=== PATIENT | female | born 1975 | race African-American/Black ===

== ENCOUNTER 2019-11-06 05:30 | Inpatient (IN) | payer SELFPAY ==
[2019-11-06] MEDS ORDERED: Ketorolac Tromethamine 30 MG/ML VIAL ONE (05:49)
[2019-11-06 06:27] LABS: #Eosinphils 0.2 thou/uL (0.0-0.7); #Lymphocytes 2.1 thou/uL (1.20-3.40); #Monocytes 0.5 thou/uL (0.11-0.59); #Neutrophils 3.1 thou/uL (1.40-6.50); %Basophils 0.7 % (0.0-1.0); %Eosinophils 3.9 % (0.0-10.0); %Lymphocytes 34.6 % (21.0-51.0); %Monocytes 8.2 % (0.0-10.0); %Neutrophils 52.7 % (42.0-75.0); Hemoglobin 10.4 g/dL (12.0-16.0); Mean Corpuscular HGB CONC 32.3 g/dL (32.0-36.0); Mean Corpuscular Hemoglobin 27.6 pg (27.0-31.0); Mean Corpuscular Volume 85.2 fL (78.0-98.0); Mean Platelet Volume 7.3 fL (7.4-10.4); Platelet Count 269 thou/uL (130-400); RBC Distribution Width 17.1 % (11.5-14.5); Red Blood Cell (RBC) Count 3.78 mill/uL (4.20-5.40)
[2019-11-06 06:47] LABS: ALT (SGPT) Less than 7 U/L (8-55); AST (SGOT) 9 U/L (5-34); Albumin 3.8 g/dL (3.5-5.0); Alkaline Phosphatase 78 U/L (40-110); Anion Gap 13 mmol/L (10-20); BUN (Urea Nitrogen) 9 mg/dL (7.0-18.7); Bilirubin, Total 0.4 mg/dL (0.2-1.2); Calc. Creatinine Clearance 0 mL/min (70-130); Calcium 8.9 mg/dL (7.8-10.44); Carbon Dioxide 24 mmol/L (22-29); Chloride 106 mmol/L (98-107); Estimated GFR-MDRD Greater than 90; Globulin 3.1 g/dL (2.4-3.5); Glucose 142 mg/dL (70-105); Potassium 3.8 mmol/L (3.5-5.1); Protein, Total 6.9 g/dL (6.0-8.3); Sodium 139 mmol/L (136-145)
--- NOTE | 2019-11-06 08:32 | RAD ---
Exam: Chest one view HISTORY:Chest pain Comparison: 12/07/2018 FINDINGS: Cardiac silhouette: Normal Aorta: Unremarkable Pulmonary vessels: Normal Costophrenic angles: Clear LUNGS: No masses or consolidation. Pneumothorax: None Osseous abnormalities: None IMPRESSION: No acute cardiopulmonary process.
[2019-11-06 10:47] LABS: CKMB 2.7 ng/mL (0-6.6)
[2019-11-06] MEDS ORDERED: Aspirin Chewable 81 MG TAB ONE (10:57)
[2019-11-06] MEDS ORDERED: Enoxaparin Sodium 80 MG/0.8 ML SYRINGE ONE (10:57)
--- NOTE | 2019-11-06 11:02 | PDOC.FPRHP ---
- History of Present Illness Chief Complaint: chest pain History of Present Illness: Patient is a 44F with PMHx of DM2, HTN, HLD, migraines, conversion disorder? that presents with chest pain. Patient reports that the pain began this morning at 3am in her back. She states it recurred around 5am and it started to wrap around to her chest and down her arms. She denies any chest pain currently. She states that this has not ever happened to her before. No previous [place] hx. She states the pain was accompanied by feelings of nausea, lightheadedness, dizziness, and some sob that have since improved. She also endorses 1 episode of loose stool yesterday. Has not seen a physician in over 1 year, has not been taking any medications for the same time period because she does not have insurance. PCP: [facility] ED Course: therapeutic lovenox, toradol, asa, 1L NS - Allergies/Adverse Reactions Allergies Allergy/AdvReac Type Severity Reaction Status Date / Time No Known Allergies Allergy Verified 11/06/19 12:48 - Home Medications Medication Instructions Recorded Confirmed Type No Known 11/06/19 11/06/19 History - History PMHx: DM2, HTN, HLD, Migraines, conversion disorder? PSHx: dermoid cyst removal FHx: DM, HTN Social: smokes 3 cigars/day, drinks 1x/week, no drug use - Review of Systems General: denies: fever/chills, weight/appetite/sleep changes Eyes: denies: eye pain ENT: denies: nasal congestion, rhinorrhea Respiratory: reports: cough (chronic), shortness of breath Cardiovascular: reports: chest pain. denies: edema Gastrointestinal: reports: nausea, diarrhea. denies: vomiting Genitourinary: denies: incontinence, polyuria Skin: denies: rashes, jaundice Musculoskeletal: reports: tenderness (shoulders, arms) Neurological: denies: numbness, syncope Psychological: denies: anxiety, depression - Vital signs BP: [164/85] HR: [77] RR: [23] Tmax: [98.6] Pox: [100]% on [RA] Wt: [77.11kg] - Physical Exam Constitutional: NAD, awake, alert and oriented HEENT: EOMI, MMM Neck: supple, FROM Chest: no-tender to palpation, no lesions Heart: RRR, normal S1/S2 Lungs: CTAB, no wheezing Abdomen: soft, non-tender, bowel sounds present Musculoskeletal: normal structure, normal tone Neurological: no focal deficit, normal sensation Skin: no rash/lesions, good turgor Heme/Lymphatic: no unusual bruising or bleeding, no purpura Psychiatric: normal mood and affect, good judgment and insight FMR H&P: Results - Labs Result Diagrams: 11/06/19 06:19 11/06/19 06:19 Lab results: WBC 6.0 thou/uL (4.8-10.8) 11/06/19 06:19 Hgb 10.4 g/dL (12.0-16.0) L 11/06/19 06:19 Hct 32.2 % (36.0-47.0) L 11/06/19 06:19 MCV 85.2 fL (78.0-98.0) 11/06/19 06:19 Plt Count 269 thou/uL (130-400) 11/06/19 06:19 Neutrophils % 52.7 % (42.0-75.0) 11/06/19 06:19 Sodium 139 mmol/L (136-145) 11/06/19 06:19 Potassium 3.8 mmol/L (3.5-5.1) 11/06/19 06:19 Chloride 106 mmol/L (98-107) 11/06/19 06:19 Carbon Dioxide 24 mmol/L (22-29) 11/06/19 06:19 BUN 9 mg/dL (7.0-18.7) 11/06/19 06:19 Creatinine 0.73 mg/dL (0.6-1.1) 11/06/19 06:19 Glucose 142 mg/dL (70-105) H 11/06/19 06:19 Calcium 8.9 mg/dL (7.8-10.44) 11/06/19 06:19 Total Bilirubin 0.4 mg/dL (0.2-1.2) 11/06/19 06:19 AST 9 U/L (5-34) 11/06/19 06:19 ALT Less than 7 U/L (8-55) L 11/06/19 06:19 Alkaline Phosphatase 78 U/L (40-110) 11/06/19 06:19 CK-MB (CK-2) 2.7 ng/mL (0-6.6) 11/06/19 09:50 Serum Total Protein 6.9 g/dL (6.0-8.3) 11/06/19 06:19 Albumin 3.8 g/dL (3.5-5.0) 11/06/19 06:19 - EKG Interpretation EKG: NSR - Radiology Interpretation Chest x-ray Status: report reviewed by me (No cardiopulmonary process) FMR H&P: A/P - Problem List (1) HTN (hypertension) Current Visit: Yes Status: Chronic Code(s): I10 - ESSENTIAL (PRIMARY) HYPERTENSION (2) HLD (hyperlipidemia) Current Visit: Yes Status: Chronic Code(s): E78.5 - HYPERLIPIDEMIA, UNSPECIFIED (3) DM2 (diabetes mellitus, type 2) Current Visit: Yes Status: Chronic (4) Conversion disorder Current Visit: Yes Status: Chronic Code(s): F44.9 - DISSOCIATIVE AND CONVERSION DISORDER, UNSPECIFIED (5) Migraines Current Visit: Yes Status: Chronic Code(s): G43.909 - MIGRAINE, UNSP, NOT INTRACTABLE, WITHOUT STATUS MIGRAINOSUS (6) Atypical chest pain Current Visit: Yes Status: Acute Code(s): R07.89 - OTHER CHEST PAIN (7) Normocytic anemia Current Visit: Yes Status: Chronic Code(s): D64.9 - ANEMIA, UNSPECIFIED - Plan Patient is a 44F with PMHx of DM2, HTN, HLD, conversion disorder, migraines that is being admitted for workup for atypical chest pain #Atypical chest pain -chest pain started this am, started in back and wrapped around to chest/arms -EKG: nsr -Trop: 0.016>0.147, trend trops -CXR: negative for acute cardiopulmonary process -asa -nitrostat prn -ekg for chest pain recurrence -telemetry monitoring overnight -echo ordered, pending -stress test in am -npo at midnight -FLP, TSH, A1C #Normocytic anemia -denies blood in stool and urine -iron studies, folate, b12 pending -will continue to monitor #DM2 -has not been on meds for >1 yr -reportedly used to take insulin -A1C -ISS -ACHS checks #HTN -on no home meds -hydralazine IV prn -will start lisinopril #HLD -FLP pending #Conversion disorder/complex migraines -patient reports at times when she is stressed her limbs will grow weak, and will normalize -no reports of weakness at this time DVT ppx: SCDs Dispo: tele obs for atypical cp workup including flp, tsh, a1c, echo, stress test in am Code: Full PCP: CC FMR H&P: Upper Level - Pertinent history 44 yo F here with complaint of back pain across her shoulder blades with associated nausea of SOB that onset at about 0300 today. She denies previous symptoms similar to these. She has no cardiac hx. She has FHx of HTN. Her medical Hx is significant for uncontrolled DM2. Upon arrival to the ER, her vitals other than elevated BP were normal. Initial trop was negative, however repeat was indeterminate. PMHx: HTN, DM2 PSHx: None FHx: Paternal HTN and DM2 Social Hx: smokes daily, infrequent ETOH, no drugs - Pertinent findings See environmental intern note for full ROS, PE, vitals, and labs ROS Gen denies fever or chills CV Complains of pressure. Denies palpitations. Resp Complains of previous SOB. Denies cough or hemoptysis GI complains of previous nausea denies dysuria, frequency, urgency Neuro Denies numbness, weakness, changes in vision PE General A&O x4 HEENT NCAT CV RRR, no murmur Resp CTA Abd No distension or tenderness Extremities no edema Neuro No focal deficits - Plan Date/Time: 11/06/19 1102 IZack DO, have evaluated this patient and agree with findings/plan as outlined by environmental intern resident. Pertinent changes/additions are listed here. 1. Elevated troponin -Concern for possible CAD vs arrhythmia -EKG shows NSR without T wave or ST changes -Admit to tele obs -Trend trops -Lipid, TSH, A1c -Stress in am 2. HTN -Start SHIRA-I 3. DM2 -Start metformin -A1c as above -Low carb diet when not NPO -Accucheck ACHS -Mild SSI 4. Normocytic anemia - hemodynamically stable and asymptomatic - check Fe studies, B12, Folate PPx SCD Diet HH and Low carb Code Full Dispo: Good condition. Expect overnight obs with possible dc in morning following stress test Addendum - Attending - Attending Attestation Date/Time: 11/06/19 1404 I personally evaluated the patient and discussed the management with Dr. Petit /Len I agree with the History, Examination, Assessment and Plan documented above with any addition or exceptions noted below. 44 yo AAF PMH IDDM, HTN, non compliance. CP since 0300. Started midline lower back and wrapped around right chest. States it is a squeezing in nature. Denies cough, SOB, or recent travel. No known CVD. Grandma with UT. Reproducable to palpation. Worse along level T8-10. Exam otherwise unremarkable. Labs show elevated trop 0.016->0.1-> 0.3. EKG unremarkable with normal intervals NO ST Changes. CXR unremarkable. Admit for NSTEMI Type 1 vs type 2. Has received therapeutic lovenox. Will add BNP and D-dimer to labs to r/o PE. Cardiology consultation. F/U recommendations but will likely need cath.
[2019-11-06] MEDS ORDERED: Enoxaparin Sodium 30 MG/0.3 ML SYRINGE ONE (11:24)
[2019-11-06] MEDS ORDERED: Enoxaparin Sodium 40 MG/0.4 ML SYRINGE ONE (11:24)
[2019-11-06] MEDS ORDERED: Iopamidol 370 76% 100 ML VIAL ONE (12:39)
[2019-11-06] MEDS ORDERED: Ondansetron ODT 4 MG TAB SL PRN (12:40)
[2019-11-06] MEDS ORDERED: Ondansetron PF 4 MG/2 ML Vial IVP PRN (12:40)
[2019-11-06] MEDS ORDERED: Nitroglycerin 0.4 MG TAB (25 Tab Bottle) PO PRN (12:46)
[2019-11-06] MEDS ORDERED: hydrALAZINE 20 MG/ML VIAL SLOW IVP PRN (12:46)
[2019-11-06] MEDS ORDERED: Dextrose 5% in Water 1,000 ML IV PRN (12:46)
[2019-11-06] MEDS ORDERED: Acetaminophen 325 MG TAB PO PRN (12:46)
[2019-11-06] MEDS ORDERED: Famotidine 20 MG TAB PO PRN (12:46)
[2019-11-06] MEDS ORDERED: HumaLOG 300 UNITS/3 ML VIAL SC PRN ×2 (12:46)
[2019-11-06] MEDS ORDERED: Dextrose 50% Abboject 50 ML SYRINGE SLOW IVP PRN (12:46)
[2019-11-06] MEDS ORDERED: Nicotine 14 MG PATCH TD SCH (13:00)
[2019-11-06 13:17] LABS: BHCG - Serum Negative (NEGATIVE); Pregs Control Background? CLEAR/WHITE (CLR/WHITE); Pregs Control Bar Appear? YES (CONTROL BAR)
[2019-11-06] MEDS ORDERED: Lisinopril 10 MG TAB PO SCH (13:30)
[2019-11-06] MEDS ORDERED: Communication Order-Pharmacy FS SCH (15:15)
--- NOTE | 2019-11-06 15:33 | CON ---
DATE OF CONSULTATION: 11/06/2019 INDICATION FOR CONSULTATION: A 44-year-old female with back pain, which radiated to the chest area with risk factors for coronary artery disease and slightly abnormal cardiac enzymes. HISTORY OF PRESENT ILLNESS: This is a very pleasant 44-year-old female with risk factors for coronary artery disease, which include diabetes, hypertension, and dyslipidemia, who has had chest pain early this morning in her back. She got up, she massaged, at least her boyfriend did, and it went away. She went back to bed. She woke up again with the pain. At this time, it radiated to both axillary areas in the arm. She describes being too tight. She has some shortness of breath. She then presented to the hospital to the emergency room. Her EKG was unremarkable. Cardiac enzymes showed first set of enzymes to be negative and this is slightly increased up to 0.147. We were asked to see her. She is actually just had an echocardiogram performed, we will also evaluate that. She has had no previous cardiac history, but does have significant risk factors for coronary artery disease. PAST MEDICAL HISTORY: Significant for conversion disorder and history of migraines. She is anemic. She has dyslipidemia, hypercholesterolemia, and also hypertension and type 2 diabetes. She has had no other significant surgeries. SOCIAL HISTORY: She is single. She smokes cigarettes. She started smoking about 2 years ago. Previous to that, did not smoke. She denies any illicit drug use. FAMILY HISTORY: Noncontributory for any early heart disease. ALLERGIES: THERE ARE NO KNOWN DRUG ALLERGIES. MEDICATIONS: Her medications in the hospital include; 1. Aspirin. 2. Lovenox. 3. Lisinopril. 4. Metformin. 5. Nicoderm patch. REVIEW OF SYSTEMS: A 12-point review of systems unremarkable. There was no history of present illness. PHYSICAL EXAMINATION: GENERAL: Reveals a well-developed, well-nourished female, in no acute distress. VITAL SIGNS: Blood pressure is 160/89 and heart rate is 85, shows a sinus rhythm. She is afebrile and respiratory rate 16. HEENT: Shows head to be normocephalic and atraumatic. Carotid pulses are present. There were no bruits. CHEST: Clear to auscultation without rales, rhonchi, or wheezing. CARDIOVASCULAR: Reveals a regular rate and rhythm. Normal S1 and S2. There is no S3 or S4. There were no significant murmurs, heaves, thrills, bruits, or rubs noted. ABDOMEN: Soft and nontender. Positive bowel sounds are present. EXTREMITIES: Show no clubbing, cyanosis, or edema. Peripheral pulses are present. NEUROLOGIC: She appears to be intact. SKIN: Warm and dry. We will continue to monitor very closely. LABORATORY DATA: Her first set of enzymes showed a troponin I of 0.016, increased up to 0.1 and then up to 0.3. We will continue to trend these enzymes. If they remains stable, then she can undergo a stress test. IMPRESSION AND PLAN: 1. Chest pain, which may or may not be cardiac in nature. She did have slight elevation of cardiac enzymes making it somewhat suspicious and she does have risk factors for coronary artery disease and she will need further evaluation, if not cardiac catheterization at least by stress testing. 2. History of diabetes. This will be dealt with by the primary care service. Her blood sugar was 142 and appears to be under reasonable control. 3. Anemia. Hemoglobin 10.9 of uncertain etiology. She has normal renal function. 4. Hypertension. We will need to adjust her medications in order to keep the blood pressure in the 130s. 5. Hypercholesterolemia. I do not see a recent cholesterol level. We will need to evaluate to see exactly what the cholesterol is and whether or not the medications would be appropriate. 6. Tobacco abuse. She will be advised strongly to stop smoking altogether. At this time, I do not see that she is actually on any statin medications. We will need to start her on some kind of medications for her cholesterol. Further recommendations will depend on the results from the echocardiogram and further cardiac enzyme evaluation. Job ID: [id number]
[2019-11-06] MEDS ORDERED: Verapamil 5 MG/2 ML VIAL ONE (15:54)
[2019-11-06] MEDS ORDERED: Heparin 10,000 UNITS/1 ML VIAL ONE (15:54)
[2019-11-06] MEDS ORDERED: Nitroglycerin 100MG/250ML BOT 250 ML ONE (15:54)
[2019-11-06] MEDS ORDERED: metFORMIN 500 MG TAB PO SCH (17:00)
[2019-11-06] MEDS ORDERED: Acetaminophen/Codeine 30-300mg Tablet PO PRN ×4 (17:14)
[2019-11-06] MEDS ORDERED: Sodium Chloride 0.9% 200 ML IV PRN ×2 (17:14)
[2019-11-06] MEDS ORDERED: Nitroglycerin 0.4 MG TAB (25 Tab Bottle) SL PRN ×2 (17:14)
[2019-11-06] MEDS ORDERED: Communication Order-Pharmacy FS ONE (17:25)
[2019-11-06 18:08] LABS: Troponin I 0.763 ng/mL (< 0.028)
[2019-11-06] MEDS ORDERED: Vancomycin 1.5 GRAM/300 ML BAG 1.5 GM in Premix Bag 1 BAG IVPB SCH (18:30)
[2019-11-06] MEDS ORDERED: Enoxaparin Sodium 80 MG/0.8 ML SYRINGE SC SCH (21:00)
[2019-11-06] MEDS ORDERED: Triple Antibiotic Ointment 30 GM TUBE TOP SCH (21:00)
--- NOTE | 2019-11-07 00:22 | CON ---
DATE OF CONSULTATION: 11/06/2019 REASON FOR CONSULTATION: To evaluate patient for coronary artery bypass grafting. HISTORY OF PRESENT ILLNESS: Ms. Crockett is a 44-year-old woman who was admitted through the emergency department. She has had chest pain and was brought to the emergency department. She has history of longstanding diabetes mellitus. She has been on insulin and metformin previously. She is back on metformin now. She underwent cardiac catheterization earlier today. She has minimal LAD disease. She has significant OM disease in 3 separate branches. She also has significant right coronary disease. Potential bypassable targets include a right coronary, OM1, 2 and 3. Echocardiogram shows an ejection fraction of 30% to 35% percent with no significant valvular disease. PAST MEDICAL HISTORY: 1. Coronary artery disease. 2. Diabetes mellitus. 3. Hypertension. 4. Dyslipidemia. PAST SURGICAL HISTORY: 1. [place] as a child for what sounds like an allergic reaction and resuscitation. 2. MRSA infection and debridement of abscesses approximately 10 years ago. 3. Removal of ovarian cyst. ALLERGIES: NONE. CURRENT MEDICATIONS: Noted. SOCIAL HISTORY: She is single. She is accompanied by her boyfriend. She smokes cigarettes, but does not use any illicit drugs. REVIEW OF SYSTEMS: A 10-point review of systems is performed and is negative except as above. PHYSICAL EXAMINATION: GENERAL: This is a well-developed, well-nourished young woman, resting comfortably on the telemetry floor. VITAL SIGNS: Her height is 5 feet 3 inches, weight is 160 pounds, BSA is 1.8, temperature is 98.6, pulse is 78 and regular, blood pressure is 138/68. HEENT: Sclerae nonicteric. Pupils equal round bilaterally. NECK: Supple without bruit. CHEST: Clear bilaterally. HEART: Rhythm is regular without murmur. ABDOMEN: Soft and nontender with no masses. EXTREMITIES: No edema. VASCULAR: She has palpable carotid, radial, femoral, dorsalis pedis pulses bilaterally. She was catheterized through a right radial venous. There is no venous varicosities or venous stasis changes. LABORATORY DATA: Of note, hemoglobin is 10.4, platelet count is 269,000, potassium is 3.8, creatinine is 0.73. IMAGING: Chest x-ray shows no dominant lung mass. ASSESSMENT AND PLAN: This is a 44-year-old woman with severe three-vessel disease. Risks, benefits, and options of coronary artery bypass grafting were discussed with her. Plan is for bypass to OM1, 2, 3 and right coronary. Job ID: [id number]
[2019-11-07 04:51] LABS: #Basophils 0.1 thou/uL (0.0-0.2); #Eosinphils 0.2 thou/uL (0.0-0.7); #Lymphocytes 1.9 thou/uL (1.20-3.40); #Monocytes 0.4 thou/uL (0.11-0.59); %Basophils 1.4 % (0.0-1.0); %Eosinophils 3.4 % (0.0-10.0); %Lymphocytes 28.5 % (21.0-51.0); %Monocytes 6.4 % (0.0-10.0); %Neutrophils 60.4 % (42.0-75.0); Hemoglobin 9.9 g/dL (12.0-16.0); Mean Corpuscular HGB CONC 32.3 g/dL (32.0-36.0); Mean Corpuscular Volume 83.7 fL (78.0-98.0); Mean Platelet Volume 7.5 fL (7.4-10.4); Platelet Count 237 thou/uL (130-400); RBC Distribution Width 16.9 % (11.5-14.5); Red Blood Cell (RBC) Count 3.67 mill/uL (4.20-5.40); White Blood Cell (WBC) Count 6.6 thou/uL (4.8-10.8)
[2019-11-07 04:58] LABS: Hemoglobin A1c 5.7 % (4.0-6.0)
[2019-11-07 05:13] LABS: Anion Gap 12 mmol/L (10-20); BUN (Urea Nitrogen) 8 mg/dL (7.0-18.7); Calc. Creatinine Clearance 118 mL/min (70-130); Calcium 8.8 mg/dL (7.8-10.44); Carbon Dioxide 24 mmol/L (22-29); Cardiac Risk 6.5 (Less than 4.5); Chloride 106 mmol/L (98-107); Cholesterol 220 mg/dl (< 200 Desired); Estimated GFR-MDRD Greater than 90; Glucose 129 mg/dL (70-105); HDL Cholesterol 34 mg/dL (>60 Neg Risk); Iron 18 ug/dL (50-170); Iron Binding Capacity, Total 440 mcg/dL (265-497); LDL Cholesterol, Calculated 149 mg/dL; Potassium 3.6 mmol/L (3.5-5.1); Sodium 138 mmol/L (136-145); Transferrin, Serum 352 mg/dL (180-382); Triglycerides 184 mg/dL (Less than 150)
[2019-11-07 05:32] LABS: Thyroid Stimulating Hormone 1.4128 uIU/mL (0.35-4.94)
--- NOTE | 2019-11-07 05:37 | PDOC.FM ---
- Subjective Subjective: Patient doing okay this morning. Had a difficult time sleeping last night. Had a headache with the nitro that has since resolved. Discussed plan of care of CABG today, patient agreeable with plan of care. Discussed smoking cessation with patient as well. - Objective Vital Signs & Weight: Vital Signs (12 hours) Temp Pulse Resp BP Pulse Ox 11/07/19 02:56 85 18 137/87 98 11/06/19 22:35 98.3 F 84 16 130/69 98 11/06/19 20:00 99 11/06/19 19:21 98.0 F 76 16 143/70 H 99 Weight Weight 73.437 kg I&O: 11/05/19 11/06/19 11/07/19 06:59 06:59 06:59 Intake Total 1240 Output Total 300 Balance 940 Result Diagrams: 11/07/19 04:37 11/07/19 04:37 EKG Reviewed by me: Yes (sinus 70s, depressed ST) Phys Exam - Physical Examination Constitutional: NAD HEENT: moist MMs, sclera anicteric Neck: supple, full ROM Respiratory: no wheezing, clear to auscultation bilateral Cardiovascular: RRR, no significant murmur Gastrointestinal: soft, non-tender Musculoskeletal: no edema, pulses present Neurological: non-focal, moves all 4 limbs Psychiatric: normal affect, A&O x 3 Skin: no rash, normal turgor Dx/Plan (1) HTN (hypertension) Code(s): I10 - ESSENTIAL (PRIMARY) HYPERTENSION Status: Chronic (2) HLD (hyperlipidemia) Code(s): E78.5 - HYPERLIPIDEMIA, UNSPECIFIED Status: Chronic (3) DM2 (diabetes mellitus, type 2) Status: Chronic (4) Conversion disorder Code(s): F44.9 - DISSOCIATIVE AND CONVERSION DISORDER, UNSPECIFIED Status: Chronic (5) Migraines Code(s): G43.909 - MIGRAINE, UNSP, NOT INTRACTABLE, WITHOUT STATUS MIGRAINOSUS Status: Chronic (6) Atypical chest pain Code(s): R07.89 - OTHER CHEST PAIN Status: Acute (7) Normocytic anemia Code(s): D64.9 - ANEMIA, UNSPECIFIED Status: Chronic (8) NSTEMI (non-ST elevated myocardial infarction) Code(s): I21.4 - NON-ST ELEVATION (NSTEMI) MYOCARDIAL INFARCTION Status: Acute - Plan Plan: Patient is a 44F with PMHx of DM2, HTN, HLD, conversion disorder, migraines that is admitted for NSTEMI #NSTEMI -chest pain started 1/9 am started in back and wrapped around to chest/arms -EKG: nsr, repeat EKG NSR without ST elevation -CXR: negative for acute cardiopulmonary process -Trop: 0.016>0.147> 0.390>0.763 -cardiology, Dr. Guthrie, consulted; performed cath on patient 11/06 -cath: EF 50-55%, multi-vessel CAD with CABG recommended -echo: EF 30-35% -asa -nitrostat prn -CV Surgery consulted, Dr. Peace, plans for CABG today -triglycerides 184, total chol 220, LDL 149, HDL 34, begin statin today #Normocytic anemia -denies blood in stool and urine -iron studies: iron low 18, TIBC wnl 440, transferrin wnl 352, ferritin low 9.85 - vit B 12 wnl 643 - folate pending - likely iron deficiency anemia, possibly in combination with folate deficiency -will start iron at this time -will continue to monitor #Hx of DM2, resolved -has not been on meds for >1 yr -reportedly used to take insulin -A1C 5.7, wnl #HTN -on no home meds -hydralazine IV prn -lisinopril started #HLD -triglycerides 184, total chol 220, LDL 149, HDL 34 -begin statin today #Conversion disorder/complex migraines -patient reports at times when she is stressed her limbs will grow weak, and will normalize -no reports of weakness at this time DVT ppx: SCDs Dispo: tele inpatient for NSTEMI, plan for CABG today Code: Full PCP: [facility]
[2019-11-07 05:43] LABS: Ferritin 9.85 ng/mL (10-291)
[2019-11-07] MEDS ORDERED: ceFAZolin 1 GM/D5W 1 GM in Premix Bag 1 BAG IVPB SCH (06:00)
[2019-11-07] MEDS ORDERED: Midazolam HCl 2 mg/2 ml Vial ONE ×2 (08:24→08:35)
[2019-11-07] MEDS ORDERED: Albumin 5% 500 ML ONE (08:25)
[2019-11-07] MEDS ORDERED: Fentanyl 100 MCG/2 ML VIAL ONE ×2 (08:34)
[2019-11-07] MEDS ORDERED: Norepinephrine 4 MG/4 ML VIAL ONE (08:35)
[2019-11-07] MEDS ORDERED: Nitroglycerin 50 MG/250 ML BOT 250 ML ONE ×2 (08:35→13:59)
[2019-11-07] MEDS ORDERED: Heparin 10,000 UNITS/1 ML VIAL 30,000 UNITS in Sodium Chloride 0.9% 1,000 ML FS SCH (08:45)
[2019-11-07] MEDS ORDERED: CEFAZOLIN 1 GM VIAL SLOW IVP SCH (09:00)
[2019-11-07] MEDS ORDERED: Aspirin 325 mg Enteric Coated Tablet PO SCH (09:00)
[2019-11-07] MEDS ORDERED: Lisinopril 10 MG TAB PO SCH (09:00)
[2019-11-07] MEDS ORDERED: EPINEPHrine 1 MG/ML AMP ONE (09:05)
[2019-11-07] MEDS ORDERED: Bupivacaine PF 0.5% 30 ML VIAL ONE (09:05)
[2019-11-07] MEDS ORDERED: Dexamethasone 4 mg/ml Vial ONE (09:05)
--- NOTE | 2019-11-07 11:06 | PRG ---
DATE OF SERVICE: 11/07/2019 I was unable to examine the patient today because she is at this moment in bypass surgery. She is a 44-year-old female, who was admitted with what eventually became NSTEMI. She was taken to catheterization lab and found to have severe 3-vessel disease and was, therefore, taken for CABG early this morning. We will continue to follow with the Cardiology Service postoperatively. Job ID: [id number]
[2019-11-07] MEDS ORDERED: Insulin Regular 300 UNITS/3 ML VIAL ONE (11:29)
[2019-11-07] MEDS ORDERED: PHENYLEPHRINE-NS 100 MCG/ML 10 ML SYRINGE ONE (12:08)
[2019-11-07] MEDS ORDERED: Sodium Bicarb 50 MEQ/50 ML Abboject 8.4% SYRINGE ONE (13:45)
[2019-11-07] MEDS ORDERED: Aminocaproic Acid 5 GM/20 ML VIAL ONE (13:45)
[2019-11-07] MEDS ORDERED: Protamine Sulfate 250 MG/25 ML VIAL ONE (13:45)
[2019-11-07] MEDS ORDERED: Magnesium Sulfate 1 GM/2 ML VIAL ONE (13:45)
[2019-11-07] MEDS ORDERED: Rocuronium Bromide 10 MG/ML (10ML VIAL) ONE (13:45)
[2019-11-07] MEDS ORDERED: Ondansetron PF 4 MG/2 ML Vial ONE (13:45)
[2019-11-07] MEDS ORDERED: Potassium Chloride 60 MEQ/30 ML VIAL ONE (13:45)
[2019-11-07] MEDS ORDERED: Lidocaine 1% PF 5 ML VIAL ONE (13:45)
[2019-11-07] MEDS ORDERED: Heparin 5,000 UNITS/ML VIAL ONE (13:45)
[2019-11-07] MEDS ORDERED: Thrombin 5000 UNITS/5 ML VIAL ONE (13:45)
[2019-11-07] MEDS ORDERED: PROPOFOL 200 MG/20 ML VIAL ONE (13:45)
[2019-11-07] MEDS ORDERED: Papaverine 60 MG/2 ML VIAL ONE (13:45)
[2019-11-07] MEDS ORDERED: Heparin 30,000 units/30 ml VIAL ONE (13:45)
[2019-11-07] MEDS ORDERED: Vecuronium 10 MG VIAL ONE (13:45)
[2019-11-07] MEDS ORDERED: Cardioplegic Soln 1,000 ML BAG ONE (13:45)
[2019-11-07] MEDS ORDERED: Lidocaine 2% PF 5 ML VIAL ONE (13:45)
[2019-11-07] MEDS ORDERED: Succinylcholine Chloride 20 MG/ML 10 ml SYRINGE FS ONE (13:45)
[2019-11-07] MEDS ORDERED: Calcium Chloride 1 GM/10 ML Abboject SYRINGE ONE (13:45)
[2019-11-07] MEDS ORDERED: Hetastarch 6% 500 ML 500 ML IVPB PRN (14:11)
[2019-11-07] MEDS ORDERED: Norepinephrine 8 MG/0.9% NS 250 ML IVPB PRN (14:11)
[2019-11-07] MEDS ORDERED: Post-Op Insulin Drip Protocol IVPB ONE (14:11)
[2019-11-07] MEDS ORDERED: Promethazine HCl 25 MG/ML VIAL IM PRN (14:11)
[2019-11-07] MEDS ORDERED: Nitroglycerin 50 MG/250 ML BOT 250 ML IVPB PRN (14:11)
[2019-11-07] MEDS ORDERED: Fentanyl 100 MCG/2 ML VIAL SLOW IVP PRN ×2 (14:11)
[2019-11-07] MEDS ORDERED: Phenylephrine 10 MG/NS 250 ML 250 ML IVPB PRN (14:11)
[2019-11-07] MEDS ORDERED: Guaifenesin DM 100-10/5 ML UDCUP PO PRN (14:11)
[2019-11-07] MEDS ORDERED: Magnesium 2 GM/50 ML 2 GM in Premix Bag 1 BAG IVPB SCH (14:11)
[2019-11-07] MEDS ORDERED: Ondansetron PF 4 MG/2 ML Vial IVP PRN (14:11)
[2019-11-07] MEDS ORDERED: Bisacodyl 5 MG TAB PO PRN (14:11)
[2019-11-07] MEDS ORDERED: Acetaminophen 325 MG TAB PO PRN (14:11)
[2019-11-07] MEDS ORDERED: Morphine 2 MG/ML SYRINGE SLOW IVP PRN (14:11)
[2019-11-07] MEDS ORDERED: hydrALAZINE 20 MG/ML VIAL SLOW IVP PRN (14:11)
[2019-11-07] MEDS ORDERED: D5 1/2 NS w/20 mEq KCL 1,000 ML IV SCH (14:11)
[2019-11-07] MEDS ORDERED: Mag-Al 1200 mg/1200 mg/30 ML UDCUP PO PRN (14:11)
[2019-11-07] MEDS ORDERED: Bisacodyl 10 MG SUPP PR PRN (14:11)
--- NOTE | 2019-11-07 14:21 | RAD ---
XR Chest 1 View Portable History: Postop heart surgery Comparison: Radiograph prior day Findings: New multiple midline sternotomy wires and mediastinal drains are present. Mild atelectatic changes. Endotracheal tube tip at the level of the clavicles in good position. Centr al venous catheter tip at the right atrium. Impression: Postoperative findings without complication.
[2019-11-07] MEDS ORDERED: D5 1/2 NS w/20 mEq KCL 1,000 ML ONE (14:31)
[2019-11-07] MEDS ORDERED: hydrALAZINE 20 MG/ML VIAL ONE (14:31)
[2019-11-07 14:39] LABS: INR-International Normal Ratio 1.4; PTT 30.5 SEC (22.9-36.1); Prothrombin Time 16.8 SEC (12.0-14.7)
[2019-11-07 14:41] LABS: #Eosinphils 0.2 thou/uL (0.0-0.7); #Lymphocytes 2.5 thou/uL (1.20-3.40); #Neutrophils 15.9 thou/uL (1.40-6.50); %Basophils 0.1 % (0.0-1.0); %Eosinophils 0.8 % (0.0-10.0); %Lymphocytes 12.6 % (21.0-51.0); %Monocytes 5.1 % (0.0-10.0); %Neutrophils 81.4 % (42.0-75.0); Mean Corpuscular HGB CONC 32.2 g/dL (32.0-36.0); Mean Corpuscular Hemoglobin 27.5 pg (27.0-31.0); Mean Corpuscular Volume 85.4 fL (78.0-98.0); Mean Platelet Volume 7.7 fL (7.4-10.4); Platelet Count 178 thou/uL (130-400); RBC Distribution Width 16.3 % (11.5-14.5); Red Blood Cell (RBC) Count 3.65 mill/uL (4.20-5.40); White Blood Cell (WBC) Count 19.6 thou/uL (4.8-10.8)
[2019-11-07] MEDS ORDERED: Dextrose 5% in Water 1,000 ML IV PRN (14:42)
[2019-11-07] MEDS ORDERED: HUMULIN R 100 UNITS in Sodium Chloride 0.9% 100 ML IVPB SCH (14:42)
[2019-11-07] MEDS ORDERED: Dextrose 50% Abboject 50 ML SYRINGE SLOW IVP PRN (14:42)
[2019-11-07] MEDS: Insulin Regular 300 UNITS/3 ML VIAL SC PRN ×2 (14:51→16:10)
[2019-11-07 15:01] LABS: Anion Gap 10 mmol/L (10-20); BUN (Urea Nitrogen) 6 mg/dL (7.0-18.7); Calc. Creatinine Clearance 131 mL/min (70-130); Calcium 7.2 mg/dL (7.8-10.44); Carbon Dioxide 22 mmol/L (22-29); Chloride 115 mmol/L (98-107); Estimated GFR-MDRD Greater than 90; Glucose 141 mg/dL (70-105); Potassium 3.4 mmol/L (3.5-5.1); Sodium 144 mmol/L (136-145)
[2019-11-07] MEDS: CEFAZOLIN 2 GM in Premix Bag 1 BAG IVPB SCH (15:57)
--- NOTE | 2019-11-07 16:27 | PDOC.CPN ---
- Subjective Date: 11/07/19 Time: 16:00 Interval history: Pt. seen and eval. back from OR after CABG x 3. Still intubated. - Review of Systems ROS unobtainable: due to endotracheal tube - Objective Allergies/Adverse Reactions: Allergies Allergy/AdvReac Type Severity Reaction Status Date / Time No Known Allergies Allergy Verified 11/06/19 12:48 Visit Medications: Current Medications Acetaminophen (Tylenol) 650 mg PO Q6H PRN PRN Reason: Headache/Fever Or Mild Pain Hydrocodone Bitart/Acetaminophen ([place] 5/325) 1 tab PO Q4H PRN PRN Reason: Moderate Pain (4-6) Hydrocodone Bitart/Acetaminophen ([place] 5/325) 2 tab PO Q4H PRN PRN Reason: Severe Pain (7-10) Al Hydroxide/Mg Hydroxide (Maalox) 30 ml PO Q4H PRN PRN Reason: Indigestion Albumin Human (Albumin 5%) 12.5 gm IVPB Q6H PRN PRN Reason: To Maintain SBP> 90 mmHG Stop: 11/08/19 14:12 Albumin Human (Albumin 5%) 25 gm IVPB Q6H PRN PRN Reason: To Maintain SBP > 90 mmHG Stop: 11/08/19 14:12 Last Admin: 11/07/19 15:57 Dose: 25 gm Albuterol/Ipratropium (Duoneb) 3 ml NEB [id number] [facility] Aspirin (Aspirin) 325 mg PO DAILY [facility] Atorvastatin Calcium (Lipitor) 20 mg PO HS [facility] Bisacodyl (Dulcolax) 10 mg PO Q12H PRN PRN Reason: Constipation Bisacodyl (Dulcolax) 10 mg MT Q12H PRN PRN Reason: Constipation Dextrose/Water (Dextrose 50%) 25 gm SLOW IVP PRN PRN PRN Reason: PER HYPOGLYCEMIC PROTOCOL Famotidine (Pepcid) 20 mg SLOW IVP DAILY [facility] Fentanyl (Sublimaze) 25 mcg SLOW IVP Q2H PRN PRN Reason: Moderate Pain (4-6) Stop: 11/09/19 13:35 Fentanyl (Sublimaze) 50 mcg SLOW IVP Q2H PRN PRN Reason: Severe Pain (7-10) Stop: 11/09/19 13:35 Glucagon (Glucagon) 1 mg SC PRN PRN PRN Reason: PER HYPOGLYCEMIC PROTOCOL Guaifenesin/Dextromethorphan (Robitussin Dm) 15 ml PO Q4H PRN PRN Reason: Cough Hydralazine HCl (Apresoline) 10 mg SLOW IVP Q6H PRN PRN Reason: To Maintain SBP< 140mmHG Cefazolin Sodium/Dextrose 2 gm (/ Device) 50 mls @ 100 mls/hr IVPB 0100,0900, 1700 [facility] Stop: 11/08/19 09:29 Last Admin: 11/07/19 15:57 Dose: 50 mls Potassium Chloride/Dextrose/Sod Cl (D5 1/2 Ns W/20 Meq Kcl) 1,000 mls @ 40 mls/ hr IV .Q24H [facility] Last Admin: 11/07/19 14:47 Dose: Not Given Hetastarch/Sodium Chloride (Hespan) 500 mls @ 0 mls/hr IVPB PRN PRN PRN Reason: To Maintain SBP > 90mmHg Stop: 11/08/19 13:35 Norepinephrine Bitartrate (Levophed) 250 mls @ 0 mls/hr IVPB PRN PRN; Protocol PRN Reason: To maintain SBP > 90 mmHG Magnesium Sulfate 2 gm/ Device 50 mls @ 50 mls/hr IVPB QAM [facility] Stop: 11/09/19 09:59 Nitroglycerin/Dextrose (Nitroglycerin 50 Mg/250 Ml Bot) 250 mls @ 0 mls/hr IVPB PRN PRN; Protocol PRN Reason: To Maintain SBP< 140mmHG Phenylephrine HCl (Haris-Synephrine) 250 mls @ 0 mls/hr IVPB PRN PRN; Protocol PRN Reason: To maintain SBP > 90 mmHG Vancomycin HCl 1.5 gm/ Device 300 mls @ 200 mls/hr IVPB Q12HR [facility] Stop: 11/08/19 10:29 Insulin Human Regular 100 (units/ Sodium Chloride) 101 mls @ 0 mls/hr IVPB INF [facility]; Protocol Dextrose/Water (D5w) 1,000 mls @ 0 mls/hr IV INF PRN PRN Reason: PRN HYPOGLYCEMIC PROTOCOL Insulin Human Regular (Humulin R) 0 units SC Q4H PRN; Protocol PRN Reason: POST OP SLIDING SCALE Last Admin: 11/07/19 16:10 Dose: 4 unit Ketorolac Tromethamine (Toradol) 15 mg IVP Q6HR [facility] Stop: 11/10/19 18:01 Morphine Sulfate (Morphine) 2 mg SLOW IVP Q15MIN PRN PRN Reason: Severe Pain (7-10) Last Admin: 11/07/19 14:49 Dose: 2 mg Ondansetron HCl (Zofran) 4 mg IVP Q6H PRN PRN Reason: Nausea/Vomiting Last Admin: 11/07/19 15:30 Dose: 4 mg Potassium Chloride (Kcl) 20 meq IVPB PRN PRN PRN Reason: K level </= 4.0 Promethazine HCl (Phenergan) 6.25 mg IM Q4H PRN PRN Reason: Nausea/Vomiting Sodium Chloride (Flush - Normal Saline) 10 ml IVF PRN PRN PRN Reason: Saline Flush Vital Signs & Weight: Vital Signs Pulse BP 11/07/19 14:41 90 188/88 H 11/07/19 14:17 90 154/80 H Weight 161 lb 14.4 oz - Physical Exam Cardiac: regular rate and rhythm, no murmur Lungs: clear to auscultation, ventilated respirations Neuro: grossly intact Abdomen: unremarkable Extremities: no edema - Labs Result Diagrams: 11/07/19 14:15 11/07/19 14:15 Troponin/CKMB CK-MB (CK-2) 2.7 ng/mL (0-6.6) 11/06/19 09:50 Troponin I 0.763 ng/mL (< 0.028) H* 11/06/19 17:17 - Telemetry Sinus rhythms and dysrhythmias: sinus rhythm - Assessment/Plan Assessment/Plan: 1. CAD. s/p CABG x 3 today. SVG-> OM1,OM3,RCA. Small vessels. LAD has proximal 50% stenosis. Target for stent in the future if nec. 2. s/p NSTEMI 3. DMII. On sliding scale insulin. 4. HTN: resume meds when BP stable and taking po. This afternoon the BP is fluctuant. 5. dyslipidemia. Resume statins. 6. Tobacco abuse. Will need smoking cessation teaching. 7. Hx. of noncompliance.
--- NOTE | 2019-11-07 16:57 | OP ---
DATE OF PROCEDURE: 11/07/2019 PREOPERATIVE DIAGNOSES: Coronary artery disease/diabetes mellitus/hypertension/tobacco abuse. POSTOPERATIVE DIAGNOSES: Coronary artery disease/diabetes mellitus/hypertension/tobacco abuse. PROCEDURE PERFORMED: Coronary artery bypass grafting x3: 1. Reverse saphenous vein to 1.0 mm obtuse marginal 1, thin-walled conduit with small diffusely diseased target, this is not a redo target. 2. Reverse saphenous vein to 1.0 mm obtuse marginal 3, thin-walled conduit with small diffusely diseased target, this is not a redo target. 3. Reverse saphenous vein to 1.0 mm right coronary artery, good conduit with small diffusely diseased target, this is not a redo target. CARDIAC NURSE SURGEON: Cristobal Victor MD. ANESTHESIA: General endotracheal. ANESTHESIOLOGIST: Christopher Rooney MD. PUMP TIME: 69 minutes. CROSSCLAMP TIME: 38 minutes. LOW-CORE TEMPERATURE: 34 degrees Celsius. HOME CARE MANAGER: Renae Caceres. DRAINS: 24-Austrian chest tubes x2. DRIPS: Phenylephrine. TRANSFUSIONS: None. DESCRIPTION OF PROCEDURE: After consent was obtained, the patient was brought to the operating room and placed in supine position on the operating table. Appropriate central line and monitor was placed and general endotracheal anesthesia was induced. Chest, abdomen, and legs were prepped and draped in the usual sterile fashion. Both legs were explored to harvest enough saphenous vein to be able to do the bypasses as above. There was no further usable saphenous vein in either lower extremity. Wounds in the extremities were closed in layers and clips were used to close the skin. A median sternotomy was performed. Pericardium and thymic fat were divided with electrocautery. Pericardial stay sutures were placed. Aortic and atrial cannulation was performed. After adequate heparinization, retrograde prime was performed. The patient was placed on cardiopulmonary bypass. Distal targets were marked. Aortic cross-clamp was applied and antegrade sanguineous cardioplegic arrest was obtained. 1 L of antegrade cold [place] cardioplegia was given. Topical cold solution was used. Reverse saphenous vein was anastomosed to the RCA in an end-to-side fashion with running 7-0 Prolene suture. Anastomosis was tested and was hemostatic. A 1-mm probe passed distally prior to completion of the anastomosis. Reverse saphenous vein was anastomosed the OM3 in an end-to-side fashion with running 7-0 Prolene suture, 1-mm probe passed distally prior to completion of the anastomosis. Anastomosis was tested and was hemostatic. The OM2 was too small for bypass based on the caliber of the other grafts. Reverse saphenous vein was anastomosed to OM1 in an end-to-side fashion with running 7-0 Prolene suture. A 1-mm probe passed distally prior to completion of the anastomosis. The cross-clamp was removed and partial occluding clamp placed. Saphenous veins were anastomosed to individual punch sites from the OM3 and RCA. Partial occluding clamp was removed. Saphenous vein to the OM1 was anastomosed to the sidewall of the OM3 graft. Grafts were de-aired and anastomoses inspected for hemostasis, which was good. The patient was warmed and weaned from cardiopulmonary bypass. After resumption of sinus rhythm, good hemodynamics, temperature greater than 36.5, bypass was discontinued. Transfusions were given. 24-Austrian chest tubes were placed in the mediastinum. Decannulation was performed and pursestring suture secured. After adequate hemostasis had been obtained in the mediastinum, sternum was treated with vancomycin paste. The sternum was then closed with #7 wire. Sternum was treated with platelet rich plasma, wires twisted and buried. Peristernal block was then performed. Wounds were irrigated and closed in layers and Dermabond applied to skin. The patient was transferred to the intensive care unit in stable, but critical condition. Needle, sponge, and instrument counts were all reported as correct at the end of the procedure. Job ID: [id number]
[2019-11-07] MEDS: Ketorolac Tromethamine 30 MG/ML VIAL IVP SCH (17:57)
[2019-11-07] MEDS: Potassium Chloride 20 MEQ/100 ML PREMIX BAG IVPB PRN (18:42)
[2019-11-07 18:50] LABS: Actual Bicarbonate (HCO3a) 18.5 mEq/L (22-28); Base Excess (BEa) -5.9 mEq/L (-2.0 to +3.0); CO2 Tension 32.7 mmHg (35.0-45.0); Calcium, Ionized 1.07 mmol/L (1.12-1.30); Carboxyhemoglobin (COHb) 0.7 gm% (0.0-3.0); Hemoglobin (Hb) 10.1 g/dL (12.0-16.0); O2 Tension (PaO2) 91.7 mmHg (80.0-100.0); pH, Arterial 7.37 (7.35-7.45)
[2019-11-07 18:51] LABS: ALV-art Gradient 152.625 (0-20); Puncture Site ALINE
[2019-11-07 19:49] LABS: Hemoglobin 9.9 g/dL (12.0-16.0)
[2019-11-07 20:07] LABS: Potassium 4.1 mmol/L (3.5-5.1)
[2019-11-07] MEDS ORDERED: Atorvastatin Calcium 40 MG TAB PO SCH (21:00)
[2019-11-07] MEDS: Atorvastatin Calcium 20 MG TAB PO SCH (21:13)
[2019-11-07] MEDS: Vancomycin 1.5 GRAM/300 ML BAG 1.5 GM in Premix Bag 1 BAG IVPB SCH (21:13)
[2019-11-08] MEDS: Ketorolac Tromethamine 30 MG/ML VIAL IVP SCH ×4 (00:11→17:01)
[2019-11-08] MEDS: CEFAZOLIN 2 GM in Premix Bag 1 BAG IVPB SCH ×2 (00:12→08:45)
[2019-11-08 03:33] LABS: #Basophils 0.1 thou/uL (0.0-0.2); #Lymphocytes 0.9 thou/uL (1.20-3.40); #Neutrophils 10.5 thou/uL (1.40-6.50); %Basophils 0.7 % (0.0-1.0); %Eosinophils 0.1 % (0.0-10.0); %Lymphocytes 7.2 % (21.0-51.0); %Monocytes 7.6 % (0.0-10.0); %Neutrophils 84.4 % (42.0-75.0); Hemoglobin 9.4 g/dL (12.0-16.0); Mean Corpuscular HGB CONC 31.7 g/dL (32.0-36.0); Mean Corpuscular Hemoglobin 27.2 pg (27.0-31.0); Mean Corpuscular Volume 85.9 fL (78.0-98.0); Mean Platelet Volume 8.2 fL (7.4-10.4); Platelet Count 178 thou/uL (130-400); Red Blood Cell (RBC) Count 3.44 mill/uL (4.20-5.40); White Blood Cell (WBC) Count 12.5 thou/uL (4.8-10.8)
[2019-11-08 03:56] LABS: Anion Gap 13 mmol/L (10-20); BUN (Urea Nitrogen) 6 mg/dL (7.0-18.7); Calc. Creatinine Clearance 131 mL/min (70-130); Carbon Dioxide 19 mmol/L (22-29); Chloride 113 mmol/L (98-107); Estimated GFR-MDRD Greater than 90; Glucose 100 mg/dL (70-105); Potassium 3.8 mmol/L (3.5-5.1); Sodium 141 mmol/L (136-145)
[2019-11-08] MEDS: HYDROcodone/Acetaminophen 5/325 mg Tablet PO PRN ×4 (04:11→20:06)
[2019-11-08] MEDS: Potassium Chloride 20 MEQ/100 ML PREMIX BAG IVPB PRN (04:11)
--- NOTE | 2019-11-08 05:13 | PDOC.FM ---
- Subjective Subjective: Pt was sitting up in bed on eval. Complains of post operative chest wall pain that is worse with movement. Denies pain similar to that which brought her in. No lightheadedness or dizziness. - Objective Vital Signs & Weight: Vital Signs (12 hours) Temp Pulse Resp Pulse Ox 11/08/19 00:32 96 11/08/19 00:00 99.0 F 100 11/07/19 20:00 98.9 F 98 11/07/19 19:17 96 11/07/19 19:13 111 H 20 96 11/07/19 18:00 20 Weight Weight 73.437 kg Most Recent Monitor Data Heart Rate from ECG 107 NIBP 108/73 NIBP BP-Mean 84 Respiration from ECG 17 SpO2 98 I&O: 11/06/19 11/07/19 11/08/19 06:59 06:59 06:59 Intake Total 1240 1195.7 Output Total 300 3250 Balance 940 -2054.3 Result Diagrams: 11/08/19 03:07 11/08/19 03:07 Phys Exam - Physical Examination Mild distress 2/2 pain HEENT: moist MMs, sclera anicteric Neck: full ROM Rapid in low 20's. Diminished excursion. Minimal basilar crackles Cardiovascular: RRR, no significant murmur, no rub Gastrointestinal: soft, non-tender Musculoskeletal: no edema, pulses present Neurological: moves all 4 limbs Psychiatric: normal affect, A&O x 3 Skin: cap refill <2 seconds Dx/Plan (1) Atypical chest pain Code(s): R07.89 - OTHER CHEST PAIN Status: Acute (2) NSTEMI (non-ST elevated myocardial infarction) Code(s): I21.4 - NON-ST ELEVATION (NSTEMI) MYOCARDIAL INFARCTION Status: Acute (3) Conversion disorder Code(s): F44.9 - DISSOCIATIVE AND CONVERSION DISORDER, UNSPECIFIED Status: Chronic (4) DM2 (diabetes mellitus, type 2) Status: Chronic (5) HTN (hypertension) Code(s): I10 - ESSENTIAL (PRIMARY) HYPERTENSION Status: Chronic (6) Migraines Code(s): G43.909 - MIGRAINE, UNSP, NOT INTRACTABLE, WITHOUT STATUS MIGRAINOSUS Status: Chronic (7) Normocytic anemia Code(s): D64.9 - ANEMIA, UNSPECIFIED Status: Chronic - Plan Plan: Patient is a 44F with PMHx of DM2, HTN, HLD, conversion disorder, migraines that is admitted for NSTEMI NSTEMI -Trop: 0.016>0.147> 0.390>0.763 -cardiology, Dr. Guthrie, consulted; performed cath on patient 11/06 -cath: EF 50-55%, multi-vessel CAD with CABG recommended -echo: EF 30-35% -CV Surgery consulted, Dr. Peace, CABG yesterday w/ subsequent ICU admission -current perioperative management per CV surg -triglycerides 184, total chol 220, LDL 149, HDL 34, begin statin today Normocytic anemia -iron studies: iron low 18, TIBC wnl 440, transferrin wnl 352, ferritin low 9.85 -vit B 12 wnl 643 -folate pending -oral iron, further workup as outpt as indicated Hx of DM2, resolved -has not been on meds for >1 yr -reportedly used to take insulin -A1C 5.7, wnl HTN -on no home meds -hydralazine IV prn HLD -triglycerides 184, total chol 220, LDL 149, HDL 34 -statin therapy initiated Conversion disorder/complex migraines -patient reports at times when she is stressed her limbs will grow weak, and will normalize -no reports of weakness at this time DVT ppx: SCDs Dispo: ICU inpatient for NSTEMI, s/p CABG. Routine post operative care. Expect transfer from ICU today per CV surg. Code: Full PCP: CC Addendum - Attending - Attending Attestation Date/Time: 11/08/19 1054 I personally evaluated the patient and discussed the management with Dr. Hernandez I agree with the History, Examination, Assessment and Plan documented above with any addition or exceptions noted below. POD #1 s/p 3V CABG patient appears to be doing well alert responsive with chest tube. History of DM following weight loss HgA1c demonstrates she was recently well controlled off medication.
[2019-11-08 06:24] VITALS: BMI 29.0
[2019-11-08] MEDS ORDERED: Ferrous Sulfate 325 MG TAB PO SCH (08:00)
--- NOTE | 2019-11-08 08:17 | RAD ---
XR Chest 1 View Portable History: Open-heart surgery Comparison: Radiograph prior day Findings: The patient is extubated. The subclavian central venous catheter is similar. Mild atelectas is in both lower lobes. Small left effusion. Mediastinal drains are similar. Impression: Interval extubation without complication.
[2019-11-08] MEDS: Magnesium 2 GM/50 ML 2 GM in Premix Bag 1 BAG IVPB SCH (08:45)
[2019-11-08] MEDS: Aspirin 325 MG TAB PO SCH (08:45)
[2019-11-08] MEDS: Famotidine/PF 20 mg/2ml Vial SLOW IVP SCH (08:46)
[2019-11-08] MEDS: Vancomycin 1.5 GRAM/300 ML BAG 1.5 GM in Premix Bag 1 BAG IVPB SCH (09:30)
--- NOTE | 2019-11-08 13:24 | PDOC.CPN ---
- Subjective Date: 11/08/19 Time: 13:22 Interval history: No new issues. Passing gas. Working with PT. - Review of Systems General: denies: fever/chills, weight/appetite/sleep changes, night sweats, fatigue Respiratory: reports: cough. denies: congestion, shortness of breath, exercise intolerance Cardiovascular: reports: chest pain. denies: palpitation, edema, paroxysmal nocturnal dyspnea, orthopnea Gastrointestinal: denies: nausea, vomiting, diarrhea, constipation, abd pain, GI bleeding Musculoskeletal: denies: pain, tenderness, stiffness, swelling, arthritis/ arthralgias Neurological: denies: numbness, syncope, seizure, weakness - Objective Allergies/Adverse Reactions: Allergies Allergy/AdvReac Type Severity Reaction Status Date / Time No Known Allergies Allergy Verified 11/06/19 12:48 Visit Medications: Current Medications Acetaminophen (Tylenol) 650 mg PO Q6H PRN PRN Reason: Headache/Fever Or Mild Pain Hydrocodone Bitart/Acetaminophen ([place] 5/325) 1 tab PO Q4H PRN PRN Reason: Moderate Pain (4-6) Last Admin: 11/08/19 09:31 Dose: 1 tab Hydrocodone Bitart/Acetaminophen ([place] 5/325) 2 tab PO Q4H PRN PRN Reason: Severe Pain (7-10) Al Hydroxide/Mg Hydroxide (Maalox) 30 ml PO Q4H PRN PRN Reason: Indigestion Albumin Human (Albumin 5%) 12.5 gm IVPB Q6H PRN PRN Reason: To Maintain SBP> 90 mmHG Stop: 11/08/19 14:12 Albumin Human (Albumin 5%) 25 gm IVPB Q6H PRN PRN Reason: To Maintain SBP > 90 mmHG Stop: 11/08/19 14:12 Last Admin: 11/07/19 15:57 Dose: 25 gm Albuterol/Ipratropium (Duoneb) 3 ml NEB [id number] [facility] Last Admin: 11/08/19 07:14 Dose: 3 ml Aspirin (Aspirin) 325 mg PO DAILY [facility] Last Admin: 11/08/19 08:45 Dose: 325 mg Atorvastatin Calcium (Lipitor) 20 mg PO HS [facility] Last Admin: 11/07/19 21:13 Dose: 20 mg Bisacodyl (Dulcolax) 10 mg PO Q12H PRN PRN Reason: Constipation Bisacodyl (Dulcolax) 10 mg [place] Q12H PRN PRN Reason: Constipation Famotidine (Pepcid) 20 mg SLOW IVP DAILY [facility] Last Admin: 11/08/19 08:46 Dose: 20 mg Fentanyl (Sublimaze) 25 mcg SLOW IVP Q2H PRN PRN Reason: Moderate Pain (4-6) Stop: 11/09/19 13:35 Last Admin: 11/07/19 19:51 Dose: 25 mcg Fentanyl (Sublimaze) 50 mcg SLOW IVP Q2H PRN PRN Reason: Severe Pain (7-10) Stop: 11/09/19 13:35 Guaifenesin/Dextromethorphan (Robitussin Dm) 15 ml PO Q4H PRN PRN Reason: Cough Hydralazine HCl (Apresoline) 10 mg SLOW IVP Q6H PRN PRN Reason: To Maintain SBP< 140mmHG Hetastarch/Sodium Chloride (Hespan) 500 mls @ 0 mls/hr IVPB PRN PRN PRN Reason: To Maintain SBP > 90mmHg Stop: 11/08/19 13:35 Norepinephrine Bitartrate (Levophed) 250 mls @ 0 mls/hr IVPB PRN PRN; Protocol PRN Reason: To maintain SBP > 90 mmHG Magnesium Sulfate 2 gm/ Device 50 mls @ 50 mls/hr IVPB QAM [facility] Stop: 11/09/19 09:59 Last Admin: 11/08/19 08:45 Dose: 50 mls Nitroglycerin/Dextrose (Nitroglycerin 50 Mg/250 Ml Bot) 250 mls @ 0 mls/hr IVPB PRN PRN; Protocol PRN Reason: To Maintain SBP< 140mmHG Phenylephrine HCl (Haris-Synephrine) 250 mls @ 0 mls/hr IVPB PRN PRN; Protocol PRN Reason: To maintain SBP > 90 mmHG Ketorolac Tromethamine (Toradol) 15 mg IVP Q6HR [facility] Stop: 11/10/19 18:01 Last Admin: 11/08/19 11:31 Dose: 15 mg Metoprolol Tartrate (Lopressor) 12.5 mg PO BID [facility] Morphine Sulfate (Morphine) 2 mg SLOW IVP Q15MIN PRN PRN Reason: Severe Pain (7-10) Last Admin: 11/07/19 14:49 Dose: 2 mg Ondansetron HCl (Zofran) 4 mg IVP Q6H PRN PRN Reason: Nausea/Vomiting Last Admin: 11/07/19 15:30 Dose: 4 mg Potassium Chloride (Kcl) 20 meq IVPB PRN PRN PRN Reason: K level </= 4.0 Last Admin: 11/08/19 04:11 Dose: 20 meq Sodium Chloride (Flush - Normal Saline) 10 ml IVF PRN PRN PRN Reason: Saline Flush Vital Signs & Weight: Vital Signs Temp Pulse Resp Pulse Ox 11/08/19 08:00 95 11/08/19 07:18 99 11/08/19 07:14 88 15 99 11/08/19 07:00 98.4 F 11/08/19 04:00 98.6 F 97 Weight 164 lb 0.383 oz - Physical Exam General: alert & oriented x3 HEENT: normocephaly Neck: supple neck Cardiac: regular rate and rhythm Lungs: normal breath sounds Neuro: grossly intact Abdomen: active bowel sounds Extremities: no edema Skin: clear Musculoskeletal: no pain - Labs Result Diagrams: 11/08/19 03:07 11/08/19 03:07 Troponin/CKMB CK-MB (CK-2) 2.7 ng/mL (0-6.6) 11/06/19 09:50 Troponin I 0.763 ng/mL (< 0.028) H* 11/06/19 17:17 - Telemetry Sinus rhythms and dysrhythmias: sinus rhythm - Assessment/Plan Assessment/Plan: 1. CAD. s/p CABG x 3 today. SVG-> OM1,OM3,RCA. Small vessels. 2. NSTEMI 3. DMII. 4. HTN 5. Hyperlipidemia. 6. Tobacco abuse. 7. Hx. of noncompliance. PLAN: - ASA/Statin for life - ACEI/ARB once BP allows - Continue low dose BB. - Increase PT as tolerated.
[2019-11-08] MEDS: Atorvastatin Calcium 20 MG TAB PO SCH (20:05)
[2019-11-08] MEDS: Metoprolol Tartrate 25 MG TAB PO SCH (20:06)
[2019-11-09] MEDS: HYDROcodone/Acetaminophen 5/325 mg Tablet PO PRN ×5 (00:29→23:28)
[2019-11-09] MEDS: Ketorolac Tromethamine 30 MG/ML VIAL IVP SCH ×2 (00:30→06:14)
[2019-11-09 04:58] LABS: #Basophils 0.1 thou/uL (0.0-0.2); #Eosinphils 0.1 thou/uL (0.0-0.7); #Lymphocytes 2.4 thou/uL (1.20-3.40); #Monocytes 0.9 thou/uL (0.11-0.59); #Neutrophils 8.1 thou/uL (1.40-6.50); %Basophils 0.5 % (0.0-1.0); %Eosinophils 0.8 % (0.0-10.0); %Lymphocytes 20.4 % (21.0-51.0); %Monocytes 7.7 % (0.0-10.0); %Neutrophils 70.6 % (42.0-75.0); Hemoglobin 8.6 g/dL (12.0-16.0); Mean Platelet Volume 7.6 fL (7.4-10.4); Platelet Count 163 thou/uL (130-400); RBC Distribution Width 16.5 % (11.5-14.5); White Blood Cell (WBC) Count 11.5 thou/uL (4.8-10.8)
[2019-11-09 05:06] LABS: Anion Gap 9 mmol/L (10-20); BUN (Urea Nitrogen) 10 mg/dL (7.0-18.7); Calc. Creatinine Clearance 120 mL/min (70-130); Calcium 8.2 mg/dL (7.8-10.44); Carbon Dioxide 23 mmol/L (22-29); Chloride 111 mmol/L (98-107); Estimated GFR-MDRD Greater than 90; Glucose 167 mg/dL (70-105); Potassium 4.3 mmol/L (3.5-5.1); Sodium 139 mmol/L (136-145)
--- NOTE | 2019-11-09 05:24 | PDOC.FM ---
- Subjective Subjective: Pt was up in bed conversive and eating this morning. She notes continued normal post operative chest wall pain. Is hopeful to have chest tube removed today. - Objective Vital Signs & Weight: Vital Signs (12 hours) Temp Pulse Ox 11/09/19 04:00 98.1 F 11/09/19 01:00 97 11/09/19 00:00 98.7 F 11/08/19 20:00 98.4 F 96 11/08/19 19:45 98 11/08/19 19:44 100 Weight Weight 74.4 kg Most Recent Monitor Data Heart Rate from ECG 89 NIBP 94/62 NIBP BP-Mean 72 Respiration from ECG 31 SpO2 96 I&O: 11/07/19 11/08/19 11/09/19 06:59 06:59 06:59 Intake Total 1240 1821.9 1549 Output Total 300 3440 2302 Balance 940 -1618.1 -753 Result Diagrams: 11/09/19 04:30 11/09/19 04:30 Phys Exam - Physical Examination Constitutional: NAD HEENT: moist MMs, sclera anicteric Neck: full ROM Poor excursion, mild basilar crackles, slightly tachypneic chest tube draining serous fluid Cardiovascular: RRR, no significant murmur, no rub Gastrointestinal: soft, non-tender Musculoskeletal: no edema, pulses present Neurological: moves all 4 limbs Psychiatric: normal affect, A&O x 3 Skin: no rash, normal turgor Deviation from normal: midline incision dressed, CDI Dx/Plan (1) Atypical chest pain Code(s): R07.89 - OTHER CHEST PAIN Status: Acute (2) NSTEMI (non-ST elevated myocardial infarction) Code(s): I21.4 - NON-ST ELEVATION (NSTEMI) MYOCARDIAL INFARCTION Status: Acute (3) Conversion disorder Code(s): F44.9 - DISSOCIATIVE AND CONVERSION DISORDER, UNSPECIFIED Status: Chronic (4) DM2 (diabetes mellitus, type 2) Status: Chronic (5) HTN (hypertension) Code(s): I10 - ESSENTIAL (PRIMARY) HYPERTENSION Status: Chronic (6) Migraines Code(s): G43.909 - MIGRAINE, UNSP, NOT INTRACTABLE, WITHOUT STATUS MIGRAINOSUS Status: Chronic (7) Normocytic anemia Code(s): D64.9 - ANEMIA, UNSPECIFIED Status: Chronic - Plan Plan: Patient is a 44F with PMHx of DM2, HTN, HLD, conversion disorder, migraines that is admitted for NSTEMI NSTEMI -POD #2 s/p 3 vessel CABG -cardiology, Dr. Guthrie, consulted; performed cath on patient 11/06 -cath: EF 50-55%, multi-vessel CAD with CABG recommended -echo: EF 30-35% -CV Surgery consulted, Dr. Peace, CABG w/ subsequent ICU admission, expect transfer to medical today -current perioperative management per CV surg -currently on low dose BB and statin, will need to add ACEi/ARB as BP allows - current MAP 72 Normocytic anemia -iron studies: iron low 18, TIBC wnl 440, transferrin wnl 352, ferritin low 9.85 -vit B 12 wnl 643 -folate pending -oral iron, further workup as outpt as indicated Hx of DM2, resolved -has not been on meds for >1 yr -reportedly used to take insulin -A1C 5.7, wnl and sugars WNL HTN -on no home meds -hydralazine IV prn, BID metoprolol HLD -triglycerides 184, total chol 220, LDL 149, HDL 34 -statin therapy initiated w/ atorvastatin 20 Conversion disorder/complex migraines -patient reports at times when she is stressed her limbs will grow weak, and will normalize -no reports of weakness at this time DVT ppx: SCDs Dispo: ICU inpatient for NSTEMI, s/p CABG. Routine post operative care. Expect transfer from ICU today per CV surg. Code: Full PCP: CC Addendum - Attending - Attending Attestation Date/Time: 11/09/19 1022 I personally evaluated the patient and discussed the management with Dr. Hernandez I agree with the History, Examination, Assessment and Plan documented above with any addition or exceptions noted below. POD#2 s/p OHS progressing well OOB advance per Surgery.
--- NOTE | 2019-11-09 08:36 | RAD ---
Exam: Chest one view HISTORY:Status post open heart surgery Comparison: 09/17/2020 FINDINGS: Lines and tubes: Stable sternotomy wires, 2 separate mediastinal venous catheter and a right-sided ce ntral venous catheter. Cardiac silhouette:Upper normal Aorta: Unremarkable Pulmonary vessels: Normal Costophrenic angles: Small left-sided pleural effusion is suspected. LUNGS: Left lower lobe consolidation with air bronchograms suspected. Pneumothorax: None Osseous abnormalities: None IMPRESSION: Pleural and parenchymal changes in the left lung base.
[2019-11-09] MEDS: Aspirin 325 MG TAB PO SCH (09:20)
[2019-11-09] MEDS: Famotidine/PF 20 mg/2ml Vial SLOW IVP SCH (09:20)
[2019-11-09] MEDS: Metoprolol Tartrate 25 MG TAB PO SCH ×3 (09:23→20:56)
[2019-11-09] MEDS: Magnesium 2 GM/50 ML 2 GM in Premix Bag 1 BAG IVPB SCH (09:23)
[2019-11-09] MEDS ORDERED: Mag-Al 1200 mg/1200 mg/30 ML UDCUP PO PRN (11:34)
[2019-11-09] MEDS ORDERED: Nitroglycerin 0.4 MG TAB (25 Tab Bottle) SL PRN (11:34)
[2019-11-09] MEDS ORDERED: Mineral Oil ENEMA PR PRN (11:34)
[2019-11-09] MEDS ORDERED: Insulin Regular 300 UNITS/3 ML VIAL SC PRN (11:49)
[2019-11-09] MEDS ORDERED: Dextrose 50% Abboject 50 ML SYRINGE SLOW IVP PRN (11:49)
[2019-11-09] MEDS ORDERED: Dextrose 5% in Water 1,000 ML IV PRN (11:49)
--- NOTE | 2019-11-09 13:30 | PDOC.CPN ---
- Subjective Date: 11/09/19 Time: 13:29 Interval history: She is doing better. chest tubes are out. Passing gas but no BM yet. - Review of Systems General: denies: fever/chills, weight/appetite/sleep changes, night sweats, fatigue Respiratory: reports: cough. denies: congestion, shortness of breath, exercise intolerance Cardiovascular: denies: chest pain, palpitation, edema, paroxysmal nocturnal dyspnea, orthopnea Gastrointestinal: denies: nausea, vomiting, diarrhea, constipation, abd pain, GI bleeding Musculoskeletal: reports: pain. denies: tenderness, stiffness, swelling, arthritis/arthralgias Neurological: denies: numbness, syncope, seizure, weakness - Objective Allergies/Adverse Reactions: Allergies Allergy/AdvReac Type Severity Reaction Status Date / Time No Known Allergies Allergy Verified 11/06/19 12:48 Visit Medications: Current Medications Acetaminophen (Tylenol) 650 mg PO Q6H PRN PRN Reason: Headache/Fever Or Mild Pain Hydrocodone Bitart/Acetaminophen ([place] 5/325) 1 tab PO Q4H PRN PRN Reason: Moderate Pain (4-6) Last Admin: 11/09/19 09:24 Dose: 1 tab Hydrocodone Bitart/Acetaminophen ([place] 5/325) 2 tab PO Q4H PRN PRN Reason: Severe Pain (7-10) Last Admin: 11/08/19 20:06 Dose: 2 tab Al Hydroxide/Mg Hydroxide (Maalox) 30 ml PO Q4H PRN PRN Reason: Indigestion Al Hydroxide/Mg Hydroxide (Maalox) 30 ml PO Q4H PRN PRN Reason: Indigestion Albuterol/Ipratropium (Duoneb) 3 ml NEB [id number] PRN PRN Reason: Respiratory Distress Aspirin (Aspirin) 325 mg PO DAILY [facility] Last Admin: 11/09/19 09:20 Dose: 325 mg Atorvastatin Calcium (Lipitor) 20 mg PO HS [facility] Last Admin: 11/08/19 20:05 Dose: 20 mg Bisacodyl (Dulcolax) 10 mg PO Q12H PRN PRN Reason: Constipation Bisacodyl (Dulcolax) 10 mg [place] Q12H PRN PRN Reason: Constipation Dextrose/Water (Dextrose 50%) 25 gm SLOW IVP PRN PRN PRN Reason: PER HYPOGLYCEMIC PROTOCOL Famotidine (Pepcid) 20 mg SLOW IVP DAILY [facility] Last Admin: 11/09/19 09:20 Dose: 20 mg Famotidine (Pepcid) 20 mg PO BID [facility] Fentanyl (Sublimaze) 25 mcg SLOW IVP Q2H PRN PRN Reason: Moderate Pain (4-6) Stop: 11/09/19 13:35 Last Admin: 11/07/19 19:51 Dose: 25 mcg Fentanyl (Sublimaze) 50 mcg SLOW IVP Q2H PRN PRN Reason: Severe Pain (7-10) Stop: 11/09/19 13:35 Furosemide (Lasix) 40 mg PO DAILY [facility] Glucagon (Glucagon) 1 mg SC PRN PRN PRN Reason: PER HYPOGLYCEMIC PROTOCOL Guaifenesin/Dextromethorphan (Robitussin Dm) 15 ml PO Q4H PRN PRN Reason: Cough Dextrose/Water (D5w) 1,000 mls @ 0 mls/hr IV INF PRN PRN Reason: PRN HYPOGLYCEMIC PROTOCOL Insulin Human Regular (Humulin R) 0 units SC Q4H PRN; Protocol PRN Reason: POST OP SLIDING SCALE Metoprolol Tartrate (Lopressor) 12.5 mg PO BID [facility] Last Admin: 11/09/19 09:23 Dose: 12.5 mg Mineral Oil (Fleet Mineral Oil) 133 ml ME DAILYPRN PRN PRN Reason: Constipation Nitroglycerin (Nitrostat) 0.4 mg SL Q5MIN PRN PRN Reason: Chest Pain Potassium Chloride (Klor-Con 10) 10 meq PO QAM-[facility] Sodium Chloride (Flush - Normal Saline) 10 ml IVF PRN PRN PRN Reason: Saline Flush Vital Signs & Weight: Vital Signs Temp Pulse Pulse Pulse Resp BP BP 11/09/19 12:00 98.6 F 11/09/19 11:03 90 103 H 104/70 104/68 11/09/19 08:56 103 H 108 H 104/68 121/77 11/09/19 08:06 11/09/19 08:04 95 27 H 11/09/19 08:00 98.3 F 11/09/19 04:00 98.1 F BP Pulse Ox Pulse Ox Pulse Ox 11/09/19 12:00 104/70 99 11/09/19 11:03 97 95 11/09/19 08:56 95 80 L 11/09/19 08:06 98 11/09/19 08:04 98 11/09/19 08:00 99 11/09/19 04:00 Weight 163 lb 12.855 oz - Physical Exam General: alert & oriented x3 HEENT: mucus membranes moist, normocephaly Neck: supple neck Cardiac: regular rate and rhythm, no murmur Lungs: clear to auscultation Neuro: grossly intact Abdomen: active bowel sounds Extremities: no edema Skin: clear Musculoskeletal: no pain - Labs Result Diagrams: 11/09/19 04:30 11/09/19 04:30 Troponin/CKMB CK-MB (CK-2) 2.7 ng/mL (0-6.6) 11/06/19 09:50 Troponin I 0.763 ng/mL (< 0.028) H* 11/06/19 17:17 - Telemetry Sinus rhythms and dysrhythmias: sinus rhythm - Assessment/Plan Assessment/Plan: 1. CAD. s/p CABG x 3 today. SVG-> OM1,OM3,RCA. Small vessels. 2. NSTEMI 3. DMII. 4. HTN 5. Hyperlipidemia. 6. Tobacco abuse. 7. Hx. of noncompliance. PLAN: - ASA/Statin for life - ACEI/ARB once BP allows, still borderline low. - Continue low dose BB. - Increase PT as tolerated.
[2019-11-09] MEDS ORDERED: Ondansetron PF 4 MG/2 ML Vial IVP PRN (20:31)
[2019-11-09] MEDS: Famotidine 20 MG TAB PO SCH (20:48)
[2019-11-09] MEDS: Atorvastatin Calcium 20 MG TAB PO SCH (20:48)
[2019-11-10] MEDS: HYDROcodone/Acetaminophen 5/325 mg Tablet PO PRN ×3 (04:27→19:58)
--- NOTE | 2019-11-10 06:13 | PDOC.FM ---
- Subjective Subjective: Pt's only complaint this morning is continued post operative chest wall pain. She notes some localized swelling to the superior aspect of her midline incision. Continues to work with pt/ot. Tolerating diet. - Objective Vital Signs & Weight: Vital Signs (12 hours) Temp Pulse Resp BP Pulse Ox 11/10/19 04:00 97.9 F 91 16 96/63 93 L 11/09/19 20:00 99.1 F 95 18 105/66 93 L Weight Weight 74.389 kg Most Recent Monitor Data Heart Rate from ECG 92 NIBP 104/70 NIBP BP-Mean 81 Respiration from ECG 23 SpO2 99 I&O: 11/08/19 11/09/19 11/10/19 06:59 06:59 06:59 Intake Total 1821.9 1669 1320 Output Total 3440 2352 500 Balance -1618.1 -683 820 Result Diagrams: 11/09/19 04:30 11/09/19 04:30 Phys Exam - Physical Examination Constitutional: NAD HEENT: moist MMs, sclera anicteric Neck: supple, full ROM short inspiration, CTA Cardiovascular: RRR, no significant murmur Superior chest wall along incision has localized area of swelling incision CDI, no erythema, appropriately tender to palpation Gastrointestinal: soft, non-tender Musculoskeletal: no edema, pulses present Neurological: moves all 4 limbs Psychiatric: normal affect, A&O x 3 Skin: no rash, cap refill <2 seconds Dx/Plan (1) Atypical chest pain Code(s): R07.89 - OTHER CHEST PAIN Status: Acute (2) NSTEMI (non-ST elevated myocardial infarction) Code(s): I21.4 - NON-ST ELEVATION (NSTEMI) MYOCARDIAL INFARCTION Status: Acute (3) Conversion disorder Code(s): F44.9 - DISSOCIATIVE AND CONVERSION DISORDER, UNSPECIFIED Status: Chronic (4) DM2 (diabetes mellitus, type 2) Status: Chronic (5) HTN (hypertension) Code(s): I10 - ESSENTIAL (PRIMARY) HYPERTENSION Status: Chronic (6) Migraines Code(s): G43.909 - MIGRAINE, UNSP, NOT INTRACTABLE, WITHOUT STATUS MIGRAINOSUS Status: Chronic (7) Normocytic anemia Code(s): D64.9 - ANEMIA, UNSPECIFIED Status: Chronic - Plan Plan: NSTEMI -POD #3 s/p 3 vessel CABG -working well with PT/OT -currently on low dose BB and statin, will need to add ACEi/ARB as BP allows -cardiology adding 40 lasix daily Normocytic anemia -iron studies: iron low 18, TIBC wnl 440, transferrin wnl 352, ferritin low 9.85 -vit B 12 wnl 643 -oral iron, further workup as outpt as indicated Hx of DM2, resolved -has not been on meds for >1 yr -reportedly used to take insulin -A1C 5.7, wnl and sugars WNL HTN -on no home meds -hydralazine IV prn, BID metoprolol HLD -triglycerides 184, total chol 220, LDL 149, HDL 34 -statin therapy initiated w/ atorvastatin 20 Conversion disorder/complex migraines -patient reports at times when she is stressed her limbs will grow weak, and will normalize -no reports of weakness at this time DVT ppx: SCDs Dispo: Tele inpatient for NSTEMI, s/p CABG. Routine post operative care. Code: Full PCP: CC Addendum - Attending - Attending Attestation Date/Time: 11/10/192024 I personally evaluated the patient and discussed the management with Dr. Hernandez I agree with the History, Examination, Assessment and Plan documented above with any addition or exceptions noted below.
--- NOTE | 2019-11-10 08:24 | PDOC.CPN ---
- Subjective Date: 11/10/19 Time: 08:27 Interval history: The pt seen and examined. No overnight events. No cardiac complaints - Objective Allergies/Adverse Reactions: Allergies Allergy/AdvReac Type Severity Reaction Status Date / Time No Known Allergies Allergy Verified 11/06/19 12:48 Visit Medications: Current Medications Acetaminophen (Tylenol) 650 mg PO Q6H PRN PRN Reason: Headache/Fever Or Mild Pain Hydrocodone Bitart/Acetaminophen (Gray 5/325) 1 tab PO Q4H PRN PRN Reason: Moderate Pain (4-6) Last Admin: 11/10/19 04:27 Dose: 1 tab Hydrocodone Bitart/Acetaminophen (Gray 5/325) 2 tab PO Q4H PRN PRN Reason: Severe Pain (7-10) Last Admin: 11/09/19 14:40 Dose: 2 tab Al Hydroxide/Mg Hydroxide (Maalox) 30 ml PO Q4H PRN PRN Reason: Indigestion Al Hydroxide/Mg Hydroxide (Maalox) 30 ml PO Q4H PRN PRN Reason: Indigestion Albuterol/Ipratropium (Duoneb) 3 ml NEB [id number] PRN PRN Reason: Respiratory Distress Aspirin (Aspirin) 325 mg PO DAILY [facility] Last Admin: 11/09/19 09:20 Dose: 325 mg Atorvastatin Calcium (Lipitor) 20 mg PO HS [facility] Last Admin: 11/09/19 20:48 Dose: 20 mg Bisacodyl (Dulcolax) 10 mg PO Q12H PRN PRN Reason: Constipation Last Admin: 11/09/19 14:44 Dose: 10 mg Bisacodyl (Dulcolax) 10 mg AR Q12H PRN PRN Reason: Constipation Dextrose/Water (Dextrose 50%) 25 gm SLOW IVP PRN PRN PRN Reason: PER HYPOGLYCEMIC PROTOCOL Famotidine (Pepcid) 20 mg PO BID [facility] Last Admin: 11/09/19 20:48 Dose: 20 mg Furosemide (Lasix) 40 mg PO DAILY [facility] Glucagon (Glucagon) 1 mg SC PRN PRN PRN Reason: PER HYPOGLYCEMIC PROTOCOL Guaifenesin/Dextromethorphan (Robitussin Dm) 15 ml PO Q4H PRN PRN Reason: Cough Dextrose/Water (D5w) 1,000 mls @ 0 mls/hr IV INF PRN PRN Reason: PRN HYPOGLYCEMIC PROTOCOL Insulin Human Regular (Humulin R) 0 units SC Q4H PRN; Protocol PRN Reason: POST OP SLIDING SCALE Metoprolol Tartrate (Lopressor) 12.5 mg PO BID [facility] Last Admin: 11/09/19 20:56 Dose: 12.5 mg Mineral Oil (Fleet Mineral Oil) 133 ml AR DAILYPRN PRN PRN Reason: Constipation Nitroglycerin (Nitrostat) 0.4 mg SL Q5MIN PRN PRN Reason: Chest Pain Ondansetron HCl (Zofran) 4 mg IVP Q6H PRN PRN Reason: Nausea/Vomiting Last Admin: 11/09/19 20:48 Dose: 4 mg Pantoprazole Sodium (Protonix) 40 mg PO DAILY [facility] Potassium Chloride (Klor-Con 10) 10 meq PO QAM-WM [facility] Sodium Chloride (Flush - Normal Saline) 10 ml IVF PRN PRN PRN Reason: Saline Flush Vital Signs & Weight: Vital Signs Temp Pulse Resp BP Pulse Ox 11/10/19 07:56 98.5 F 92 18 113/67 93 L 11/10/19 04:00 97.9 F 91 16 96/63 93 L Weight 164 lb - Physical Exam General: alert & oriented x3 HEENT: mucus membranes moist Neck: supple neck Cardiac: regular rate and rhythm, S1/S2 Lungs: clear to auscultation Extremities: no edema Musculoskeletal: decreased range of motion - Labs Result Diagrams: 11/09/19 04:30 11/09/19 04:30 Troponin/CKMB CK-MB (CK-2) 2.7 ng/mL (0-6.6) 11/06/19 09:50 Troponin I 0.763 ng/mL (< 0.028) H* 11/06/19 17:17 - Telemetry Sinus rhythms and dysrhythmias: sinus rhythm - Assessment/Plan Assessment/Plan: 1. CAD with s/p CABG x 3 on 11/07/2019 with RSVG-> OM1, OM3, and RCA. Small vessels; On Metoprolol, ASA, and Lipitor; Lasix 40mg qd will be started from today 2. HTN - stable 3. HLD - on Statin 4. DM type 2 with hgbA1c on 11/07/2019 was 5.7 5. Tobacco abuse - The pt is willing to start smoking cessation 6. Hx of noncompliance - The pt stated she will f/u with her PCP at least ( since she does not have insurance at this moment) MAR reviewed pt. seen and eval. by me. I agree withthe A/P by the [employer]. She is ambulating with PT. Chest clear. RRR.
[2019-11-10] MEDS: Furosemide 40 MG TAB PO SCH (08:29)
[2019-11-10] MEDS: Famotidine 20 MG TAB PO SCH ×2 (08:29→19:55)
[2019-11-10] MEDS: Potassium Chloride 10 MEQ TAB PO SCH (08:29)
[2019-11-10] MEDS: Aspirin 325 MG TAB PO SCH (08:29)
[2019-11-10] MEDS: Metoprolol Tartrate 25 MG TAB PO SCH ×2 (08:29→19:55)
[2019-11-10 15:09] LABS: Hematocrit 29.5 % (34.0-46.6); RBC Folate Test Component 1237 ng/mL (>498)
[2019-11-10] MEDS: Atorvastatin Calcium 20 MG TAB PO SCH (19:55)
[2019-11-11 03:47] VITALS: TEMP 98.4
--- NOTE | 2019-11-11 05:45 | PDOC.FM ---
- Subjective Subjective: Pt continues to progress well daily. Notes that her breathing feels better and she is getting around well working with PT. Denies any cough, fever, SOB, or new edema. Incisions are all healing well. - Objective Vital Signs & Weight: Vital Signs (12 hours) Temp Pulse Resp BP BP Pulse Ox 11/11/19 03:44 98.4 F 82 18 93/50 L 96 11/10/19 20:00 98.6 F 88 16 109/66 97 Weight Weight 73.057 kg Most Recent Monitor Data Heart Rate from ECG 92 NIBP 104/70 NIBP BP-Mean 81 Respiration from ECG 23 SpO2 99 I&O: 11/09/19 11/10/19 11/11/19 06:59 06:59 06:59 Intake Total 1669 1320 600 Output Total 2352 500 Balance -683 820 600 Result Diagrams: 11/09/19 04:30 11/09/19 04:30 Phys Exam - Physical Examination Constitutional: NAD HEENT: moist MMs, sclera anicteric Neck: full ROM Respiratory: no wheezing, no rales, no rhonchi Short inspiration, good air movement Cardiovascular: RRR, no significant murmur Gastrointestinal: soft, non-tender Musculoskeletal: no edema, pulses present Neurological: moves all 4 limbs Psychiatric: normal affect, A&O x 3 Skin: cap refill <2 seconds Deviation from normal: Sternotomy and LE incisions are all CDI, no signs of infection Dx/Plan (1) Atypical chest pain Code(s): R07.89 - OTHER CHEST PAIN Status: Acute (2) NSTEMI (non-ST elevated myocardial infarction) Code(s): I21.4 - NON-ST ELEVATION (NSTEMI) MYOCARDIAL INFARCTION Status: Acute (3) Conversion disorder Code(s): F44.9 - DISSOCIATIVE AND CONVERSION DISORDER, UNSPECIFIED Status: Chronic (4) DM2 (diabetes mellitus, type 2) Status: Chronic (5) HTN (hypertension) Code(s): I10 - ESSENTIAL (PRIMARY) HYPERTENSION Status: Chronic (6) Migraines Code(s): G43.909 - MIGRAINE, UNSP, NOT INTRACTABLE, WITHOUT STATUS MIGRAINOSUS Status: Chronic (7) Normocytic anemia Code(s): D64.9 - ANEMIA, UNSPECIFIED Status: Chronic - Plan Plan: NSTEMI -POD #4 s/p 3 vessel CABG -currently on low dose BB and statin, as BP's have remained soft throughout admission, will need to f/u w/ PCP and cards for addition of ACEi as pressures allow -cardiology added 40 lasix daily -per CV surg likely discharge later today Normocytic anemia -oral iron, further workup as outpt as indicated outside post operative period Hx of DM2, resolved -A1C 5.7, wnl and sugars WNL -has required no sliding scale HTN -BID metoprolol -Addition of ACEi as an outpt as pressures allow HLD -statin therapy initiated w/ atorvastatin 20 Conversion disorder/complex migraines -patient reports at times when she is stressed her limbs will grow weak, and will normalize -no reports of weakness at this time DVT ppx: SCDs Dispo: Tele inpatient for NSTEMI, s/p CABG. Expect DC later today per CV surg. Code: Full PCP: CC Addendum - Attending - Attending Attestation Date/Time: 11/11/19 2246 I personally evaluated the patient and discussed the management with Dr. musa I agree with the History, Examination, Assessment and Plan documented above with any addition or exceptions noted below. Patient has been discharged by CV surgery. Has outpatient follow up arrange over the next month.
[2019-11-11] MEDS: HYDROcodone/Acetaminophen 5/325 mg Tablet PO PRN ×2 (06:11→10:20)
--- NOTE | 2019-11-11 06:28 | DIS ---
DATE OF ADMISSION: 11/06/2019 DATE OF DISCHARGE: 11/11/2019 DIAGNOSES: 1. Coronary artery disease. 2. Diabetes mellitus. 3. Hypertension. 4. Dyslipidemia. PROCEDURES: 1. Cardiac catheterization. 2. Coronary artery bypass grafting x3. a. Reverse saphenous vein to distal right coronary. b. Reverse saphenous vein to OM1. c. Reverse saphenous vein to OM3. DESCRIPTION OF HOSPITAL STAY: Ms. Crockett was admitted to the hospital with chest pain. At admission through the emergency department, her troponins were elevated. She underwent cardiac catheterization revealing severe OM and right coronary artery disease. She was taken to the operating room the following day and underwent coronary artery bypass grafting as above. She had minimal LAD disease. Therefore, her LAD was not addressed. Postoperatively, she has had no rhythm disturbances. At the time of discharge, she is ambulatory, tolerating regular diet, having good bowel and bladder function. Incisions are clean, dry without evidence of infection. Discharge medications were noted. Followup is with in [address] Guthrie in a month. Job ID: [id number]
[2019-11-11] MEDS: Potassium Chloride 10 MEQ TAB PO SCH (08:07)
[2019-11-11] MEDS: Metoprolol Tartrate 25 MG TAB PO SCH (08:07)
[2019-11-11] MEDS: Aspirin 325 MG TAB PO SCH (08:07)
[2019-11-11] MEDS: Furosemide 40 MG TAB PO SCH (08:08)
[2019-11-11] MEDS: Famotidine 20 MG TAB PO SCH (08:08)
[2019-11-11 08:13] VITALS: BP 101/61
--- NOTE | 2019-11-11 10:38 | PDOC.CPN ---
- Subjective Date: 11/11/19 Time: 10:00 - Review of Systems General: reports: fever/chills Respiratory: reports: congestion, shortness of breath Cardiovascular: reports: chest pain, palpitation, edema, orthopnea Gastrointestinal: reports: nausea, constipation Musculoskeletal: reports: pain, stiffness, swelling Neurological: reports: weakness - Objective Allergies/Adverse Reactions: Allergies Allergy/AdvReac Type Severity Reaction Status Date / Time No Known Allergies Allergy Verified 11/06/19 12:48 Visit Medications: Current Medications Acetaminophen (Tylenol) 650 mg PO Q6H PRN PRN Reason: Headache/Fever Or Mild Pain Hydrocodone Bitart/Acetaminophen ([place] 5/325) 1 tab PO Q4H PRN PRN Reason: Moderate Pain (4-6) Last Admin: 11/10/19 04:27 Dose: 1 tab Hydrocodone Bitart/Acetaminophen (Dix 5/325) 2 tab PO Q4H PRN PRN Reason: Severe Pain (7-10) Last Admin: 11/11/19 10:20 Dose: 2 tab Al Hydroxide/Mg Hydroxide (Maalox) 30 ml PO Q4H PRN PRN Reason: Indigestion Al Hydroxide/Mg Hydroxide (Maalox) 30 ml PO Q4H PRN PRN Reason: Indigestion Albuterol/Ipratropium (Duoneb) 3 ml NEB [id number] PRN PRN Reason: Respiratory Distress Aspirin (Aspirin) 325 mg PO DAILY [facility] Last Admin: 11/11/19 08:07 Dose: 325 mg Atorvastatin Calcium (Lipitor) 20 mg PO HS [facility] Last Admin: 11/10/19 19:55 Dose: 20 mg Bisacodyl (Dulcolax) 10 mg PO Q12H PRN PRN Reason: Constipation Last Admin: 11/09/19 14:44 Dose: 10 mg Bisacodyl (Dulcolax) 10 mg PA Q12H PRN PRN Reason: Constipation Dextrose/Water (Dextrose 50%) 25 gm SLOW IVP PRN PRN PRN Reason: PER HYPOGLYCEMIC PROTOCOL Famotidine (Pepcid) 20 mg PO BID [facility] Last Admin: 11/11/19 08:08 Dose: 20 mg Furosemide (Lasix) 40 mg PO DAILY [facility] Last Admin: 11/11/19 08:08 Dose: 40 mg Glucagon (Glucagon) 1 mg SC PRN PRN PRN Reason: PER HYPOGLYCEMIC PROTOCOL Guaifenesin/Dextromethorphan (Robitussin Dm) 15 ml PO Q4H PRN PRN Reason: Cough Dextrose/Water (D5w) 1,000 mls @ 0 mls/hr IV INF PRN PRN Reason: PRN HYPOGLYCEMIC PROTOCOL Insulin Human Regular (Humulin R) 0 units SC Q4H PRN; Protocol PRN Reason: POST OP SLIDING SCALE Metoprolol Tartrate (Lopressor) 12.5 mg PO BID [facility] Last Admin: 11/11/19 08:07 Dose: 12.5 mg Mineral Oil (Fleet Mineral Oil) 133 ml PA DAILYPRN PRN PRN Reason: Constipation Nitroglycerin (Nitrostat) 0.4 mg SL Q5MIN PRN PRN Reason: Chest Pain Ondansetron HCl (Zofran) 4 mg IVP Q6H PRN PRN Reason: Nausea/Vomiting Last Admin: 11/09/19 20:48 Dose: 4 mg Pantoprazole Sodium (Protonix) 40 mg PO DAILY [facility] Last Admin: 11/11/19 08:08 Dose: 40 mg Potassium Chloride (Klor-Con 10) 10 meq PO QAM-WM [facility] Last Admin: 11/11/19 08:07 Dose: 10 meq Sodium Chloride (Flush - Normal Saline) 10 ml IVF PRN PRN PRN Reason: Saline Flush Vital Signs & Weight: Vital Signs Temp Pulse Resp BP BP Pulse Ox 11/11/19 08:00 98.4 F 84 18 101/61 92 L 11/11/19 03:44 98.4 F 82 18 93/50 L 96 Weight 161 lb 1 oz - Quality Measures CV meds: Beta Tita: Yes, SHIRA/ARB: No (hypotensive.), Statin: Yes, ASA: Yes - Physical Exam General: alert & oriented x3 HEENT: normocephaly Neck: no JVD/HJR, no lymphadenopathy Cardiac: regular rate and rhythm, no murmur Lungs: clear to auscultation, normal exam Neuro: grossly intact Abdomen: unremarkable Extremities: no cyanosis, no clubbing, no edema, other: (incisions dry.) Musculoskeletal: normal range of motion - Labs Result Diagrams: 11/09/19 04:30 11/09/19 04:30 Troponin/CKMB CK-MB (CK-2) 2.7 ng/mL (0-6.6) 11/06/19 09:50 Troponin I 0.763 ng/mL (< 0.028) H* 11/06/19 17:17 - Telemetry Sinus rhythms and dysrhythmias: sinus rhythm - Assessment/Plan Assessment/Plan: 1. CAD with s/p CABG x 3 on 11/07/2019 with RSVG-> OM1, OM3, and RCA. Small vessels; On Metoprolol, ASA, and Lipitor; Will do outpt. rehab. 2. HTN - stable 3. HLD - on Statin 4. DM type 2 with hgbA1c on 11/07/2019 was 5.7 5. Tobacco abuse - The pt is willing to start smoking cessation 6. Hx of noncompliance - The pt stated she will f/u with her PCP at least ( since she does not have insurance at this moment) 7. Post -op anemia. follow up as an outpt. MAR reviewed Pt. ready for d/c. follow up with me in 1 month.
--- NOTE | 2019-11-12 17:40 | EKG ---
Test Reason : Blood Pressure : / mmHG Vent. Rate : 082 BPM Atrial Rate : 082 BPM P-R Int : 148 ms QRS Dur : 082 ms QT Int : 386 ms P-R-T Axes : 068 063 042 degrees QTc Int : 450 ms Normal sinus rhythm Normal ECG When compared with ECG of 06-NOV-2019 05:37, (Unconfirmed) No significant change was found Confirmed by DR. Tunde BROWER ([id number]) on 11/12/2019 5:40:26 PM Referred By: GREGG [email or web address] Confirmed By:DR. Tunde BROWER
--- NOTE | 2019-11-12 17:44 | EKG ---
Test Reason : POST CABG Blood Pressure : / mmHG Vent. Rate : 091 BPM Atrial Rate : 091 BPM P-R Int : 146 ms QRS Dur : 090 ms QT Int : 414 ms P-R-T Axes : 074 080 085 degrees QTc Int : 509 ms Normal sinus rhythm Nonspecific T wave abnormality Prolonged QT Abnormal ECG When compared with ECG of 06-NOV-2019 15:08, (Unconfirmed) Nonspecific T wave abnormality now evident in Lateral leads QT has lengthened Confirmed by DR. Tunde BROWER ([id number]) on 11/12/2019 5:44:16 PM Referred By: James ALBARRAN Confirmed By:DR. Tunde BROWER
== END 2019-11-11 11:00 | disposition home or self-care (01) | DRG 234 ==
LOC: ERS 05:30 → 2SW 12:22 → OBSVTOIN 12:22 → CCU 11-07 10:24 → 2NO 11-09 13:13
PROVIDERS: ADMIT Family Medicine; ATTEND Family Medicine
PROC: 4A023N7 Measurement of Cardiac Sampling and Pressure, Left Heart, Percutaneous Approach (ICD-10-PCS; 2019-11-06)
PROC: B2111ZZ Fluoroscopy of Multiple Coronary Arteries using Low Osmolar Contrast (ICD-10-PCS; 2019-11-06)
PROC: B2151ZZ Fluoroscopy of Left Heart using Low Osmolar Contrast (ICD-10-PCS; 2019-11-06)
PROC: 021209W Bypass Coronary Artery, Three Arteries from Aorta with Autologous Venous Tissue, Open Approach (ICD-10-PCS; principal; 2019-11-07)
PROC: 06BQ4ZZ Excision of Left Saphenous Vein, Percutaneous Endoscopic Approach (ICD-10-PCS; 2019-11-07)
PROC: 5A1221Z Performance of Cardiac Output, Continuous (ICD-10-PCS; 2019-11-07)
DX: I21.4 Non-ST elevation (NSTEMI) myocardial infarction (principal); I25.10 Atherosclerotic heart disease of native coronary artery without angina pectoris; E11.9 Type 2 diabetes mellitus without complications; G43.909 Migraine, unspecified, not intractable, without status migrainosus; E78.5 Hyperlipidemia, unspecified; F17.210 Nicotine dependence, cigarettes, uncomplicated; F44.9 Dissociative and conversion disorder, unspecified; D64.9 Anemia, unspecified; Z79.4 Long term (current) use of insulin; Z79.82 Long term (current) use of aspirin; Z79.84 Long term (current) use of oral hypoglycemic drugs; Z91.14 Patient's other noncompliance with medication regimen
CPT/HCPCS: 36415; 36416; 36430; 71045; 80048; 80053; 80061; 82553; 82607; 82728; 82747; 82805; 83036; 83540; 83550; 83880; 84443; 84466; 84484; 84703; 85014; 85025; 85379; 85610; 85730; 86850; 86900; 86901; 93005; 93010; 93306; 93458; 93798; 94002; 94150; 94640; 96361; 96372; 96374; C1769; J0171; J0360; J0690; J1100; J1642; J1644; J1650; J1815; J1885; J2001; J2250; J2270; J2405; J2440; J2704; J2720; J3010; J3370; J3475; J3480; J3490; J7620; P9016; P9045; Q9967; S0017; S0020; S0028

== ENCOUNTER 2019-11-23 08:53 | Emergency (ER) | payer OTHER, SELFPAY ==
[2019-11-23] MEDS ORDERED: Aspirin Chewable 81 MG TAB ONE (09:31)
--- NOTE | 2019-11-23 09:40 | RAD ---
Portable chest: HISTORY: Left shoulder pain. Status post CABG procedure. COMPARISON: 11/09/2019 FINDINGS:Linear atelectasis and/or infiltrate in the left lung base. Linear atelectasis in the right mid lung field extending from the infrahilar region. Lung ugarte otherwise well aerated and clear. Postop sternotomy change. IMPRESSION:Linear atelectasis and/or infiltrate in the left lung base is prominent. Recommend follow- up.
[2019-11-23 10:19] LABS: CKMB 0.6 ng/mL (0-6.6)
[2019-11-23] MEDS ORDERED: Morphine 4 MG/ML VIAL ONE (11:09)
[2019-11-23] MEDS ORDERED: Ondansetron PF 4 MG/2 ML Vial ONE (11:09)
[2019-11-23 11:20] LABS: #Basophils 0.1 thou/uL (0.0-0.2); #Eosinphils 0.8 thou/uL (0.0-0.7); #Lymphocytes 2.1 thou/uL (1.20-3.40); #Monocytes 0.6 thou/uL (0.11-0.59); #Neutrophils 4.9 thou/uL (1.40-6.50); %Basophils 0.7 % (0.0-1.0); %Eosinophils 9.2 % (0.0-10.0); %Lymphocytes 25.1 % (21.0-51.0); %Neutrophils 58.1 % (42.0-75.0); Hemoglobin 10.5 g/dL (12.0-16.0); Mean Corpuscular HGB CONC 31.7 g/dL (32.0-36.0); Mean Corpuscular Hemoglobin 27.3 pg (27.0-31.0); Mean Corpuscular Volume 86.1 fL (78.0-98.0); Platelet Count 452 thou/uL (130-400); RBC Distribution Width 16.4 % (11.5-14.5); Red Blood Cell (RBC) Count 3.86 mill/uL (4.20-5.40); White Blood Cell (WBC) Count 8.4 thou/uL (4.8-10.8)
[2019-11-23 11:46] LABS: Carbon Dioxide 14 mmol/L (22-29); Chloride 112 mmol/L (98-107); Potassium 5.1 mmol/L (3.5-5.1); Sodium 139 mmol/L (136-145)
[2019-11-23 11:47] LABS: ALT (SGPT) 7 U/L (8-55); AST (SGOT) 15 U/L (5-34); Albumin 3.8 g/dL (3.5-5.0); Alkaline Phosphatase 86 U/L (40-110); Anion Gap 18 mmol/L (10-20); BUN (Urea Nitrogen) 11 mg/dL (7.0-18.7); Bilirubin, Total 0.4 mg/dL (0.2-1.2); Calc. Creatinine Clearance 0 mL/min (70-130); Calcium 9.1 mg/dL (7.8-10.44); Estimated GFR-MDRD Greater than 90; Globulin 3.4 g/dL (2.4-3.5); Glucose 129 mg/dL (70-105); Protein, Total 7.2 g/dL (6.0-8.3)
== END 2019-11-23 12:40 | disposition home or self-care (01) ==
LOC: ERS 08:53
DX: M25.512 Pain in left shoulder (principal); M62.830 Muscle spasm of back; E11.9 Type 2 diabetes mellitus without complications; I10 Essential (primary) hypertension; E78.5 Hyperlipidemia, unspecified; E78.00 Pure hypercholesterolemia, unspecified; G51.0 Bell's palsy; G43.909 Migraine, unspecified, not intractable, without status migrainosus; F17.210 Nicotine dependence, cigarettes, uncomplicated; Z79.899 Other long term (current) drug therapy; Z79.82 Long term (current) use of aspirin; Z79.891 Long term (current) use of opiate analgesic
CPT/HCPCS: 36415; 36416; 71045; 80053; 82553; 84484; 85025; 93005; 96374; 96375; J2270; J2405

== ENCOUNTER 2020-03-06 16:25 | Emergency (ER) | payer OTHER, SELFPAY ==
[2020-03-06] MEDS ORDERED: Adacel (T-DAP) 0.5 ML SYRINGE ONE (16:56)
[2020-03-06] MEDS ORDERED: Acetaminophen 500 MG TAB ONE (17:37)
[2020-03-06] MEDS ORDERED: Rabies Vaccine Human 2.5 UNITS VIAL IM ONE (18:00)
== END 2020-03-06 19:28 | disposition home or self-care (01) ==
LOC: ERS 16:25
DX: S61.052A Open bite of left thumb without damage to nail, initial encounter (principal); E11.9 Type 2 diabetes mellitus without complications; I10 Essential (primary) hypertension; E78.5 Hyperlipidemia, unspecified; E78.00 Pure hypercholesterolemia, unspecified; G43.909 Migraine, unspecified, not intractable, without status migrainosus; F32.9 Major depressive disorder, single episode, unspecified; F17.290 Nicotine dependence, other tobacco product, uncomplicated; Z79.899 Other long term (current) drug therapy; Z79.82 Long term (current) use of aspirin; Z23 Encounter for immunization; W55.01XA Bitten by cat, initial encounter
CPT/HCPCS: 90376; 90471; 90472; 90675; 90715; 96372

== ENCOUNTER 2020-03-09 18:48 | Emergency (ER) | payer SELFPAY ==
[2020-03-09] MEDS ORDERED: Rabies Vaccine Human 2.5 UNITS VIAL IM ONE (19:15)
== END 2020-03-09 20:04 | disposition home or self-care (01) ==
LOC: ERS 18:48
DX: Z23 Encounter for immunization (principal); S61.452D Open bite of left hand, subsequent encounter; E11.9 Type 2 diabetes mellitus without complications; I10 Essential (primary) hypertension; E78.5 Hyperlipidemia, unspecified; E78.00 Pure hypercholesterolemia, unspecified; G43.909 Migraine, unspecified, not intractable, without status migrainosus; F32.9 Major depressive disorder, single episode, unspecified; F17.290 Nicotine dependence, other tobacco product, uncomplicated; Z79.899 Other long term (current) drug therapy; Z79.82 Long term (current) use of aspirin; W55.01XD Bitten by cat, subsequent encounter
CPT/HCPCS: 90471; 90675

== ENCOUNTER 2020-07-03 20:24 | Inpatient (IN) | payer OTHER, SELFPAY ==
[2020-07-03 20:52] LABS: #Basophils 0.1 thou/uL (0.0-0.2); #Eosinphils 0.4 thou/uL (0.0-0.7); #Monocytes 0.5 thou/uL (0.11-0.59); #Neutrophils 3.3 thou/uL (1.40-6.50); %Eosinophils 5.4 % (0.0-10.0); %Lymphocytes 41.1 % (21.0-51.0); %Monocytes 7.3 % (0.0-10.0); %Neutrophils 45.2 % (42.0-75.0); Hemoglobin 11.7 g/dL (12.0-16.0); Mean Corpuscular HGB CONC 31.4 g/dL (32.0-36.0); Mean Corpuscular Hemoglobin 27.2 pg (27.0-31.0); Mean Corpuscular Volume 86.8 fL (78.0-98.0); Mean Platelet Volume 8.5 fL (7.4-10.4); Platelet Count 294 thou/uL (130-400); White Blood Cell (WBC) Count 7.2 thou/uL (4.8-10.8)
--- NOTE | 2020-07-03 21:05 | RAD ---
PORTABLE CHEST: 07/03/20 COMPARISON: 11/23/19 study. HISTORY: Chest pain and shortness of breath. Heart size is borderline. Postop sternotomy changes are present. The lungs are clear of infiltrates. No signs of failure. IMPRESSION: Borderline heart size. POS: OFF
[2020-07-03 21:24] LABS: ALT (SGPT) 7 U/L (8-55); AST (SGOT) 22 U/L (5-34); Albumin 4.3 g/dL (3.5-5.0); Alkaline Phosphatase 90 U/L (40-110); Anion Gap 16 mmol/L (10-20); BUN (Urea Nitrogen) 6 mg/dL (7.0-18.7); Bilirubin, Total 0.2 mg/dL (0.2-1.2); CK (CPK) 106 U/L (29-168); Calc. Creatinine Clearance 0 mL/min (70-130); Calcium 9.4 mg/dL (7.8-10.44); Carbon Dioxide 25 mmol/L (22-29); Chloride 105 mmol/L (98-107); Estimated GFR-MDRD Greater than 90; Globulin 3.8 g/dL (2.4-3.5); Glucose 101 mg/dL (70-105); Potassium 4.5 mmol/L (3.5-5.1); Protein, Total 8.1 g/dL (6.0-8.3); Sodium 141 mmol/L (136-145)
[2020-07-03 22:23] LABS: CKMB 1.8 ng/mL (0-6.6)
[2020-07-03] MEDS ORDERED: Nitroglycerin 2% Ointment 1 INCH/1 GM Packet ONE (22:54)
[2020-07-03] MEDS ORDERED: Nitroglycerin 0.4 MG TAB (25 Tab Bottle) SL PRN (23:02)
[2020-07-03] MEDS ORDERED: Enoxaparin Sodium 30 MG/0.3 ML SYRINGE ONE ×2 (23:13→23:15)
[2020-07-03] MEDS ORDERED: Enoxaparin Sodium 40 MG/0.4 ML SYRINGE ONE (23:13)
[2020-07-04 00:24] LABS: Troponin I 0.127 ng/mL (< 0.028)
[2020-07-04 00:54] VITALS: BMI 28.0
[2020-07-04] MEDS ORDERED: Ondansetron PF 4 MG/2 ML Vial IVP PRN (00:58)
[2020-07-04] MEDS ORDERED: Ondansetron ODT 4 MG TAB SL PRN (00:58)
[2020-07-04] MEDS ORDERED: Acetaminophen 325 MG TAB PO PRN (00:58)
[2020-07-04 03:16] LABS: Cardiac Risk 5.1 (Less than 4.5)
--- NOTE | 2020-07-04 03:24 | HP ---
CHIEF COMPLAINT: Chest pain. HISTORY OF PRESENT ILLNESS: Ms. Crockett is a 45-year-old female with past medical history of myocardial infarction in October of this year, coronary artery bypass graft surgery, diabetes, hypertension, hyperlipidemia, migraine, among others, presented to the emergency room with chest pain. The patient describes more as a tightness or a belt around her chest and back. It has been going on off lately, worse today. Also, she has been having palpitations. She thought initially it may be related to reflux and has been taking medication for it, but it has not been helping. She does take 1 aspirin daily. No other blood thinners. She follows with her cell changer Dr. Guthrie. She saw her few months ago and was told that her echocardiogram has not improved very much. Denies nausea, vomiting, fever, or chills. Initial workup in the emergency room, the patient had an indeterminate troponin of 0.093. She is still having the tightness around her chest and back. The patient was given aspirin and one dose of Lovenox. The patient is being admitted to the hospital for further management. PAST MEDICAL HISTORY: As mentioned above in history of present illness. PAST SURGICAL HISTORY: 1. Coronary artery bypass graft surgery. 2. Dermoid cyst removal. PAST PSYCHIATRIC HISTORY: Depression. SOCIAL HISTORY: Denies alcohol drinking. She smokes cigars 2 per day. FAMILY HISTORY: Positive for diabetes mellitus, hypertension. ALLERGIES: NO KNOWN ALLERGIES. HOME MEDICATIONS: Please see home medication reconciliation form for updated medications. REVIEW OF SYSTEMS: Review of 14 systems negative except what is mentioned above in history of present illness. PHYSICAL EXAMINATION: GENERAL: The patient is awake, alert, in [id number] distress. VITAL SIGNS: Blood pressure 128/83, pulse is 70, respiratory rate is 16, temperature 98.4, and O2 saturation 98% on room air. HEAD AND NECK: Normocephalic, atraumatic. Neck is supple. No JVD. CHEST: Fair bilateral entry. HEART: S1, S2. Regular. ABDOMEN: Soft, nontender. Bowel sounds present. NEUROLOGIC: Anxious, awake, alert, oriented x3. PSYCHIATRIC: Anxious. EXTREMITIES: No clubbing or cyanosis. LABORATORY DATA: Troponin 0.093. ASSESSMENT AND PLAN: 1. Acute chest pain, rule out acute coronary syndrome. 2. History of myocardial infarction. 3. History of prior bypass graft surgery. 4. Hypertension. 5. Hyperlipidemia. 6. Anxiety. PLAN: 1. Admit. 2. Telemonitor. 3. Aspirin. 4. Serial troponins. 5. The patient was given one dose of Lovenox tonight, reassess in a.m. 6. Consult the patient's cell changer in a.m. for evaluation and further recommendations. 7. We will keep the patient n.p.o. after midnight and the patient is to be evaluated in a.m. 8. Reconcile home medications. 9. DVT prophylaxis as appropriate. 10. Expected length of stay, at least 1 midnight, if patient is stable and further workup negative. Job ID: [id number]
[2020-07-04] MEDS ORDERED: Enoxaparin Sodium 60 MG/0.6 ML SYRINGE SC SCH (09:00)
[2020-07-04] MEDS: Aspirin 325 mg Enteric Coated Tablet PO SCH (09:12)
[2020-07-04] MEDS: Metoprolol Tartrate 25 MG TAB PO SCH ×2 (09:13→19:49)
[2020-07-04 09:32] LABS: CKMB 1.5 ng/mL (0-6.6)
[2020-07-04] MEDS ORDERED: Communication Order-Pharmacy FS SCH ×2 (11:00→22:00)
--- NOTE | 2020-07-04 16:05 | PDOC.HOSPP ---
- Subjective Encounter Date: 07/04/20 Encounter Time: 09:45 Subjective: pt up in bed no complains - Objective Vital Signs & Weight: Vital Signs (12 hours) Temp Pulse Resp BP Pulse Ox 07/04/20 15:54 98.5 F 71 20 135/86 94 L 07/04/20 11:51 98.6 F 87 16 153/75 H 99 07/04/20 07:18 98.5 F 87 16 118/64 95 Weight Weight 158 lb 9.6 oz I&O: 07/03/20 07/04/20 07/05/20 06:59 06:59 06:59 Intake Total 360 Balance 360 Result Diagrams: 07/03/20 20:47 07/03/20 20:47 Hospitalist ROS - Review of Systems Cardiovascular: denies: chest pain, palpitations, orthopnea, paroxysmal noc. dyspnea, edema, light headedness, other Gastrointestinal: denies: nausea, vomiting, abdominal pain, diarrhea, constipation, melena, hematochezia, other Genitourinary: denies: dysuria, frequency, incontinence, hematuria, retention, other - Medication Medications: Active Medications Generic Name Dose Route Start Last Admin Trade Name Freq PRN Reason Stop Dose Admin Aspirin 325 mg 07/04/20 09:00 07/04/20 09:12 Ecotrin PO 325 mg DAILY [facility] Administration Metoprolol Tartrate 25 mg 07/04/20 09:00 07/04/20 09:13 Lopressor PO Not Given BID [facility] - Exam Heart: negative: RRR, no murmur, no gallops, no rubs, normal peripheral pulses, irregular, diminshed peripheral pulses, murmur present, II/IV, III/IV Respiratory: negative: CTAB, no wheezes, no rales, no ronchi, normal chest expansion, no tachypnea, normal percussion, rales, rhonchi, tachypneic, wheezes Gastrointestinal: negative: soft, non-tender, non-distended, normal bowel sounds , no palpable masses, no hepatomegaly, no splenomegaly, no bruit, no guarding, no rigidity, tender to palpation, distended, diminished bowl sounds, voluntary guarding Extremities: negative: no cyanosis, no clubbing, no edema, 1+ LE edema, 2+ LE edema, clubbing Hosp A/P (1) DM2 (diabetes mellitus, type 2) Status: Chronic (2) HLD (hyperlipidemia) Code(s): E78.5 - HYPERLIPIDEMIA, UNSPECIFIED Status: Chronic (3) HTN (hypertension) Code(s): I10 - ESSENTIAL (PRIMARY) HYPERTENSION Status: Chronic (4) CAD (coronary artery disease) Code(s): I25.10 - ATHSCL HEART DISEASE OF [place] CORONARY ARTERY W/O ANG PCTRS Status: Acute (5) Chest pain Code(s): R07.9 - CHEST PAIN, UNSPECIFIED Status: Acute - Plan pt up in bed no chest pain for now. cardiology to see pt. ? cardiac cath on Sunday.
--- NOTE | 2020-07-04 16:30 | CON ---
DATE OF CONSULTATION: 07/04/2020 INDICATIONS FOR CONSULTATION: A 45-year-old female with significant coronary artery disease who suffered a myocardial infarction back in October of this year, underwent bypass surgery to the left circumflex and right coronary artery. The left anterior descending artery was not bypassed as it did not have significant stenosis, that was felt to be bypassable at that time. She has been complaining of intermittent chest discomfort, mainly associated with psychological stress and also occasionally with some physical stress. She is able to do some activities without chest pain, but that again is kind of not necessarily associated with any particular thing that she is doing. She has actually had the pain at night sometimes, sometimes while she is sitting, sometimes associated with exertion. She was admitted to the hospital after having the chest discomfort again yesterday. Her troponin-Is are indeterminate at 0.093, increased up to 0.127, and then up to 0.17, and has remained at 0.17. Her BNP was 259. Her MB was 1.8. She continues to have some anxiety, but otherwise her EKG shows normal sinus rhythm with some T-wave inversions, which could be associated with left ventricular hypertrophy or possible underlying ongoing ischemia, but this is mainly associated in the anterior and lateral leads. At this time, she is relatively comfortable. PAST MEDICAL HISTORY: Significant for: 1. Coronary artery disease. 2. History of some cyst removal. 3. She has a history of depression. SOCIAL HISTORY: She smokes occasionally and she says she smokes cigars. She has no alcohol use. FAMILY HISTORY: She does have positive family history for hypertension and also diabetes, but no early family heart disease. ALLERGIES: NONE. MEDICATIONS: She was takin. Aspirin 325 mg a day. 2. Lipitor 20 mg a day. 3. Metoprolol 12.5 mg b.i.d. 4. Multivitamins. 5. B12. REVIEW OF SYSTEMS: Remainder of the 12-point review of systems unremarkable except what was noted in the history of present illness. PHYSICAL EXAMINATION: GENERAL: A well-developed, well-nourished female who is in no acute distress at this time. VITAL SIGNS: Her blood pressure is 118/64, heart rate is 87 and regular, she is afebrile, and respiratory rate 16. HEENT: Shows the head to be normocephalic and atraumatic. Carotid pulses are present without any bruits. CHEST: Clear to auscultation without rales, rhonchi, or wheezing. CARDIOVASCULAR: Regular rate and rhythm with no significant murmurs, heaves, thrills, bruits, or rubs. ABDOMEN: Soft and nontender. Positive bowel sounds are present. There is no organomegaly or masses noted. Femoral pulses are present. EXTREMITIES: No clubbing, cyanosis, or edema. Her pedal pulses are present also. Radial pulses are present. NEUROLOGICAL: She has normal tone. She appears to be normal. She is able to ambulate without any problems. SKIN: Warm and dry. LABORATORY DATA: Hemoglobin 11.7, WBC of 7.2, creatinine of 0.8 with BUN of 6, and potassium is 4.5. Triglycerides of 314, actually was 314 last time they were measured. Her echocardiogram was performed back in April of this year, which showed ejection fraction of 30% to 35%. She also had an echocardiogram performed in October prior to her surgery, which showed ejection fraction of 30% to 35%. IMPRESSION: 1. A 45-year-old female with unstable angina type symptoms with EKG changes, which could be due to angina or could be due to left ventricular hypertrophy. Her enzymes are somewhat indeterminate. Given her history of continued chest pain and recent bypass surgery, I would suggest that she undergo a repeat cardiac catheterization to evaluate for her coronary status and also for the vein graft evaluations. I have discussed the cardiac catheterization with her. We will plan for cardiac catheterization either tomorrow or on Sunday since tomorrow is a holiday. 2. History of hypertension. This is under good control at this time. 3. History of dyslipidemia. Her LDL level, however, is controlled with LDL of 75 and triglycerides of 314. 4. History of anxiety and depression. This will be dealt with by the primary care service. Unfortunately, she also initially has refused to undergo a COVID study. I did explain to her that if she does not undergo the testing that I will not be able to perform cardiac catheterization and then she has agreed to have this study performed. She has had no known exposure that she is aware of. We will be more than happy to continue to follow the patient with you. Further recommendations will depend on the results of the cardiac catheterization. Job ID: [id number]
[2020-07-04] MEDS: Atorvastatin Calcium 20 MG TAB PO SCH (19:49)
[2020-07-04] MEDS ORDERED: Atorvastatin Calcium 20 MG TAB PO SCH (21:00)
[2020-07-05] MEDS: Metoprolol Tartrate 25 MG TAB PO SCH ×2 (08:00→20:06)
[2020-07-05] MEDS: Aspirin 325 mg Enteric Coated Tablet PO SCH (08:03)
[2020-07-05 09:48] LABS: Bilirubin Negative (Negative); Blood, Urine 3+ (Negative); Clarity Turbid (Clear); Glucose, Urine (Dipstick) Normal (Negative); Ketone, Urine Negative (Negative); Leukocyte 500 Leu/uL (Negative); Nitrite Negative (Negative); Protein, Urine (Dipstick) Negative (Neg-Trace); Specific Gravity, Urine 1.011 (1.002-1.036); Squamous Epithelial 0-3 HPF (0-3); Urobilinogen Normal mg/dL (Less than 2); WBC/HPF Greater than 50 HPF (0-3); pH, Urine 7.5 (5.0-9.0)
[2020-07-05 10:07] LABS: Bacteria/HPF 2+ HPF (None Seen)
[2020-07-05] MEDS ORDERED: Midazolam HCl 2 mg/2 ml Vial ONE (10:16)
--- NOTE | 2020-07-05 11:15 | PDOC.CPN ---
- Subjective Date: 07/05/20 Time: 10:00 - Review of Systems General: reports: fatigue Respiratory: reports: shortness of breath Cardiovascular: reports: chest pain Neurological: reports: weakness - Objective Allergies/Adverse Reactions: Allergies Allergy/AdvReac Type Severity Reaction Status Date / Time No Known Allergies Allergy Verified 11/06/19 12:48 Visit Medications: Current Medications Aspirin (Ecotrin) 325 mg PO DAILY [facility] Last Admin: 07/05/20 08:03 Dose: Not Given Atorvastatin Calcium (Lipitor) 40 mg PO HS [facility] Last Admin: 07/04/20 19:49 Dose: 40 mg Metoprolol Tartrate (Lopressor) 25 mg PO BID [facility] Last Admin: 07/05/20 08:00 Dose: 25 mg Miscellaneous Information (Communication Order-Pharmacy) 0 each FS ONE [facility] Stop: 07/05/20 22:01 Nitroglycerin (Nitrostat) 0.4 mg SL Q5MIN PRN PRN Reason: Chest Pain Vital Signs & Weight: Vital Signs Temp Pulse Resp BP Pulse Ox 07/05/20 07:19 98.4 F 57 L 18 148/67 H 97 07/05/20 05:08 98.3 F 77 14 161/90 H 97 07/05/20 00:01 98 F 81 14 151/78 H 97 Weight 158 lb 9.6 oz - Quality Measures Condition: Coronary Artery Disease CV meds: Beta Tita: Yes, SHIRA/ARB: No (hypotension), Statin: Yes, ASA: Yes - Physical Exam HEENT: normocephaly Neck: no JVD/HJR Cardiac: regular rate and rhythm Lungs: clear to auscultation, normal breath sounds Neuro: grossly intact Abdomen: unremarkable Extremities: no edema Musculoskeletal: normal range of motion - Labs Result Diagrams: 07/03/20 20:47 07/03/20 20:47 Troponin/CKMB CK-MB (CK-2) 1.5 ng/mL (0-6.6) 07/04/20 08:42 Troponin I 0.171 ng/mL (< 0.028) H 07/04/20 08:42 - Telemetry Sinus rhythms and dysrhythmias: sinus rhythm - Assessment/Plan Assessment/Plan: 1. CAD. s/p CABG. SVG to RCA, SVG to OM1,3. 2. Chest pain. Pt. for repeat cath to rule out graft stenosis or failure. 3. HTN- continue betablockers. 4. Dyslipidemia: continue statin. 5. Tobacco abuse ( cigars ). Must stop. 6. Depression/anxiety. 7. CMY. Decreased EF since CABG. Consider progression of dz. , graft failure. Add SHIRA-I if BP tolerates . Evaluate coronaries at cath.
[2020-07-05] MEDS ORDERED: Iopamidol 370 76% 100 ML VIAL ONE (11:20)
[2020-07-05] MEDS ORDERED: Iopamidol 370 76% 50 ML VIAL FS ONE (11:20)
[2020-07-05] MEDS ORDERED: Nitroglycerin 0.4 MG TAB (25 Tab Bottle) SL PRN (11:28)
[2020-07-05] MEDS ORDERED: Sodium Chloride 0.9% 200 ML IV PRN (11:28)
[2020-07-05] MEDS ORDERED: Acetaminophen/Codeine 30-300mg Tablet PO PRN ×2 (11:28)
[2020-07-05 11:37] LABS: SARS-CoV-2 MS2 Positive; SARS-CoV-2 N Gene Negative; SARS-CoV-2 S Gene Negative; SARS-CoV-2 by NAA Not Detected (NotDetected); SARS-CoV-2 orf1ab Negative
--- NOTE | 2020-07-05 18:04 | PDOC.HOSPP ---
- Subjective Encounter Date: 07/05/20 Encounter Time: 18:02 Subjective: pt up in bed no complains - Objective Vital Signs & Weight: Vital Signs (12 hours) Temp Pulse Resp BP BP Pulse Ox 07/05/20 16:23 98.6 F 68 16 134/87 100 07/05/20 11:20 97.6 F 78 18 165/102 H 98 07/05/20 07:19 98.4 F 57 L 18 148/67 H 97 Weight Admit Weight 158 lb 9.6 oz Weight 158 lb 9.6 oz I&O: 07/04/20 07/05/20 07/06/20 06:59 06:59 06:59 Intake Total 860 Balance 860 Result Diagrams: 07/03/20 20:47 07/03/20 20:47 Hospitalist ROS - Review of Systems Cardiovascular: denies: chest pain, palpitations, orthopnea, paroxysmal noc. dyspnea, edema, light headedness, other Gastrointestinal: denies: nausea, vomiting, abdominal pain, diarrhea, constipation, melena, hematochezia, other Genitourinary: denies: dysuria, frequency, incontinence, hematuria, retention, other - Medication Medications: Active Medications Generic Name Dose Route Start Last Admin Trade Name Freq PRN Reason Stop Dose Admin Aspirin 325 mg 07/04/20 09:00 07/05/20 08:03 Ecotrin PO Not Given DAILY [facility] Atorvastatin Calcium 40 mg 07/04/20 21:00 07/04/20 19:49 Lipitor PO 40 mg HS [facility] Administration Metoprolol Tartrate 25 mg 07/04/20 09:00 07/05/20 08:00 Lopressor PO 25 mg BID [facility] Administration - Exam Neck: negative: supple, symmetric, no JVD, no thyromegaly, no lymphadenopathy, no carotid bruit, JVD Heart: negative: RRR, no murmur, no gallops, no rubs, normal peripheral pulses, irregular, diminshed peripheral pulses, murmur present, II/IV, III/IV Respiratory: negative: CTAB, no wheezes, no rales, no ronchi, normal chest expansion, no tachypnea, normal percussion, rales, rhonchi, tachypneic, wheezes Gastrointestinal: negative: soft, non-tender, non-distended, normal bowel sounds , no palpable masses, no hepatomegaly, no splenomegaly, no bruit, no guarding, no rigidity, tender to palpation, distended, diminished bowl sounds, voluntary guarding Hosp A/P (1) DM2 (diabetes mellitus, type 2) Status: Chronic (2) HLD (hyperlipidemia) Code(s): E78.5 - HYPERLIPIDEMIA, UNSPECIFIED Status: Chronic (3) HTN (hypertension) Code(s): I10 - ESSENTIAL (PRIMARY) HYPERTENSION Status: Chronic (4) CAD (coronary artery disease) Code(s): I25.10 - ATHSCL HEART DISEASE OF [place] CORONARY ARTERY W/O ANG PCTRS Status: Acute (5) Chest pain Code(s): R07.9 - CHEST PAIN, UNSPECIFIED Status: Acute - Plan pt up in bed no chest pain for now. cardiology to see pt. ? cardiac cath on Sunday. 07/05 pt had cardiac cath will need CABG. CV surgery has been consulted. will add nicotine patch.
[2020-07-05] MEDS ORDERED: Nicotine 7 MG PATCH TD SCH ×2 (18:15→18:30)
[2020-07-05] MEDS: cefTRIAXone\\ROCEPHIN 1 GM in Sodium Chloride 0.9% 100 ML IVPB SCH (19:12)
--- NOTE | 2020-07-05 19:16 | CON ---
DATE OF CONSULTATION: HISTORY OF PRESENT ILLNESS: Ms. Crockett is a 45-year-old woman, who underwent coronary artery bypass grafting x3 with a saphenous vein graft to the distal RCA, OM1, and OM3 on November 07, 2019. At that time, in the op note, I noted that her vessels were diffusely diseased, heavily calcified and bypasses were done distally on all of her vessels due to the calcification. I said she would not be a redo candidate. She has re-presented with chest pain and undergoing cardiac catheterization today. She has had progression of her [place] coronary artery disease. All of her of her bypass grafts have occluded. She is continued to smoke. She has hypertension and dyslipidemia. I have been asked to see her to consider redo bypass surgery. PAST MEDICAL HISTORY: 1. Coronary artery disease, status post coronary artery bypass grafting x3 in October 2019. 2. Hypertension. 3. Dyslipidemia. 4. History of migraine headaches. PAST SURGICAL HISTORY: 1. Coronary artery bypass grafting. 2. Dermoid cyst removal. SOCIAL HISTORY: She continues to smoke tobacco. FAMILY HISTORY: Positive for diabetes and hypertension. ALLERGIES: NONE. CURRENT MEDICATIONS: 1. Aspirin 325 mg daily. 2. Lipitor 20 mg at bedtime. 3. Lopressor 12.5 mg b.i.d. ASSESSMENT AND PLAN: Ms. Corckett is in unfortunate situation. She has heavily calcified disease until distal on the arteries were she was bypassed. At that time, I said she would not be a candidate for redo bypass due to the calcification and location of the bypasses distally. I have reviewed her films and I discussed the patient with Dr. Guthrie. My hope is that she is able to at least stent her LAD and this can hopefully provide enough perfusion to help with her ventricular function and chest pain. Job ID: [id number]
[2020-07-05] MEDS: Atorvastatin Calcium 20 MG TAB PO SCH (20:06)
[2020-07-05] MEDS ORDERED: Communication Order-Pharmacy FS SCH (22:00)
[2020-07-05] MEDS ORDERED: Enoxaparin Sodium 80 MG/0.8 ML SYRINGE SC SCH (22:15)
[2020-07-06 04:52] LABS: #Eosinphils 0.2 thou/uL (0.0-0.7); #Monocytes 0.6 thou/uL (0.11-0.59); #Neutrophils 3.8 thou/uL (1.40-6.50); %Basophils 0.5 % (0.0-1.0); %Eosinophils 2.6 % (0.0-10.0); %Lymphocytes 39.3 % (21.0-51.0); %Monocytes 7.9 % (0.0-10.0); %Neutrophils 49.6 % (42.0-75.0); Hemoglobin 10.7 g/dL (12.0-16.0); Mean Corpuscular HGB CONC 31.3 g/dL (32.0-36.0); Mean Corpuscular Hemoglobin 27.1 pg (27.0-31.0); Mean Corpuscular Volume 86.4 fL (78.0-98.0); Mean Platelet Volume 8.8 fL (7.4-10.4); Platelet Count 237 thou/uL (130-400); RBC Distribution Width 17.6 % (11.5-14.5); Red Blood Cell (RBC) Count 3.96 mill/uL (4.20-5.40); White Blood Cell (WBC) Count 7.7 thou/uL (4.8-10.8)
[2020-07-06] MEDS: Aspirin 325 mg Enteric Coated Tablet PO SCH (05:01)
[2020-07-06] MEDS: Metoprolol Tartrate 25 MG TAB PO SCH ×2 (05:01→20:16)
[2020-07-06 05:13] LABS: Anion Gap 13 mmol/L (10-20); BUN (Urea Nitrogen) 11 mg/dL (7.0-18.7); Calc. Creatinine Clearance 114 mL/min (70-130); Calcium 9.1 mg/dL (7.8-10.44); Carbon Dioxide 25 mmol/L (22-29); Chloride 105 mmol/L (98-107); Estimated GFR-MDRD Greater than 90; Glucose 122 mg/dL (70-105); Sodium 139 mmol/L (136-145)
--- NOTE | 2020-07-06 14:35 | EKG ---
Test Reason : CP Blood Pressure : / mmHG Vent. Rate : 087 BPM Atrial Rate : 087 BPM P-R Int : 148 ms QRS Dur : 086 ms QT Int : 402 ms P-R-T Axes : 078 048 144 degrees QTc Int : 483 ms Normal sinus rhythm Minimal voltage criteria for LVH, may be normal variant Possible Anterior infarct , age undetermined Abnormal ECG Confirmed by JUAN PABLO KAHN DO ([id number]), purchase request editor ANA ROMERO ([id number]) on 07/06/2020 2:34:24 PM Referred By: Confirmed By:JUAN PABLO KAHN DO
--- NOTE | 2020-07-06 14:35 | EKG ---
Test Reason : CHEST PAIN Blood Pressure : / mmHG Vent. Rate : 078 BPM Atrial Rate : 078 BPM P-R Int : 154 ms QRS Dur : 086 ms QT Int : 440 ms P-R-T Axes : 069 036 142 degrees QTc Int : 501 ms Normal sinus rhythm Left ventricular hypertrophy with repolarization abnormality Prolonged QT Abnormal ECG Confirmed by JUAN PABLO KAHN DO ([id number]), city editor ANA ROMERO ([id number]) on 07/06/2020 2:34:25 PM Referred By: Confirmed By:JUAN PABLO KAHN DO
[2020-07-06] MEDS: cefTRIAXone\\ROCEPHIN 1 GM in Sodium Chloride 0.9% 100 ML IVPB SCH (17:36)
--- NOTE | 2020-07-06 18:07 | PDOC.CPN ---
- Subjective Date: 07/06/20 Time: 18:11 - Review of Systems General: denies: fever/chills, weight/appetite/sleep changes, night sweats, fatigue Respiratory: denies: cough, congestion, shortness of breath, exercise intolerance Cardiovascular: reports: chest pain (chest pain is more of a discomfort.) Gastrointestinal: denies: nausea, vomiting, diarrhea, constipation, abd pain, GI bleeding Musculoskeletal: denies: pain, tenderness, stiffness, swelling, arthritis/ arthralgias Neurological: denies: numbness, syncope, seizure, weakness - Objective Allergies/Adverse Reactions: Allergies Allergy/AdvReac Type Severity Reaction Status Date / Time No Known Allergies Allergy Verified 11/06/19 12:48 Visit Medications: Current Medications Acetaminophen/Codeine Phosphate (Tylenol #3) 1 tab PO Q4H PRN PRN Reason: Mild Pain (1-3) Acetaminophen/Codeine Phosphate (Tylenol #3) 2 tab PO Q4H PRN PRN Reason: Moderate Pain (4-6) Aspirin (Ecotrin) 325 mg PO DAILY [facility] Last Admin: 07/06/20 05:01 Dose: 325 mg Atorvastatin Calcium (Lipitor) 40 mg PO HS [facility] Last Admin: 07/05/20 20:06 Dose: 40 mg Ceftriaxone Sodium 1 gm/ (Sodium Chloride) 100 mls @ 200 mls/hr IVPB Q24HR [facility] Last Admin: 07/06/20 17:36 Dose: 100 mls Metoprolol Tartrate (Lopressor) 25 mg PO BID [facility] Last Admin: 07/06/20 05:01 Dose: 25 mg Miscellaneous Information (Communication Order-Pharmacy) 0 each FS ONE [facility] Stop: 07/06/20 22:01 Nitroglycerin (Nitrostat) 0.4 mg SL Q5MIN PRN PRN Reason: Chest Pain Sodium Chloride (Flush - Normal Saline) 10 ml IVF PRN PRN PRN Reason: Saline Flush Vital Signs & Weight: Vital Signs Temp Pulse Resp BP Pulse Ox 07/06/20 15:05 98.1 F 59 L 14 141/74 H 100 07/06/20 11:05 98.2 F 61 14 143/85 H 100 07/06/20 07:15 98.3 F 66 18 125/71 99 Admit Weight 158 lb 9.6 oz Weight 158 lb 9.6 oz - Quality Measures Condition: Coronary Artery Disease CV meds: Beta Tita: Yes, SHIRA/ARB: No (hypotension), Statin: Yes, ASA: Yes - Physical Exam General: alert & oriented x3 Neck: no JVD/HJR Cardiac: regular rate and rhythm Lungs: clear to auscultation Neuro: grossly intact Abdomen: unremarkable, active bowel sounds Extremities: no edema Musculoskeletal: normal range of motion - Labs Result Diagrams: 07/06/20 03:47 07/06/20 03:47 Troponin/CKMB CK-MB (CK-2) 1.5 ng/mL (0-6.6) 07/04/20 08:42 Troponin I 0.171 ng/mL (< 0.028) H 07/04/20 08:42 - Telemetry Sinus rhythms and dysrhythmias: sinus rhythm - Assessment/Plan Assessment/Plan: 1. CAD. s/p CABG. SVG to RCA, SVG to OM1,3. All grafts occluded. Surgery feels that she is not a candidate for redo CABG. Suggest ptca/stent to the LAD. Plan for AM. Procedure and risks discussed with the pt. 2. Chest pain.only mild today. 3. HTN- continue betablockers. 4. Dyslipidemia: continue statin. 5. Tobacco abuse ( cigars ). Must stop. 6. Depression/anxiety. 7. CMY. Decreased EF since CABG. May need to consider Life-Vest.
[2020-07-06] MEDS: Atorvastatin Calcium 20 MG TAB PO SCH (20:16)
[2020-07-07] MEDS: Metoprolol Tartrate 25 MG TAB PO SCH ×2 (05:04→21:19)
[2020-07-07] MEDS: Aspirin 325 mg Enteric Coated Tablet PO SCH (05:04)
[2020-07-07] MEDS ORDERED: Lidocaine 1% (PF) 30 ML VIAL ONE (06:43)
[2020-07-07] MEDS ORDERED: Nitroglycerin 100MG/250ML BOT 250 ML ONE (07:14)
[2020-07-07] MEDS ORDERED: Heparin 10,000 UNITS/ 10 ML VIAL ONE (07:20)
[2020-07-07] MEDS ORDERED: Midazolam HCl 2 mg/2 ml Vial ONE (07:23)
[2020-07-07] MEDS ORDERED: Fentanyl 100 MCG/2 ML VIAL ONE (07:23)
[2020-07-07] MEDS ORDERED: TICAGRELOR 90 MG TABLET ONE (08:17)
[2020-07-07] MEDS ORDERED: Ondansetron PF 4 MG/2 ML Vial ONE (08:56)
[2020-07-07] MEDS ORDERED: DOPamine 400 MG/D5W 250 ML 250 ML ONE (09:45)
[2020-07-07] MEDS ORDERED: DOPamine 400 MG/D5W 250 ML 250 ML IVPB SCH (10:45)
[2020-07-07] MEDS ORDERED: Iopamidol 370 76% 100 ML VIAL ONE (11:08)
[2020-07-07] MEDS ORDERED: Iopamidol 370 76% 50 ML VIAL FS ONE (11:08)
[2020-07-07] MEDS ORDERED: Zolpidem Tartrate 5 MG TAB PO PRN (13:07)
[2020-07-07] MEDS ORDERED: Morphine 2 MG/ML VIAL SLOW IVP PRN (13:07)
[2020-07-07] MEDS ORDERED: Lisinopril 2.5 MG TAB PO SCH (13:30)
[2020-07-07] MEDS: Carvedilol 3.125 MG TAB PO SCH (16:23)
[2020-07-07] MEDS: cefTRIAXone\\ROCEPHIN 1 GM in Sodium Chloride 0.9% 100 ML IVPB SCH (16:24)
--- NOTE | 2020-07-07 19:14 | PDOC.CPN ---
- Subjective Date: 07/07/20 Time: 09:00 - Review of Systems General: denies: fever/chills, weight/appetite/sleep changes, night sweats, fatigue Respiratory: denies: cough, congestion, shortness of breath, exercise intolerance Cardiovascular: denies: chest pain, palpitation, edema, paroxysmal nocturnal dyspnea, orthopnea Gastrointestinal: reports: nausea Musculoskeletal: denies: pain, tenderness, stiffness, swelling, arthritis/ arthralgias Neurological: reports: weakness - Objective Allergies/Adverse Reactions: Allergies Allergy/AdvReac Type Severity Reaction Status Date / Time No Known Allergies Allergy Verified 11/06/19 12:48 Visit Medications: Current Medications Acetaminophen/Codeine Phosphate (Tylenol #3) 1 tab PO Q4H PRN PRN Reason: Mild Pain (1-3) Acetaminophen/Codeine Phosphate (Tylenol #3) 2 tab PO Q4H PRN PRN Reason: Moderate Pain (4-6) Aspirin (Aspirin Chewable) 81 mg PO DAILY [facility] Atorvastatin Calcium (Lipitor) 40 mg PO [facility] Last Admin: 07/06/20 20:16 Dose: 40 mg Carvedilol (Coreg) 3.125 mg PO BID[facility] Last Admin: 07/07/20 16:23 Dose: 3.125 mg Ceftriaxone Sodium 1 gm/ (Sodium Chloride) 100 mls @ 200 mls/hr IVPB Q24HR [facility] Last Admin: 07/07/20 16:24 Dose: 100 mls Dopamine HCl/Dextrose (Dopamine 400 Mg/D5w 250 Ml) 250 mls @ 0 mls/hr IVPB INF [facility] Lisinopril (Zestril) 2.5 mg PO DAILY [facility] Metoprolol Tartrate (Lopressor) 25 mg PO BID [facility] Last Admin: 07/07/20 05:04 Dose: 25 mg Morphine Sulfate (Morphine) 2 mg SLOW IVP Q4H PRN PRN Reason: Moderate Chest Pain (4-6) Nitroglycerin (Nitrostat) 0.4 mg SL Q5MIN PRN PRN Reason: Chest Pain Sodium Chloride (Flush - Normal Saline) 10 ml IVF PRN PRN PRN Reason: Saline Flush Ticagrelor (Brilinta) 90 mg PO BID [facility] Zolpidem Tartrate (Ambien) 5 mg PO HSPRN PRN PRN Reason: Insomnia Vital Signs & Weight: Vital Signs Temp Pulse Resp BP Pulse Ox 07/07/20 16:05 97.8 F 61 14 118/63 98 07/07/20 12:45 98.6 F 61 16 136/64 100 Admit Weight 158 lb 9.6 oz Weight 158 lb 9.6 oz - Quality Measures Condition: Coronary Artery Disease CV meds: Beta Tita: Yes, SHIRA/ARB: No (hypotension), Statin: Yes, ASA: Yes - Physical Exam HEENT: normocephaly Neck: no JVD/HJR, no masses Cardiac: regular rate and rhythm, no murmur Lungs: clear to auscultation Neuro: grossly intact Extremities: no cyanosis, no edema Musculoskeletal: normal range of motion - Labs Result Diagrams: 07/06/20 03:47 07/06/20 03:47 Troponin/CKMB CK-MB (CK-2) 1.5 ng/mL (0-6.6) 07/04/20 08:42 Troponin I 0.171 ng/mL (< 0.028) H 07/04/20 08:42 - Telemetry Sinus rhythms and dysrhythmias: sinus rhythm - Assessment/Plan Assessment/Plan: 1. CAD. s/p CABG. SVG to RCA, SVG to OM1,3. All grafts occluded. Surgery feels that she is not a candidate for redo CABG. Ptca/stent to the LAD this AM. [id number] drug eluting stent to the LAD placed dilated to 2.81mm. No residual stenosis in the LAD. The left main has a 40%stenosis.The OMs are small and 80% stenosed.Not very good targets for stents. The distal L-circ. may be stentable. I am concerned that she may eventually need a stent in the L-main. 2. Chest pain.only mild today. 3. HTN- continue betablockers. 4. Dyslipidemia: continue statin. 5. Tobacco abuse ( cigars ). Must stop. 6. Depression/anxiety. 7. CMY. Decreased EF since CABG. May need to consider Life-Vest.
--- NOTE | 2020-07-07 21:02 | EKG ---
Test Reason : POT STENTS Blood Pressure : / mmHG Vent. Rate : 051 BPM Atrial Rate : 051 BPM P-R Int : 152 ms QRS Dur : 082 ms QT Int : 510 ms P-R-T Axes : 052 059 130 degrees QTc Int : 470 ms Age and gender specific ECG analysis Sinus bradycardia ST elevation consider inferior injury or acute infarct * ACUTE [place] * Consider right ventricular involvement in acute inferior infarct Abnormal ECG When compared with ECG of 03-JUL-2020 23:06,No change. Vent. rate has decreased BY 27 BPM Confirmed by Mariluz ARMENTA ([id number]) on 07/07/2020 9:01:49 PM Referred By: KATHI Confirmed By:Mariluz ARMENTA
[2020-07-07] MEDS: TICAGRELOR 90 MG TABLET PO SCH (21:19)
[2020-07-07] MEDS: Atorvastatin Calcium 20 MG TAB PO SCH (21:19)
[2020-07-08 05:02] LABS: #Eosinphils 0.1 thou/uL (0.0-0.7); #Lymphocytes 2.4 thou/uL (1.20-3.40); #Monocytes 0.8 thou/uL (0.11-0.59); #Neutrophils 5.7 thou/uL (1.40-6.50); %Basophils 0.4 % (0.0-1.0); %Eosinophils 1.2 % (0.0-10.0); %Lymphocytes 26.3 % (21.0-51.0); %Monocytes 8.9 % (0.0-10.0); %Neutrophils 63.3 % (42.0-75.0); Hemoglobin 9.6 g/dL (12.0-16.0); Mean Corpuscular HGB CONC 30.8 g/dL (32.0-36.0); Mean Corpuscular Hemoglobin 26.5 pg (27.0-31.0); Mean Corpuscular Volume 86.3 fL (78.0-98.0); Mean Platelet Volume 8.6 fL (7.4-10.4); Platelet Count 232 thou/uL (130-400); RBC Distribution Width 17.2 % (11.5-14.5); Red Blood Cell (RBC) Count 3.63 mill/uL (4.20-5.40); White Blood Cell (WBC) Count 9.1 thou/uL (4.8-10.8)
[2020-07-08 05:14] LABS: ALT (SGPT) Less than 7 U/L (8-55); AST (SGOT) 9 U/L (5-34); Albumin 3.8 g/dL (3.5-5.0); Alkaline Phosphatase 76 U/L (40-110); Anion Gap 14 mmol/L (10-20); BUN (Urea Nitrogen) 17 mg/dL (7.0-18.7); Bilirubin, Total 0.3 mg/dL (0.2-1.2); Calc. Creatinine Clearance 93 mL/min (70-130); Calcium 9.1 mg/dL (7.8-10.44); Carbon Dioxide 24 mmol/L (22-29); Chloride 104 mmol/L (98-107); Estimated GFR-MDRD 87; Glucose 182 mg/dL (70-105); Potassium 4.1 mmol/L (3.5-5.1); Protein, Total 6.8 g/dL (6.0-8.3); Sodium 138 mmol/L (136-145)
[2020-07-08] MEDS ORDERED: Aspirin Chewable 81 MG TAB PO SCH (09:00)
[2020-07-08] MEDS ORDERED: Lisinopril 2.5 MG TAB PO SCH (09:00)
[2020-07-08] MEDS: Metoprolol Tartrate 25 MG TAB PO SCH (09:54)
[2020-07-08] MEDS: TICAGRELOR 90 MG TABLET PO SCH (09:54)
[2020-07-08] MEDS: Carvedilol 3.125 MG TAB PO SCH (09:55)
--- NOTE | 2020-07-08 10:43 | PDOC.CPN ---
- Subjective Date: 07/08/20 Time: 09:30 - Review of Systems General: denies: fever/chills, weight/appetite/sleep changes, night sweats, fatigue Respiratory: denies: cough, congestion, shortness of breath, exercise intolerance Cardiovascular: denies: chest pain, palpitation, edema, paroxysmal nocturnal dyspnea, orthopnea Gastrointestinal: denies: nausea, vomiting, diarrhea, constipation, abd pain, GI bleeding Musculoskeletal: denies: pain, tenderness, stiffness, swelling, arthritis/ arthralgias Neurological: denies: numbness, syncope, seizure, weakness - Objective Allergies/Adverse Reactions: Allergies Allergy/AdvReac Type Severity Reaction Status Date / Time No Known Allergies Allergy Verified 11/06/19 12:48 Visit Medications: Current Medications Acetaminophen/Codeine Phosphate (Tylenol #3) 1 tab PO Q4H PRN PRN Reason: Mild Pain (1-3) Acetaminophen/Codeine Phosphate (Tylenol #3) 2 tab PO Q4H PRN PRN Reason: Moderate Pain (4-6) Aspirin (Aspirin Chewable) 81 mg PO DAILY [facility] Last Admin: 07/08/20 09:53 Dose: 81 mg Atorvastatin Calcium (Lipitor) 40 mg PO HS [facility] Last Admin: 07/07/20 21:19 Dose: 40 mg Carvedilol (Coreg) 3.125 mg PO BID-[facility] Last Admin: 07/08/20 09:55 Dose: 3.125 mg Ceftriaxone Sodium 1 gm/ (Sodium Chloride) 100 mls @ 200 mls/hr IVPB Q24HR [facility] Last Admin: 07/07/20 16:24 Dose: 100 mls Dopamine HCl/Dextrose (Dopamine 400 Mg/D5w 250 Ml) 250 mls @ 0 mls/hr IVPB INF [facility] Lisinopril (Zestril) 2.5 mg PO DAILY [facility] Last Admin: 07/08/20 09:53 Dose: 2.5 mg Morphine Sulfate (Morphine) 2 mg SLOW IVP Q4H PRN PRN Reason: Moderate Chest Pain (4-6) Nitroglycerin (Nitrostat) 0.4 mg SL Q5MIN PRN PRN Reason: Chest Pain Sodium Chloride (Flush - Normal Saline) 10 ml IVF PRN PRN PRN Reason: Saline Flush Ticagrelor (Brilinta) 90 mg PO BID [facility] Last Admin: 07/08/20 09:54 Dose: 90 mg Zolpidem Tartrate (Ambien) 5 mg PO HSPRN PRN PRN Reason: Insomnia Vital Signs & Weight: Vital Signs Temp Pulse Resp BP Pulse Ox 07/08/20 07:16 97.9 F 64 15 125/78 100 07/08/20 04:49 98.3 F 60 16 120/57 L 98 07/07/20 23:19 65 16 109/57 L 99 Admit Weight 158 lb 9.6 oz Weight 158 lb 9.6 oz - Quality Measures Condition: Coronary Artery Disease CV meds: Beta Tita: Yes, SHIRA/ARB: Yes (hypotension), Statin: Yes, ASA: Yes - Physical Exam HEENT: normocephaly Neck: no JVD/HJR Cardiac: regular rate and rhythm Lungs: clear to auscultation, normal breath sounds Neuro: grossly intact Abdomen: unremarkable Extremities: no cyanosis, no edema Musculoskeletal: normal range of motion - Labs Result Diagrams: 07/08/20 04:30 07/08/20 04:30 Troponin/CKMB CK-MB (CK-2) 1.5 ng/mL (0-6.6) 07/04/20 08:42 Troponin I 0.171 ng/mL (< 0.028) H 07/04/20 08:42 - Telemetry Sinus rhythms and dysrhythmias: sinus rhythm - Assessment/Plan Assessment/Plan: 1. CAD. s/p CABG. SVG to RCA, SVG to OM1,3. All grafts occluded. Surgery feels that she is not a candidate for redo CABG. Ptca/stent to the LAD yesterday. [id number] drug eluting stent to the LAD placed dilated to 2.81mm. No residual stenosis in the LAD. The left main has a 40%stenosis.The OMs are small and 80% stenosed.Not very good targets for stents. The distal L-circ. may be stentable. I am concerned that she may eventually need a stent in the L-main. 2. Chest pain.only mild today. 3. HTN- continue betablockers. 4. Dyslipidemia: continue statin. 5. Tobacco abuse ( cigars ). Must stop. 6. Depression/anxiety. 7. CMY. Decreased EF since CABG. May need to consider Life-Vest. Will repeat the echo in 2-4 weeks now that she is revascularized. If the EF is still < 35% then plan for Life-Vest and possibly eventual AICD.
[2020-07-08 11:44] VITALS: TEMP 98.5
--- NOTE | 2020-07-08 13:40 | PDOC.HOSPP ---
- Subjective Encounter Date: 07/06/20 Encounter Time: 10:30 Subjective: pt up in bed no complains - Objective Vital Signs & Weight: Vital Signs (12 hours) Temp Pulse Resp BP Pulse Ox 07/08/20 11:35 98.5 F 56 L 18 119/65 99 07/08/20 07:16 97.9 F 64 15 125/78 100 07/08/20 04:49 98.3 F 60 16 120/57 L 98 Weight Admit Weight 158 lb 9.6 oz Weight 158 lb 9.6 oz I&O: 07/07/20 07/08/20 07/09/20 06:59 06:59 06:59 Intake Total 1800 1080 Balance 1800 1080 Result Diagrams: 07/08/20 04:30 07/08/20 04:30 Hospitalist ROS - Review of Systems Respiratory: denies: cough, dry, shortness of breath, hemoptysis, SOB with excertion, pleuritic pain, sputum, wheezing, other Cardiovascular: denies: chest pain, palpitations, orthopnea, paroxysmal noc. dyspnea, edema, light headedness, other Gastrointestinal: denies: nausea, vomiting, abdominal pain, diarrhea, constipation, melena, hematochezia, other - Exam Neck: negative: supple, symmetric, no JVD, no thyromegaly, no lymphadenopathy, no carotid bruit, JVD Heart: negative: RRR, no murmur, no gallops, no rubs, normal peripheral pulses, irregular, diminshed peripheral pulses, murmur present, II/IV, III/IV Respiratory: negative: CTAB, no wheezes, no rales, no ronchi, normal chest expansion, no tachypnea, normal percussion, rales, rhonchi, tachypneic, wheezes Gastrointestinal: negative: soft, non-tender, non-distended, normal bowel sounds , no palpable masses, no hepatomegaly, no splenomegaly, no bruit, no guarding, no rigidity, tender to palpation, distended, diminished bowl sounds, voluntary guarding Hosp A/P (1) DM2 (diabetes mellitus, type 2) Status: Chronic (2) HLD (hyperlipidemia) Code(s): E78.5 - HYPERLIPIDEMIA, UNSPECIFIED Status: Chronic (3) HTN (hypertension) Code(s): I10 - ESSENTIAL (PRIMARY) HYPERTENSION Status: Chronic (4) CAD (coronary artery disease) Code(s): I25.10 - ATHSCL HEART DISEASE OF [place] CORONARY ARTERY W/O ANG PCTRS Status: Acute (5) Chest pain Code(s): R07.9 - CHEST PAIN, UNSPECIFIED Status: Acute - Plan pt up in bed no chest pain for now. cardiology to see pt. ? cardiac cath on Sunday. 07/05 pt had cardiac cath will need CABG. CV surgery has been consulted. will add nicotine patch. 07/06 pt evaluated by cv and no surgery. pt to get cath in am.
--- NOTE | 2020-07-08 13:42 | PDOC.HOSPP ---
- Subjective Encounter Date: 07/07/20 Encounter Time: 16:00 Subjective: pt up in bed no complains - Objective Vital Signs & Weight: Vital Signs (12 hours) Temp Pulse Resp BP Pulse Ox 07/08/20 11:35 98.5 F 56 L 18 119/65 99 07/08/20 07:16 97.9 F 64 15 125/78 100 07/08/20 04:49 98.3 F 60 16 120/57 L 98 Weight Admit Weight 158 lb 9.6 oz Weight 158 lb 9.6 oz I&O: 07/07/20 07/08/20 07/09/20 06:59 06:59 06:59 Intake Total 1800 1080 Balance 1800 1080 Result Diagrams: 07/08/20 04:30 07/08/20 04:30 Hospitalist ROS - Review of Systems Cardiovascular: denies: chest pain, palpitations, orthopnea, paroxysmal noc. dyspnea, edema, light headedness, other Gastrointestinal: denies: nausea, vomiting, abdominal pain, diarrhea, constipation, melena, hematochezia, other Genitourinary: denies: dysuria, frequency, incontinence, hematuria, retention, other - Exam Neck: negative: supple, symmetric, no JVD, no thyromegaly, no lymphadenopathy, no carotid bruit, JVD Heart: negative: RRR, no murmur, no gallops, no rubs, normal peripheral pulses, irregular, diminshed peripheral pulses, murmur present, II/IV, III/IV Respiratory: negative: CTAB, no wheezes, no rales, no ronchi, normal chest expansion, no tachypnea, normal percussion, rales, rhonchi, tachypneic, wheezes Gastrointestinal: negative: soft, non-tender, non-distended, normal bowel sounds , no palpable masses, no hepatomegaly, no splenomegaly, no bruit, no guarding, no rigidity, tender to palpation, distended, diminished bowl sounds, voluntary guarding Extremities - other findings: right groin dressing intact Hosp A/P (1) DM2 (diabetes mellitus, type 2) Status: Chronic (2) HLD (hyperlipidemia) Code(s): E78.5 - HYPERLIPIDEMIA, UNSPECIFIED Status: Chronic (3) HTN (hypertension) Code(s): I10 - ESSENTIAL (PRIMARY) HYPERTENSION Status: Chronic (4) CAD (coronary artery disease) Code(s): I25.10 - ATHSCL HEART DISEASE OF [place] CORONARY ARTERY W/O ANG PCTRS Status: Acute (5) Chest pain Code(s): R07.9 - CHEST PAIN, UNSPECIFIED Status: Acute - Plan pt up in bed no chest pain for now. cardiology to see pt. ? cardiac cath on Sunday. 07/05 pt had cardiac cath will need CABG. CV surgery has been consulted. will add nicotine patch. 07/06 pt evaluated by cv and no surgery. pt to get cath in am. 07/07 pt underwent cardiac cath and a stent to LAD. will observe overnight
[2020-07-08 13:52] VITALS: BP 108/68
--- NOTE | 2020-07-08 23:45 | EKG ---
Test Reason : Blood Pressure : / mmHG Vent. Rate : 055 BPM Atrial Rate : 055 BPM P-R Int : 152 ms QRS Dur : 082 ms QT Int : 444 ms P-R-T Axes : 055 058 118 degrees QTc Int : 424 ms Age and gender specific ECG analysis Sinus bradycardia ST elevation consider inferior injury or acute infarct * ACUTE [place] * Consider right ventricular involvement in acute inferior infarct Abnormal ECG When compared with ECG of 07-JUL-2020 10:00, QT has shortened Confirmed by Mariluz ARMENTA ([id number]) on 07/08/2020 11:45:18 PM Referred By: KATHI Confirmed By:Mariluz ARMENTA
--- NOTE | 2020-07-09 00:38 | DIS ---
DATE OF ADMISSION: 07/05/2020 DATE OF DISCHARGE: 07/08/2020 DISCHARGE DIAGNOSES: 1. Chest pain. 2. Coronary artery disease. 3. Hyperlipidemia. 4. Urinary tract infection. HOSPITAL COURSE: The patient is a 45-year-old female, who initially came into the hospital with complaints of chest pain. She initially underwent a cardiac catheterization, that recommended a redo of a bypass surgery. She was seen by CV Surgery on July 05, who recommended that she is not a candidate for a redo bypass due to calcification indication of the bypass distally. At this time, she underwent a catheterization again for the second time and underwent a stent placement to her LAD. She did have significant lower ejection fraction. Her EF was 30% to 35% and global hypokinesis. The recommendation from Cardiology was the patient will follow up as outpatient for repeat of echo. If her echo EF does not improve, then she will require an AICD and also possibly a LifeVest. At this time, she was discharged home on the following medications; 1. Aspirin 81 mg daily. 2. Brilinta 90 mg twice a day. 3. Lisinopril 2.5 daily. 4. Omnicef 300 mg b.i.d. 5. Coreg 3.125 b.i.d. 6. Multivitamin one p.o. daily. PHYSICAL EXAMINATION: VITAL SIGNS: On discharge; 97.9, 64, 15, 100% on room air, and 119/65. GENERAL: She is awake, alert, and oriented x3. Does not appear in distress. CV: S1 and S2 present. No murmurs, rubs, or gallops. ABDOMEN: Soft and nontender. Bowel sounds are present x2. Again, she will be discharged home. She will follow up with her primary and Cardiology. Job ID: [id number]
== END 2020-07-08 13:02 | disposition home or self-care (01) | DRG 247 ==
LOC: ERS 20:24 → 2SW 22:58 → OBSVTOIN 07-05 09:37 → 2NO 07-05 14:15
PROVIDERS: ADMIT Internal Medicine; ATTEND Internal Medicine
PROC: 4A023N7 Measurement of Cardiac Sampling and Pressure, Left Heart, Percutaneous Approach (ICD-10-PCS; 2020-07-05)
PROC: B2111ZZ Fluoroscopy of Multiple Coronary Arteries using Low Osmolar Contrast (ICD-10-PCS; 2020-07-05)
PROC: B2131ZZ Fluoroscopy of Multiple Coronary Artery Bypass Grafts using Low Osmolar Contrast (ICD-10-PCS; 2020-07-05)
PROC: B2151ZZ Fluoroscopy of Left Heart using Low Osmolar Contrast (ICD-10-PCS; 2020-07-05)
PROC: 027034Z Dilation of Coronary Artery, One Artery with Drug-eluting Intraluminal Device, Percutaneous Approach (ICD-10-PCS; principal; 2020-07-07)
PROC: B241ZZ3 Ultrasonography of Multiple Coronary Arteries, Intravascular (ICD-10-PCS; 2020-07-07)
DX: R07.9 Chest pain, unspecified (principal); T82.898A Other specified complication of vascular prosthetic devices, implants and grafts, initial encounter; N39.0 Urinary tract infection, site not specified; I42.9 Cardiomyopathy, unspecified; Z20.828 Contact with and (suspected) exposure to other viral communicable diseases; I25.10 Atherosclerotic heart disease of native coronary artery without angina pectoris; E11.9 Type 2 diabetes mellitus without complications; I10 Essential (primary) hypertension; E78.5 Hyperlipidemia, unspecified; G43.909 Migraine, unspecified, not intractable, without status migrainosus; F32.9 Major depressive disorder, single episode, unspecified; F17.290 Nicotine dependence, other tobacco product, uncomplicated; F41.9 Anxiety disorder, unspecified; Y83.2 Surgical operation with anastomosis, bypass or graft as the cause of abnormal reaction of the patient, or of later complication, without mention of misadventure at the time of the procedure; Z79.82 Long term (current) use of aspirin; Z95.1 Presence of aortocoronary bypass graft; I25.2 Old myocardial infarction
CPT/HCPCS: 36415; 71045; 80048; 80053; 80061; 81001; 82550; 82553; 83880; 84484; 85025; 85347; 87077; 87086; 87186; 87635; 92928; 92978; 93005; 93010; 93306; 93459; 93567; 93798; 96372; 99152; 99153; C1753; C1874; C9600; G0378; J0696; J1265; J1644; J1650; J2001; J2250; J2405; J3010; J3490; Q9967; U0003

== ENCOUNTER 2020-09-27 01:26 | Inpatient (IN) | payer OTHER, SELFPAY ==
[2020-09-27] MEDS ORDERED: Aspirin 325 MG TAB ONE (01:41)
[2020-09-27] MEDS ORDERED: Nitroglycerin 2% Ointment 1 INCH/1 GM Packet ONE (01:41)
[2020-09-27 02:02] LABS: #Basophils 0.1 thou/uL (0.0-0.2); #Eosinphils 0.2 thou/uL (0.0-0.7); #Lymphocytes 2.5 thou/uL (1.20-3.40); #Monocytes 0.4 thou/uL (0.11-0.59); #Neutrophils 2.3 thou/uL (1.40-6.50); %Basophils 0.9 % (0.0-1.0); %Eosinophils 4.5 % (0.0-10.0); %Lymphocytes 44.9 % (21.0-51.0); %Monocytes 7.9 % (0.0-10.0); %Neutrophils 41.8 % (42.0-75.0); Hemoglobin 9.2 g/dL (12.0-16.0); Mean Corpuscular HGB CONC 30.7 g/dL (32.0-36.0); Mean Corpuscular Hemoglobin 25.7 pg (27.0-31.0); Mean Corpuscular Volume 83.5 fL (78.0-98.0); Mean Platelet Volume 7.8 fL (7.4-10.4); Platelet Count 278 thou/uL (130-400); RBC Distribution Width 14.4 % (11.5-14.5); Red Blood Cell (RBC) Count 3.57 mill/uL (4.20-5.40); White Blood Cell (WBC) Count 5.6 thou/uL (4.8-10.8)
[2020-09-27 02:09] LABS: BHCG - Serum Negative (NEGATIVE); Pregs Control Background? CLEAR/WHITE (CLR/WHITE); Pregs Control Bar Appear? YES (CONTROL BAR)
[2020-09-27 02:18] LABS: ALT (SGPT) Less than 7 U/L (8-55); AST (SGOT) 9 U/L (5-34); Albumin 3.9 g/dL (3.5-5.0); Alkaline Phosphatase 80 U/L (40-110); Anion Gap 12 mmol/L (10-20); BUN (Urea Nitrogen) 11 mg/dL (7.0-18.7); Bilirubin, Total 0.3 mg/dL (0.2-1.2); Calc. Creatinine Clearance 0 mL/min (70-130); Calcium 8.3 mg/dL (7.8-10.44); Carbon Dioxide 27 mmol/L (22-29); Chloride 103 mmol/L (98-107); Estimated GFR-MDRD Greater than 90; Globulin 3.3 g/dL (2.4-3.5); Glucose 164 mg/dL (70-105); Lipase 12 U/L (8-78); Potassium 3.6 mmol/L (3.5-5.1); Protein, Total 7.2 g/dL (6.0-8.3); Sodium 138 mmol/L (136-145)
[2020-09-27] MEDS ORDERED: Nitroglycerin 0.4 MG TAB (25 Tab Bottle) SL PRN (05:05)
[2020-09-27] MEDS ORDERED: Acetaminophen 650 MG Suppository PR PRN (05:05)
[2020-09-27] MEDS ORDERED: HYDROcodone/Acetaminophen 5/325 mg Tablet PO PRN ×2 (05:05)
[2020-09-27] MEDS ORDERED: Acetaminophen 325 MG TAB PO PRN (05:05)
[2020-09-27] MEDS ORDERED: Ondansetron PF 4 MG/2 ML Vial IVP PRN (05:05)
[2020-09-27] MEDS ORDERED: Ondansetron ODT 4 MG TAB PO PRN (05:05)
--- NOTE | 2020-09-27 05:09 | PDOC.HHP ---
Hospitalist HPI - History of Present Illness chest pain History of Present Illness: Case of an 45 y/o female with a pmhx of htn, hld hypercholesterolemia and cad s/p cabg s/p recent stent in june who comes to to hospital due to chest pain. patent states than since 1 week ago she started with chest pain on exercation, anytime should would try to exert herself as well as any stressful situation will give her chest pain and dissipate when she rested or calm herself down but state that since 4 days ago her chest pain will start to appear at rest intermittnetly, she decided to come today because it was 8/10 radiated to both of her arms and has been constant for atleast 4 hours and is not responding to her sublingual nitro. patient denies any sob or diaphoresis did report some nausea and palpitations Hospitalist ROS - Review of Systems All other systems reviewed; all pertinent +/- noted in HPI/Subj Hospitalist History - Past Surgical History Past Surgical History: reports: CABG Other Surgical History: dermoid cyst remove - Social History Smoking Status: Former smoker Alcohol: reports: None Drugs: reports: none - Exam General Appearance: NAD, awake alert Eye: PERRL, anicteric sclera ENT: normocephalic atraumatic, no oropharyngeal lesions Neck: supple, symmetric, no JVD Heart: RRR, no murmur, no gallops Respiratory: CTAB, no wheezes, no rales Gastrointestinal: soft, non-tender, non-distended, normal bowel sounds Extremities: no cyanosis, no clubbing, no edema Skin: normal turgor, no lesions, no rashes Neurological: cranial nerve grossly intact, normal sensation to touch, no weakness Musculoskeletal: normal tone, normal strength, no muscle wasting Psychiatric: normal affect, normal behavior, A&O x 3 Hospitalist Results - Labs Result Diagrams: 09/27/20 01:49 09/27/20 01:49 Lab results: WBC 5.6 thou/uL (4.8-10.8) 09/27/20 01:49 Hgb 9.2 g/dL (12.0-16.0) L 09/27/20 01:49 Hct 29.8 % (36.0-47.0) L 09/27/20 01:49 MCV 83.5 fL (78.0-98.0) 09/27/20 01:49 Plt Count 278 thou/uL (130-400) 09/27/20 01:49 Neutrophils % 41.8 % (42.0-75.0) L 09/27/20 01:49 Sodium 138 mmol/L (136-145) 09/27/20 01:49 Potassium 3.6 mmol/L (3.5-5.1) 09/27/20 01:49 Chloride 103 mmol/L (98-107) 09/27/20 01:49 Carbon Dioxide 27 mmol/L (22-29) 09/27/20 01:49 BUN 11 mg/dL (7.0-18.7) 09/27/20 01:49 Creatinine 0.76 mg/dL (0.6-1.1) 09/27/20 01:49 Glucose 164 mg/dL (70-105) H 09/27/20 01:49 Calcium 8.3 mg/dL (7.8-10.44) 09/27/20 01:49 Total Bilirubin 0.3 mg/dL (0.2-1.2) 09/27/20 01:49 AST 9 U/L (5-34) 09/27/20 01:49 ALT Less than 7 U/L (8-55) L 09/27/20 01:49 Alkaline Phosphatase 80 U/L (40-110) 09/27/20 01:49 Troponin I 0.012 ng/mL (< 0.028) 09/27/20 01:49 Serum Total Protein 7.2 g/dL (6.0-8.3) 09/27/20 01:49 Albumin 3.9 g/dL (3.5-5.0) 09/27/20 01:49 Lipase 12 U/L (8-78) 09/27/20 01:49 Hospitalist H&P A/P - Problem (1) Chest pain Code(s): R07.9 - CHEST PAIN, UNSPECIFIED Status: Acute (2) CAD (coronary artery disease) Code(s): I25.10 - ATHSCL HEART DISEASE OF [place] CORONARY ARTERY W/O ANG PCTRS Status: Acute (3) DM2 (diabetes mellitus, type 2) Status: Chronic (4) HLD (hyperlipidemia) Code(s): E78.5 - HYPERLIPIDEMIA, UNSPECIFIED Status: Chronic (5) HTN (hypertension) Code(s): I10 - ESSENTIAL (PRIMARY) HYPERTENSION Status: Chronic - Plan Plan: case of an 45y/o female with extensive cad who comes to hospital due to chest pain chest pain in a cad pt - ekg w/o st ischemic changes, T waves flattened v2-v6 [place] normal - initial troponin negative will trend - recent 2d echo ef 35-40%, trace MR + mid TR - will cosult cardiology - telemetry monitoring - on optimal cad medication with beta tiffany, statin, acei and dual antiplate let - recent stent in June - prn sublingual nitro - evaluation of modifiable risk factors with lipid panel and a1c htn / hld / hypercholesterolemia as above DM ss+acc
[2020-09-27] MEDS ORDERED: HumaLOG 300 UNITS/3 ML VIAL SC PRN (05:29)
[2020-09-27] MEDS ORDERED: Dextrose 5% in Water 1,000 ML IV PRN (05:29)
[2020-09-27] MEDS ORDERED: Dextrose 50% Abboject 50 ML SYRINGE SLOW IVP PRN (05:29)
[2020-09-27 07:21] LABS: Troponin I 0.015 ng/mL (< 0.028)
--- NOTE | 2020-09-27 07:58 | RAD ---
RADIOGRAPH CHEST 1 VIEW: DATE: 09/27/2020 HISTORY: 45-year-old female with chest pain FINDINGS: There are no airspace densities, pulmonary edema, pneumothorax, or cardiomegaly. The lateral costophr enic angles are sharp. There are sternotomy wires. IMPRESSION: No acute cardiopulmonary findings.
[2020-09-27 08:31] LABS: Hemoglobin A1c 6.5 % (4.0-6.0)
[2020-09-27] MEDS ORDERED: Aspirin Chewable 81 MG TAB ONE (08:34)
[2020-09-27] MEDS ORDERED: Enoxaparin Sodium 40 MG/0.4 ML SYRINGE ONE (08:34)
[2020-09-27 08:46] LABS: Cardiac Risk 4.5 (Less than 4.5); Magnesium 1.7 mg/dL (1.6-2.6)
[2020-09-27] MEDS: Carvedilol 3.125 MG TAB PO SCH ×2 (08:48→18:04)
[2020-09-27] MEDS: Aspirin Chewable 81 MG TAB PO SCH (08:48)
[2020-09-27] MEDS: Lisinopril 2.5 MG TAB PO SCH (08:48)
[2020-09-27 08:49] LABS: Troponin I 0.012 ng/mL (< 0.028)
[2020-09-27] MEDS: TICAGRELOR 90 MG TABLET PO SCH ×2 (08:49→21:41)
[2020-09-27 08:50] LABS: SARS-CoV-2 MS2 Positive; SARS-CoV-2 N Gene Negative; SARS-CoV-2 S Gene Negative; SARS-CoV-2 by NAA Not Detected (NotDetected); SARS-CoV-2 orf1ab Negative
[2020-09-27] MEDS: Enoxaparin Sodium 40 MG/0.4 ML SYRINGE SC SCH (08:50)
[2020-09-27] MEDS ORDERED: Enoxaparin Sodium 40 MG/0.4 ML SYRINGE SC SCH (09:00)
[2020-09-27 16:05] VITALS: BMI 29.5
[2020-09-27] MEDS ORDERED: ALPRAZolam 0.25 MG TAB PO PRN (17:07)
--- NOTE | 2020-09-27 17:07 | PDOC.BPN ---
- Brief Progress Note Encounter Date: 09/27/20 Encounter Time: 17:06 Ms. Crockett is a 45-year-old woman whose medical history includes coronary disease with prior bypass surgery and recent stent presented to the hospital with ongoing chest discomfort. She described what she said was an ache that has been intermittent since about a week ago. It comes on at all times and will go away and then come back again. She has had negative troponins since being admitted. At the time that I saw her she is chest pain-free. We will restart her home medications. Cardiology consultation is pending.
--- NOTE | 2020-09-27 17:52 | CON ---
DATE OF CONSULTATION: REASON FOR CONSULTATION: Recurrent chest pain. Please see Abram Lizarraga's full consultation for details. HISTORY OF PRESENT ILLNESS: Ms. Crockett has an extensive cardiac history. She has been seen and evaluated by Dr. Ryan Guthrie. She recently presented with recurrent chest pain. Her CKs and troponins have been negative. Her EKG is felt to be nonspecific. She is currently chest pain free. Please refer to full consultation by Dr. Lizarraga. PHYSICAL EXAMINATION: VITAL SIGNS: Blood pressure 130/70, pulse 70, temperature 98.2. General: The patient is a pleasant woman in no acute distress, appears stated age. Head, Eyes, Ears, Nose and Throat: Sclerae without icterus. Mouth: Moist mucous membranes, normal palate. Neck: No jugular venous distention. Carotid upstroke is brisk. No bruits bilaterally. Lungs: Clear to auscultation. Heart: Regular rate and rhythm, normal S1 and S2. Abdomen: Soft, nontender, nondistended. Extremities: No edema. PERTINENT LABORATORY DATA: Hemoglobin 9.2. COVID negative. IMPRESSION: 1. Recurrent chest pain. 2. Coronary artery disease. 3. Status post bypass surgery. 4. Status post stent placement. RECOMMENDATIONS: Ms. Crockett did state she has had intermittent episodes of elevated blood pressure recently. We will try and monitor her blood pressure aggressively and make adjustments if needed. She has been taking Coreg in addition to p.r.n. Toprol. I have encouraged her not to do this. We would recommend long-acting nitrates in addition to possible Ranexa. Also consider nitroglycerin patch. I will keep n.p.o. after midnight in case she has recurrent pain and would benefit from a noninvasive stress study. Job ID: [id number]
[2020-09-27] MEDS ORDERED: Metoprolol Tartrate 25 MG TAB PO SCH (21:00)
[2020-09-27] MEDS: Atorvastatin Calcium 40 MG TAB PO SCH (21:41)
--- NOTE | 2020-09-27 22:23 | CON ---
DATE OF CONSULTATION: 09/27/2020 INDICATION FOR CARDIOLOGY CONSULTATION: This is a 45-year-old female with significant past history of coronary artery disease, who suffered from a myocardial infarction in October of this past year. At that time, she underwent a three- vessel cardiac bypass surgery involving OM1, OM3, and RCA. In addition, in June, patient had another hospital admission for chest pain. At that time, she underwent a cardiac catheterization showing blockage of the bypass and the recommendation at that time was repeat bypass. However, per Dr. Peace, the patient was not a candidate for a bypass. The patient therefore underwent a subsequent cardiac catheterization with stent placement to her LAD. Of note, at that time, she had a lower EF of 30% to 35% with global hypokinesis and was instructed to follow up with Cardiology. At that time, an AICD was considered. Today, the patient is presenting with a progressive chest pain. She states that the chest pain initially started approximately a month ago, has been worsening. A week ago, the patient states that the pain became to occur each time she was exerting herself and occasionally could occur when she was sitting, watching an intense [employer] video or becoming anxious. She states that this chest pain wraps around her chest, is similar to her previous episodes, but does have a new context as well. She denies any shortness of breath, nausea, vomiting, or presyncope. Today, she does report some palpitations. In the ER, she had two troponins of 0.015 and 0.012. Her EKG showed sinus bradycardia with some T-wave inversions, but currently after nitroglycerin and aspirin in the ER, she denies any further chest pain. The patient has been experiencing elevated blood pressure with associated chest pain. She has been taking metoprolol tartrate 25 mg at times to help regulate her blood pressure. PAST MEDICAL HISTORY: 1. Coronary artery disease. 2. Depression. 3. Hypertension. 4. Conversion disorder. 5. Anxiety. 6. Type 2 diabetes, diet controlled. SOCIAL HISTORY: The patient reports a history of smoking Black and Mild. However, she has stopped. FAMILY HISTORY: She reports a positive family history for hypertension and diabetes, but not for heart disease. ALLERGIES: NONE. MEDICATIONS: 1. Coreg 3.125 mg b.i.d. 2. Nitroglycerin 0.4 mg p.r.n. chest pain. 3. Plavix 75 mg p.o. daily. 4. Atorvastatin 40 mg p.o. daily. 5. Aspirin 81 mg p.o. daily. 6. Lisinopril 2.5 mg p.o. daily. 7. The patient has been taking metoprolol tartrate on and off as needed for her blood pressure. REVIEW OF SYSTEMS: Remainder of 12-point review of systems is unremarkable except for what was noted in history of present illness. PHYSICAL EXAMINATION: VITAL SIGNS: Blood pressure 122/75, pulse 53, respirations 17, temperature 97.6, pulse ox 98% on room air. GENERAL: Well-developed, well-nourished female, in no acute distress. HEENT: Head is normocephalic, atraumatic. Carotid pulses are present without any bruits. CHEST: Clear to auscultation bilaterally. CARDIOVASCULAR: Regular, bradycardic with no murmurs, or rubs. ABDOMEN: Soft, nontender, bowel cells are present, no masses felt. EXTREMITIES: No clubbing, cyanosis, or edema felt. Bilateral pedal pulses are present, radial pulses are present. NEUROLOGICAL: Grossly intact, moving all extremities with no difficulty. SKIN: Warm and dry, intact. LABORATORY DATA: Hemoglobin 9.2, hematocrit 29.8. Creatinine 0.76, BUN 11, potassium 3.6. An LDH was collected showing 116, HDL showing 40. She has an A1c of 6.5. IMPRESSION: 1. This is a 45-year-old female with stable angina, possibly due to small vessel disease, aggravated by her hypertension. She is currently not a candidate for repeat bypass surgery and recently had a cardiac catheterization. It would suggest undergoing a nuclear stress test to further assess her current cardiac status. 2. In regard to her hypertension, given its poor control and given her stable angina, I would recommend considering adding a long-acting nitrate such as Imdur for blood pressure as well as daily chest pain. 3. In regard to her hyperlipidemia, poorly controlled, given her cardiac risk, consider increasing her atorvastatin to 80 mg daily. 4. Given her history of anxiety and depression, I would encourage primary team to address these issues either inpatient or outpatient as this may be contributing to her overall morbidity. Job ID: [id number] [facility]
[2020-09-28 05:02] LABS: Hemoglobin A1c 6.4 % (4.0-6.0)
[2020-09-28 05:16] LABS: Cardiac Risk 4.8 (Less than 4.5); Magnesium 1.6 mg/dL (1.6-2.6)
[2020-09-28] MEDS: Aspirin Chewable 81 MG TAB PO SCH (08:59)
[2020-09-28] MEDS: Enoxaparin Sodium 40 MG/0.4 ML SYRINGE SC SCH (08:59)
[2020-09-28] MEDS: Lisinopril 2.5 MG TAB PO SCH (08:59)
[2020-09-28] MEDS: TICAGRELOR 90 MG TABLET PO SCH ×2 (08:59→20:27)
[2020-09-28] MEDS: Carvedilol 3.125 MG TAB PO SCH ×2 (08:59→18:22)
[2020-09-28] MEDS ORDERED: Clopidogrel Bisulfate 75 MG TAB PO SCH (09:00)
[2020-09-28] MEDS ORDERED: Iopamidol 370 76% 50 ML VIAL FS ONE (09:15)
[2020-09-28] MEDS ORDERED: Iopamidol 370 76% 100 ML VIAL ONE (09:15)
[2020-09-28] MEDS ORDERED: Communication Order-Pharmacy FS SCH (09:45)
[2020-09-28] MEDS ORDERED: Midazolam HCl 2 mg/2 ml Vial ONE (12:18)
--- NOTE | 2020-09-28 12:35 | PDOC.HOSPP ---
- Subjective Encounter Date: 09/28/20 Encounter Time: 12:33 Subjective: Ms. Crockett was seen and evaluated today. This is a 45-year-old woman with underlying cardiac history including prior CABG and PCI admitted to the hospital for chest pain. She has been evaluated by cardiology with ongoing plans for repeat heart cath today. At this time she is chest pain-free. - Objective Vital Signs & Weight: Vital Signs (12 hours) Temp Pulse Resp BP Pulse Ox 09/28/20 11: 98.6 F 77 16 116/63 98 09/28/20 10:59 96 09/28/20 08:38 98.2 F 71 16 133/65 96 09/28/20 04:00 97.9 F 74 16 112/62 97 Weight Weight 167 lb 6.4 oz I&O: 09/27/20 09/28/20 09/29/20 06:59 06:59 06:59 Intake Total 750 Output Total 2 Balance 748 Result Diagrams: 09/27/20 01:49 09/27/20 01:49 Additional Labs: Accuchecks 09/28/20 09/28/20 09/27/20 10:44 05:51 20:13 POC Glucose 144 H 163 H 195 H 09/27/20 09/27/20 16:46 12:27 POC Glucose 117 H 133 H Radiology Reviewed by me: Yes EKG Reviewed by me: Yes Hospitalist ROS - Review of Systems Constitutional: reports: weakness, malaise Neurological: reports: weakness All other systems reviewed; all pertinent +/- noted in HPI/Subj - Medication Medications: Active Medications Generic Name Dose Route Start Last Admin Trade Name Miteshq PRN Reason Stop Dose Admin Aspirin 81 mg 09/27/20 09:00 09/28/20 08:59 Aspirin Chewable 81 Mg Tab PO 81 mg DAILY IMMANUEL Administration Atorvastatin Calcium 40 mg 09/27/20 21:00 09/27/20 21:41 Atorvastatin Calcium 40 Mg Tab PO 40 mg HS IMMANUEL Administration Carvedilol 3.125 mg 09/27/20 08:00 09/28/20 08:59 Carvedilol 3.125 Mg Tab PO 3.125 mg BID-WM IMMANUEL Administration Enoxaparin Sodium 40 mg 09/27/20 09:00 09/28/20 08:59 Enoxaparin Sodium 40 Mg/0.4 Ml Syringe SC 09/28/20 23:00 40 mg 0900 IMMANUEL Administration Isosorbide Mononitrate 30 mg 09/28/20 09:00 09/28/20 08:59 Isosorbide Mononitrate Er 30 Mg Tab PO 30 mg DAILY IMMANUEL Administration Lisinopril 2.5 mg 09/27/20 09:00 09/28/20 08:59 Lisinopril 2.5 Mg Tab PO 2.5 mg DAILY IMMANUEL Administration Nitroglycerin 0.4 mg 09/27/20 05:05 09/27/20 22:20 Nitroglycerin 0.4 Mg Tab (25 Tab Bottle) SL 0.4 mg Q5MIN PRN Administration Chest Pain Ticagrelor 90 mg 09/27/20 09:00 09/28/20 08:59 Ticagrelor 90 Mg Tablet PO 90 mg BID IMMANUEL Administration - Exam General Appearance: NAD, awake alert Eye: PERRL, anicteric sclera ENT: normocephalic atraumatic, no oropharyngeal lesions Neck: supple, symmetric, no JVD, no thyromegaly Heart: RRR, no murmur, no gallops, no rubs Respiratory: CTAB, no wheezes, no rales, no ronchi Gastrointestinal: soft, non-tender, non-distended, normal bowel sounds Extremities: no cyanosis, no clubbing Skin: normal turgor, no lesions Neurological: cranial nerve grossly intact, normal sensation to touch, no focal deficits Musculoskeletal: normal tone, normal strength Psychiatric: normal affect, normal behavior, A&O x 3 Hosp A/P (1) Atypical chest pain Code(s): R07.89 - OTHER CHEST PAIN Status: Acute (2) CAD (coronary artery disease) Code(s): I25.10 - ATHSCL HEART DISEASE OF [place] CORONARY ARTERY W/O ANG PCTRS Status: Acute (3) Chest pain Code(s): R07.9 - CHEST PAIN, UNSPECIFIED Status: Acute (4) DM2 (diabetes mellitus, type 2) Status: Chronic - Plan old records reviewed/req, plan discussed w/ family, DVT proph w/lovenox #1. Chest pain. Cardiology plans to do a heart cath today. Continue routine home medications. 2. Coronary artery disease. She is status post a CABG and PCI. She is on appropriate cardiac meds. 3. Hypertensive heart disease. Continue medicines as above. 4. Ischemic cardiomyopathy. Her most recent EF appears to be slightly depressed. She does follow-up with cardiology. Continue medicines as above.
[2020-09-28] MEDS ORDERED: Heparin 10,000 UNITS/ 10 ML VIAL ONE (13:19)
[2020-09-28] MEDS ORDERED: Nitroglycerin 100MG/250ML BOT 250 ML ONE (13:21)
[2020-09-28] MEDS: Atorvastatin Calcium 40 MG TAB PO SCH (20:27)
[2020-09-29 04:48] LABS: #Eosinphils 0.3 thou/uL (0.0-0.7); #Lymphocytes 1.8 thou/uL (1.20-3.40); #Monocytes 0.4 thou/uL (0.11-0.59); #Neutrophils 4.2 thou/uL (1.40-6.50); %Basophils 0.2 % (0.0-1.0); %Eosinophils 4.2 % (0.0-10.0); %Lymphocytes 26.9 % (21.0-51.0); %Monocytes 5.9 % (0.0-10.0); %Neutrophils 62.9 % (42.0-75.0); Hemoglobin 8.7 g/dL (12.0-16.0); Mean Corpuscular HGB CONC 31.4 g/dL (32.0-36.0); Mean Corpuscular Hemoglobin 26.3 pg (27.0-31.0); Mean Corpuscular Volume 83.8 fL (78.0-98.0); Mean Platelet Volume 7.9 fL (7.4-10.4); Platelet Count 260 thou/uL (130-400); RBC Distribution Width 14.6 % (11.5-14.5); Red Blood Cell (RBC) Count 3.29 mill/uL (4.20-5.40); White Blood Cell (WBC) Count 6.7 thou/uL (4.8-10.8)
[2020-09-29 05:06] LABS: ALT (SGPT) Less than 7 U/L (8-55); AST (SGOT) 7 U/L (5-34); Albumin 3.5 g/dL (3.5-5.0); Alkaline Phosphatase 70 U/L (40-110); Anion Gap 14 mmol/L (10-20); BUN (Urea Nitrogen) 12 mg/dL (7.0-18.7); Bilirubin, Total 0.4 mg/dL (0.2-1.2); Calc. Creatinine Clearance 116 mL/min (70-130); Calcium 8.6 mg/dL (7.8-10.44); Carbon Dioxide 22 mmol/L (22-29); Chloride 106 mmol/L (98-107); Estimated GFR-MDRD Greater than 90; Globulin 2.9 g/dL (2.4-3.5); Glucose 154 mg/dL (70-105); Potassium 3.5 mmol/L (3.5-5.1); Protein, Total 6.4 g/dL (6.0-8.3); Sodium 138 mmol/L (136-145)
[2020-09-29] MEDS: Carvedilol 3.125 MG TAB PO SCH (08:43)
[2020-09-29] MEDS: Aspirin Chewable 81 MG TAB PO SCH (08:43)
[2020-09-29] MEDS: Lisinopril 2.5 MG TAB PO SCH (08:43)
[2020-09-29] MEDS: TICAGRELOR 90 MG TABLET PO SCH (08:43)
--- NOTE | 2020-09-29 14:59 | PDOC.CPN ---
- Subjective Date: 09/29/20 Time: 08:00 Interval history: No overnight events, she denies any chest pain, shortness of breath, trouble breathing, dizziness, palpitations, or edema. She states she did not sleep well due to being anxious. She denies any pain at her right groin cardiac catheterization insertion site. - Review of Systems General: denies: fever/chills, weight/appetite/sleep changes, night sweats, fatigue Respiratory: denies: cough, congestion, shortness of breath, exercise intolerance Cardiovascular: denies: chest pain, palpitation, edema, paroxysmal nocturnal dyspnea, orthopnea Gastrointestinal: denies: nausea, vomiting, diarrhea, constipation, abd pain, GI bleeding Musculoskeletal: denies: pain, tenderness, stiffness, swelling, arth ritis/arthralgias Neurological: denies: numbness, syncope, seizure, weakness - Objective Allergies/Adverse Reactions: Allergies Allergy/AdvReac Type Severity Reaction Status Date / Time No Known Allergies Allergy Verified 11/06/19 12:48 Visit Medications: Current Medications Acetaminophen (Acetaminophen 325 Mg Tab) 650 mg PO Q4H PRN PRN Reason: Headache/Fever/Mild Pain (1-3) Acetaminophen (Acetaminophen 650 Mg Suppository) 650 mg CO Q4H PRN PRN Reason: Headache/Fever/Mild Pain (1-3) Hydrocodone Bitart/Acetaminophen (Hydrocodone/Acetaminophen 5/325 Mg Tablet) 1 tab PO Q4H PRN PRN Reason: Moderate Pain (4-6) Hydrocodone Bitart/Acetaminophen (Hydrocodone/Acetaminophen 5/325 Mg Tablet) 2 tab PO Q4H PRN PRN Reason: Severe Pain (7-10) Alprazolam (Alprazolam 0.25 Mg Tab) 0.25 mg PO TIDPRN PRN PRN Reason: Anxiety Aspirin (Aspirin Chewable 81 Mg Tab) 81 mg PO DAILY [facility] Last Admin: 09/29/20 08:43 Dose: 81 mg Documented by: Atorvastatin Calcium (Atorvastatin Calcium 40 Mg Tab) 40 mg PO HS [facility] Last Admin: 09/28/20 20:27 Dose: 40 mg Documented by: Carvedilol (Carvedilol 3.125 Mg Tab) 3.125 mg PO BID-[facility] Last Admin: 09/29/20 08:43 Dose: 3.125 mg Documented by: Dextrose/Water (Dextrose 50% Abboject 50 Ml Syringe) 25 gm SLOW IVP PRN PRN PRN Reason: Hypoglycemia Glucagon (Glucagon 1 Mg/Ml Vial) 1 mg IM PRN PRN PRN Reason: Hypoglycemia Dextrose/Water (D5w) 1,000 mls @ 0 mls/hr IV .Q0M PRN PRN Reason: Hypoglycemia Isosorbide Mononitrate (Isosorbide Mononitrate Er 30 Mg Tab) 30 mg PO DAILY [facility] Last Admin: 09/29/20 08:43 Dose: 30 mg Documented by: Lisinopril (Lisinopril 2.5 Mg Tab) 2.5 mg PO DAILY [facility] Last Admin: 09/29/20 08:43 Dose: 2.5 mg Documented by: Nitroglycerin (Nitroglycerin 0.4 Mg Tab (25 Tab Bottle)) 0.4 mg SL Q5MIN PRN PRN Reason: Chest Pain Last Admin: 09/27/20 22:20 Dose: 0.4 mg Documented by: Ondansetron HCl (Ondansetron Odt 4 Mg Tab) 4 mg PO Q6H PRN PRN Reason: Nausea/Vomiting Ondansetron HCl (Ondansetron Pf 4 Mg/2 Ml Vial) 4 mg IVP Q6H PRN PRN Reason: Nausea/Vomiting Ticagrelor (Ticagrelor 90 Mg Tablet) 90 mg PO BID [facility] Last Admin: 09/29/20 08:43 Dose: 90 mg Documented by: Vital Signs & Weight: Vital Signs Temp Pulse Pulse Pulse Resp BP BP 09/29/20 11:34 98.2 F 73 19 09/29/20 09:22 87 94 126/66 132/70 09/29/20 08:43 69 09/29/20 07:38 97.9 F 69 19 09/29/20 04:23 98.1 F 87 17 BP Pulse Ox 09/29/20 11:34 99/56 L 97 09/29/20 09:22 09/29/20 08:43 09/29/20 07:38 123/76 97 09/29/20 04:23 118/63 94 L Weight 167 lb 6.4 oz - Quality Measures Condition: Coronary Artery Disease CV meds: Beta Tita: Yes, SHIRA/ARB: Yes, Statin: Yes, ASA: Yes, Plavix/ Effient/Brilinta: Yes - Physical Exam General: alert & oriented x3, appears well, no apparent distress HEENT: mucus membranes moist, normocephaly Neck: supple neck, midline trachea, no JVD/HJR, no masses Cardiac: regular rate and rhythm, no murmur Lungs: clear to auscultation, normal breath sounds, no wheeze, rales, rhonchi Neuro: grossly intact, motor function intact, sensory function intact Abdomen: active bowel sounds, soft, non-tender, no masses Extremities: no cyanosis, no clubbing, no edema, 2+ femoral, 2+ popliteal, 2+ Posterior Tibial, 2+ Dorsalis Pedus Skin: clear, other (Tegaderm with gauze to right groin catheter insertion site, healing well, no oozing noted on bandage, no erythema, edema, hematoma to insertion site. dressing is CDI. no tenderness to palpation to right groin catheter insertion site. Healing well.) Musculoskeletal: normal range of motion, no pain, no fluid collection - Labs Result Diagrams: 09/29/20 04:17 09/29/20 04:17 Troponin/CKMB Troponin I 0.012 ng/mL (< 0.028) 09/27/20 08:14 - EKG Interpretation EKG Method: Telemetry EKG: sinus rhythm - Assessment/Plan Assessment/Plan: 1. Coronary artery disease: Patient presented to the ER for recurrent chest pain, she did have a 2.75 mm x 32 mm drug eluting stent placed to her LAD in 06/2020. 2. S/P Cardiac catheterization and PCI: Drug eluting stent to distal circumflex on 09/27/[address] Guthrie. She is doing well today, she denies any chest pain, shortness of breath, dizziness, palpitations, headache, edema today. Groin insertion site healing well. She is on Brillinta and Aspirin. She is also on Beta blockers, SHIRA inhibitors and statin therapy. We will continue these therap ies. 3. S/P CAB10/2019 SVG to RCA, SVG to OM1, 3. All grafts occluded. Surgery feels as if she is not a good candidate for re-do CABG. 3. History of hypertension: well controlled today. 4. Depression/ Anxiety: she states she is worried today about her anxiety. She would like to seek treatment for anxiety. She is ordered Xanax TID PRN. Advised to seek treatment with her Primary Care Provider. She is cleared for discharge from cardiology standpoint. She needs to remain on Brillinta and Aspirin. She will need to follow-up with cardiology in 2-4 weeks. Pt. seen and eval. by me. I agree with the a/P by the [employer]APPER SUPERVISOR. No complaints,no chest pain. RRR, chest clear. I will make an appointment for her in 2 weeks. She can be d/c'd on plavix instead of Brilinta. [email or web address]
--- NOTE | 2020-09-29 15:28 | PDOC.DS.DS ---
Provider - Provider Date of Admission: 09/27/20 02:48 Admitting Provider: Jaime White Consultations: Cardiology Primary Care Physician: DAVID FREITAS MD Course - Hospital Course Hospital Course: Ms. Crockett is a 45-year-old female whose medical history includes coronary disease with prior CABG, she also recently had some stent. She presented to the hospital with ongoing chest pain. She was admitted for further stabilization. She was seen during this visit by her professional housing consultant and she ultimately underwent heart cath. She ended up requiring a new stent I believe in her distal circumflex. She has remained chest pain-free since the stent. I saw and evalua steve her earlier today and she seems clinically stable and will be discharged home today. She will continue her routine cardiac medicines. Resuscitation Status: 09/27/20 05:05 Resuscitation Status Routine Resuscitation Status: FULL: Full Resuscitation - Labs Lab Results: 09/29/20 04:17 09/29/20 04:17 Abnormal Lab Results - Last 48 hrs 09/28/20 04:02: Triglycerides 173 H 09/28/20 04:02: Hemoglobin A1c 6.4 H 09/28/20 14:38: Activated Clotting Time 164 H 09/29/20 04:17: ALT Less than 7 L 09/29/20 04:17: RBC 3.29 L, Hgb 8.7 L, Hct 27.6 L, MCH 26.3 L, MCHC 31.4 L, RDW 14.6 H - Physical Exam Vitals: Vital Signs (12 hours) Temp Pulse Pulse Pulse Resp BP BP 09/29/20 11:34 98.2 F 73 19 09/29/20 09:22 87 94 126/66 132/70 09/29/20 08:43 69 09/29/20 07:38 97.9 F 69 19 09/29/20 04:23 98.1 F 87 17 BP Pulse Ox 09/29/20 11:34 99/56 L 97 09/29/20 09:22 09/29/20 08:43 09/29/20 07:38 123/76 97 09/29/20 04:23 118/63 94 L Weight Weight 167 lb 6.4 oz Physical Exam: The patient was seen and examined on the day of discharge. Problem - Problem (1) Atypical chest pain Code(s): R07.89 - OTHER CHEST PAIN Status: Acute (2) CAD (coronary artery disease) Code(s): I25.10 - ATHSCL HEART DISEASE OF [place] CORONARY ARTERY W/O ANG PCTRS Status: Acute (3) Chest pain Code(s): R07.9 - CHEST PAIN, UNSPECIFIED Status: Acute (4) DM2 (diabetes mellitus, type 2) Status: Chronic Qualifiers: Diabetes mellitus complication status: without complication - Time spent with Patient (mins): 30 Plan - Discharge Medications Prescriptions: Carvedilol [Coreg] 3.125 mg PO BID-WM #60 tab Home Medications: Medication Instructions Recorded Confirmed Type Aspirin Chewable [Aspirin Chewable 81 mg PO DAILY #30 tab 07/08/20 09/27/20 Rx Tablet] Atorvastatin Calcium 40 mg PO DAILY #30 tablet 07/08/20 09/27/20 Rx Carvedilol [Coreg] 3.125 mg PO BID-WM #60 tab 07/08/20 09/27/20 Rx Lisinopril [Zestril] 2.5 mg PO DAILY #30 tab 07/08/20 09/27/20 Rx Nitroglycerin 0.4 mg SL ASDIR PRN 09/27/20 09/27/20 History Carvedilol [Coreg] 3.125 mg PO BID-WM #60 tab 09/29/20 Rx Nitroglycerin [Nitrostat] 0.4 mg SL Q5MIN PRN tab 09/29/20 Rx Ticagrelor [Brilinta] 90 mg PO BID tab 09/29/20 Rx Allergies: No Known Allergies Allergy (Verified 11/06/19 12:48) - Discharge Instructions Activity:: Activity as Tolerated Nourishment:: Heart Healthy Diet Therapies:: Not Applicable Equipment/Supplies:: Not Applicable IV Therapy:: Not Applicable - Follow up Plan Referrals: Cardiac Rehab - [facility] [Outside] - 7 Days (We are awaiting an ok from Cardiology for you to return to Outpatient Cardiac Rehabilitation. Once we receive that, we will call you to return. If no f/u WITH IN ONE WEEK, please call us at [phone].) DAVID FREITAS MD [Primary Care Provider] - Disposition: HOME Quality - Care Measures CORE MEASURES:: AMI - Stroke/TIA Did you prescribe antithrombotic therapy?: Yes Did you prescribe anticoagulant for A Fib/Flutter?: No Specify reason for no DC anticoagulant: Treatment not indicated Did you prescribe a statin medication?: Yes
[2020-09-29 15:39] VITALS: BP 123/63; TEMP 98.5
--- NOTE | 2020-09-30 07:04 | EKG ---
Test Reason : Blood Pressure : / mmHG Vent. Rate : 071 BPM Atrial Rate : 071 BPM P-R Int : 158 ms QRS Dur : 086 ms QT Int : 420 ms P-R-T Axes : 077 035 -10 degrees QTc Int : 456 ms Normal sinus rhythm T wave abnormality, consider inferior ischemia Abnormal ECG When compared with ECG of 28-SEP-2020 18:23, (Unconfirmed) No significant change was found Confirmed by DR. Obdulia THOMAS (3) on 09/30/2020 7:04:28 AM Referred By: KATHI Confirmed By:DR. Obdulia THOMAS
--- NOTE | 2020-09-30 07:04 | EKG ---
Test Reason : STAT Blood Pressure : / mmHG Vent. Rate : 066 BPM Atrial Rate : 066 BPM P-R Int : 158 ms QRS Dur : 084 ms QT Int : 424 ms P-R-T Axes : 069 036 -12 degrees QTc Int : 444 ms Normal sinus rhythm with sinus arrhythmia Cannot rule out Anterior infarct , age undetermined T wave abnormality, consider inferior ischemia Abnormal ECG When compared with ECG of 27-SEP-2020 01:39, (Unconfirmed) No significant change was found Confirmed by DR. Obdulia THOMAS (3) on 09/30/2020 7:03:57 AM Referred By: KATHI Confirmed By:DR. Obdulia THOMAS
== END 2020-09-29 17:25 | disposition home or self-care (01) | DRG 247 ==
LOC: ERS 01:26 → ERHOLD 02:48 → OBSVTOIN 02:48 → UNDODISOB 03:38 → 2NO 15:29
PROVIDERS: ADMIT Internal Medicine; ATTEND Hospitalist
PROC: 027034Z Dilation of Coronary Artery, One Artery with Drug-eluting Intraluminal Device, Percutaneous Approach (ICD-10-PCS; principal; 2020-09-28)
PROC: 4A023N7 Measurement of Cardiac Sampling and Pressure, Left Heart, Percutaneous Approach (ICD-10-PCS; 2020-09-28)
PROC: B2111ZZ Fluoroscopy of Multiple Coronary Arteries using Low Osmolar Contrast (ICD-10-PCS; 2020-09-28)
PROC: B2151ZZ Fluoroscopy of Left Heart using Low Osmolar Contrast (ICD-10-PCS; 2020-09-28)
DX: R07.89 Other chest pain (principal); Z20.828 Contact with and (suspected) exposure to other viral communicable diseases; I10 Essential (primary) hypertension; E78.5 Hyperlipidemia, unspecified; E78.00 Pure hypercholesterolemia, unspecified; G43.909 Migraine, unspecified, not intractable, without status migrainosus; G51.0 Bell's palsy; F32.9 Major depressive disorder, single episode, unspecified; F17.210 Nicotine dependence, cigarettes, uncomplicated; E11.9 Type 2 diabetes mellitus without complications; F41.9 Anxiety disorder, unspecified; I25.5 Ischemic cardiomyopathy; I25.10 Atherosclerotic heart disease of native coronary artery without angina pectoris; Z79.82 Long term (current) use of aspirin; Z79.899 Other long term (current) drug therapy; I25.2 Old myocardial infarction
CPT/HCPCS: 36415; 36416; 71045; 80053; 80061; 83036; 83690; 83735; 84484; 84703; 85025; 85347; 87635; 92928; 92978; 93005; 93010; 93458; 93798; 94760; 96372; 99152; 99153; C1753; C1874; C9600; G0378; J1644; J1650; J2250; Q9967; U0003

== ENCOUNTER 2021-03-05 08:21 | Observation (INO) | payer SELFPAY ==
[2021-03-05 08:56] LABS: #Eosinphils 0.2 thou/uL (0.0-0.7); #Lymphocytes 1.7 thou/uL (1.20-3.40); #Monocytes 0.4 thou/uL (0.11-0.59); #Neutrophils 4.6 thou/uL (1.40-6.50); %Basophils 0.3 % (0.0-1.0); %Eosinophils 3.4 % (0.0-10.0); %Lymphocytes 24.9 % (21.0-51.0); %Monocytes 5.2 % (0.0-10.0); %Neutrophils 66.2 % (42.0-75.0); Hemoglobin 8.9 g/dL (12.0-16.0); Mean Corpuscular HGB CONC 30.5 g/dL (32.0-36.0); Mean Corpuscular Hemoglobin 22.3 pg (27.0-31.0); Mean Platelet Volume 8.7 fL (7.4-10.4); Platelet Count 285 thou/uL (130-400); RBC Distribution Width 17.6 % (11.5-14.5); Red Blood Cell (RBC) Count 3.97 mill/uL (4.20-5.40)
[2021-03-05] MEDS ORDERED: Lorazepam 1 MG TAB ONE (09:20)
[2021-03-05 09:21] LABS: ALT (SGPT) 8 U/L (8-55); AST (SGOT) 14 U/L (5-34); Albumin 4.3 g/dL (3.5-5.0); Alkaline Phosphatase 90 U/L (40-110); Anion Gap 13 mmol/L (10-20); BUN (Urea Nitrogen) 9 mg/dL (7.0-18.7); Bilirubin, Total 0.4 mg/dL (0.2-1.2); CRP (Inflammatory) Less than 0.50 mg/dL (= or < 0.5); Calc. Creatinine Clearance 0 mL/min (70-130); Calcium 9.4 mg/dL (7.8-10.44); Carbon Dioxide 23 mmol/L (22-29); Chloride 104 mmol/L (98-107); Globulin 3.5 g/dL (2.4-3.5); Glucose 199 mg/dL (70-105); Lipase 11 U/L (8-78); Potassium 4.2 mmol/L (3.5-5.1); Protein, Total 7.8 g/dL (6.0-8.3); Sodium 136 mmol/L (136-145)
[2021-03-05] MEDS ORDERED: carBAMazepine 100 mg Chewable Tablet PO SCH ×2 (09:30→21:00)
[2021-03-05 09:44] LABS: CKMB 0.5 ng/mL (0-6.6)
[2021-03-05] MEDS ORDERED: Aspirin 325 MG TAB ONE (09:55)
[2021-03-05 12:09] LABS: Troponin I 0.106 ng/mL (< 0.028)
[2021-03-05] MEDS ORDERED: Dextrose 5% in Water 1,000 ML IV PRN (13:37)
[2021-03-05] MEDS ORDERED: Acetaminophen 325 MG TAB PO PRN (13:37)
[2021-03-05] MEDS ORDERED: Nitroglycerin 0.4 MG TAB (25 Tab Bottle) SL PRN (13:37)
[2021-03-05] MEDS ORDERED: Dextrose 50% Abboject 50 ML SYRINGE SLOW IVP PRN (13:37)
[2021-03-05] MEDS ORDERED: HumaLOG 300 UNITS/3 ML VIAL SC PRN ×2 (13:37)
[2021-03-05 15:21] LABS: Troponin I 0.213 ng/mL (< 0.028)
[2021-03-05 19:16] LABS: Troponin I 0.324 ng/mL (< 0.028)
[2021-03-05 19:53] LABS: Amphetamine Not Detected (NotDetected); Barbiturates Screen Not Detected (NotDetected); Benzodiazepine Screen Not Detected (NotDetected); Cocaine Metabolite Screen Not Detected (NotDetected); Medtox Control Line Valid? VALID (VALID); Medtox Reader # READER 4; Methadone Not Detected (NotDetected); Methamphetamine Not Detected (NotDetected); Opiate Screen Not Detected (NotDetected); Oxycodone Screen Not Detected (NotDetected); Phencyclidine (PCP) Not Detected (NotDetected); THC/Cannabinoid Screen Not Detected (NotDetected); Tricyclic Screen Not Detected (NotDetected)
[2021-03-05 21:04] LABS: SARS-CoV-2 PCR by NAA Not Detected (NotDetected)
[2021-03-05 22:14] LABS: Troponin I 0.354 ng/mL (< 0.028)
[2021-03-05] MEDS ORDERED: Clopidogrel Bisulfate 75 MG TAB PO SCH (22:45)
[2021-03-06 05:07] LABS: #Eosinphils 0.2 thou/uL (0.0-0.7); #Lymphocytes 2.3 thou/uL (1.20-3.40); #Monocytes 0.4 thou/uL (0.11-0.59); #Neutrophils 2.7 thou/uL (1.40-6.50); %Basophils 0.2 % (0.0-1.0); %Lymphocytes 40.8 % (21.0-51.0); %Monocytes 7.5 % (0.0-10.0); %Neutrophils 48.5 % (42.0-75.0); Hemoglobin 8.4 g/dL (12.0-16.0); Mean Corpuscular HGB CONC 30.6 g/dL (32.0-36.0); Mean Corpuscular Hemoglobin 22.3 pg (27.0-31.0); Platelet Count 272 thou/uL (130-400); RBC Distribution Width 17.7 % (11.5-14.5); Red Blood Cell (RBC) Count 3.76 mill/uL (4.20-5.40); White Blood Cell (WBC) Count 5.5 thou/uL (4.8-10.8)
[2021-03-06 05:24] LABS: Anion Gap 12 mmol/L (10-20); BUN (Urea Nitrogen) 12 mg/dL (7.0-18.7); Calc. Creatinine Clearance 107 mL/min (70-130); Calcium 9.4 mg/dL (7.8-10.44); Carbon Dioxide 24 mmol/L (22-29); Cardiac Risk 6.2 (Less than 4.5); Chloride 104 mmol/L (98-107); Cholesterol 198 mg/dl (< 200 Desired); Glucose 190 mg/dL (70-105); HDL Cholesterol 32 mg/dL (>60 Neg Risk); LDL Cholesterol, Calculated 125 mg/dL; Sodium 136 mmol/L (136-145); Triglycerides 205 mg/dL (Less than 150)
[2021-03-06] MEDS: Aspirin 81 mg Enteric Coated Tablet PO SCH (08:13)
[2021-03-06] MEDS: carBAMazepine 100 mg Chewable Tablet PO SCH ×2 (08:13→16:22)
[2021-03-06 09:38] LABS: Troponin I 0.272 ng/mL (< 0.028)
[2021-03-06] MEDS ORDERED: Ferrous Sulfate 325 MG TAB PO SCH (11:00)
[2021-03-06 16:22] VITALS: BMI 30.1
[2021-03-06] MEDS ORDERED: Atorvastatin Calcium 40 MG TAB PO SCH (21:00)
[2021-03-06] MEDS ORDERED: Ibuprofen 200 MG TAB PO PRN (21:44)
[2021-03-07] MEDS ORDERED: Nitroglycerin 0.4 MG TAB (25 Tab Bottle) ONE (07:30)
[2021-03-07 07:35] VITALS: TEMP 97.2
[2021-03-07] MEDS ORDERED: Ferrous Sulfate 325 MG TAB PO SCH (08:00)
[2021-03-07] MEDS: Aspirin 81 mg Enteric Coated Tablet PO SCH (09:25)
[2021-03-07] MEDS: carBAMazepine 100 mg Chewable Tablet PO SCH (09:26)
[2021-03-07 09:45] VITALS: BP 121/71
[2021-03-07] MEDS ORDERED: Carvedilol 3.125 MG TAB PO SCH (17:00)
[2021-03-07] MEDS ORDERED: Atorvastatin Calcium 40 MG TAB PO SCH (21:00)
[2021-03-08] MEDS ORDERED: Lisinopril 2.5 MG TAB PO SCH (09:00)
[2021-03-08] MEDS ORDERED: Clopidogrel Bisulfate 75 MG TAB PO SCH (09:00)
== END 2021-03-07 11:20 | disposition home or self-care (01) ==
LOC: ERS 08:21 → ERHOLD 10:02 → 2SW 14:10
PROVIDERS: ADMIT Family Medicine; ATTEND Internal Medicine
DX: G50.0 Trigeminal neuralgia (principal); I24.8 Other forms of acute ischemic heart disease; E78.5 Hyperlipidemia, unspecified; I10 Essential (primary) hypertension; E11.9 Type 2 diabetes mellitus without complications; I25.2 Old myocardial infarction; I25.10 Atherosclerotic heart disease of native coronary artery without angina pectoris; E78.00 Pure hypercholesterolemia, unspecified; F17.290 Nicotine dependence, other tobacco product, uncomplicated; G43.909 Migraine, unspecified, not intractable, without status migrainosus; D50.9 Iron deficiency anemia, unspecified; I42.9 Cardiomyopathy, unspecified; Z79.02 Long term (current) use of antithrombotics/antiplatelets; Z79.82 Long term (current) use of aspirin; Z79.899 Other long term (current) drug therapy; Z95.1 Presence of aortocoronary bypass graft; Z95.5 Presence of coronary angioplasty implant and graft; Z20.822 Contact with and (suspected) exposure to COVID-19
CPT/HCPCS: 36415; 36416; 71045; 80048; 80053; 80061; 80306; 82553; 83690; 84484; 85025; 85652; 86140; 87635; 93005; 94760; G0378; U0003; U0005

== ENCOUNTER 2021-11-19 07:49 | Emergency (ER) | payer SELFPAY ==
[2021-11-19 08:41] LABS: #Eosinphils 0.2 thou/uL (0.0-0.7); #Lymphocytes 1.7 thou/uL (1.20-3.40); #Monocytes 0.3 thou/uL (0.11-0.59); #Neutrophils 1.5 thou/uL (1.40-6.50); %Basophils 0.2 % (0.0-1.0); %Eosinophils 4.4 % (0.0-10.0); %Lymphocytes 44.8 % (21.0-51.0); %Monocytes 9.1 % (0.0-10.0); %Neutrophils 41.4 % (42.0-75.0); Hemoglobin 10.2 g/dL (12.0-16.0); Mean Corpuscular HGB CONC 31.7 g/dL (32.0-36.0); Mean Corpuscular Hemoglobin 27.9 pg (27.0-31.0); Mean Corpuscular Volume 87.9 fL (78.0-98.0); Mean Platelet Volume 7.4 fL (7.4-10.4); Platelet Count 241 thou/uL (130-400); RBC Distribution Width 17.2 % (11.5-14.5); Red Blood Cell (RBC) Count 3.66 mill/uL (4.20-5.40); White Blood Cell (WBC) Count 3.7 thou/uL (4.8-10.8)
[2021-11-19] MEDS ORDERED: Aspirin Chewable 81 MG TAB ONE (09:00)
[2021-11-19] MEDS ORDERED: Nitroglycerin 0.4 MG TAB 1 EACH ONE (09:00)
[2021-11-19 09:13] LABS: ALT (SGPT) 8 U/L (8-55); AST (SGOT) 14 U/L (5-34); Albumin 4.1 g/dL (3.5-5.0); Alkaline Phosphatase 69 U/L (40-110); Anion Gap 14 mmol/L (10-20); BUN (Urea Nitrogen) 10 mg/dL (7.0-18.7); Bilirubin, Total 0.3 mg/dL (0.2-1.2); Calc. Creatinine Clearance 0 mL/min (70-130); Calcium 8.9 mg/dL (7.8-10.44); Carbon Dioxide 21 mmol/L (22-29); Chloride 106 mmol/L (98-107); Globulin 3.7 g/dL (2.4-3.5); Glucose 135 mg/dL (70-105); Potassium 4.2 mmol/L (3.5-5.1); Protein, Total 7.8 g/dL (6.0-8.3); Sodium 137 mmol/L (136-145)
[2021-11-19 09:48] LABS: BHCG - Serum Negative (NEGATIVE); Pregs Control Background? CLEAR/WHITE (CLR/WHITE); Pregs Control Bar Appear? YES (CONTROL BAR)
[2021-11-19] MEDS ORDERED: Iopamidol-370 76% 500 ML 1 ML ONE (10:29)
== END 2021-11-19 10:45 | disposition home or self-care (01) ==
LOC: ERS 07:49
DX: R07.89 Other chest pain (principal); E11.9 Type 2 diabetes mellitus without complications; I10 Essential (primary) hypertension; E78.5 Hyperlipidemia, unspecified; E78.00 Pure hypercholesterolemia, unspecified; G43.909 Migraine, unspecified, not intractable, without status migrainosus; F17.290 Nicotine dependence, other tobacco product, uncomplicated; Z79.82 Long term (current) use of aspirin; Z79.02 Long term (current) use of antithrombotics/antiplatelets; Z79.899 Other long term (current) drug therapy
CPT/HCPCS: 71045; 71275; 80053; 83880; 84484; 84703; 85025; 85379; 93005; Q9967

== ENCOUNTER 2022-03-30 02:09 | Inpatient (IN) | payer SELFPAY ==
[2022-03-30 02:56] LABS: #Basophils 0.1 thou/uL (0.0-0.2); #Eosinphils 0.5 thou/uL (0.0-0.7); #Lymphocytes 1.7 thou/uL (1.20-3.40); #Monocytes 0.4 thou/uL (0.11-0.59); #Neutrophils 2.5 thou/uL (1.40-6.50); %Eosinophils 9.5 % (0.0-10.0); %Lymphocytes 33.6 % (21.0-51.0); %Monocytes 7.8 % (0.0-10.0); %Neutrophils 48.1 % (42.0-75.0); Mean Corpuscular HGB CONC 32.2 g/dL (32.0-36.0); Mean Corpuscular Hemoglobin 28.5 pg (27.0-31.0); Mean Corpuscular Volume 88.5 fL (78.0-98.0); Platelet Count 217 thou/uL (130-400); RBC Distribution Width 21.2 % (11.5-14.5); White Blood Cell (WBC) Count 5.2 thou/uL (4.8-10.8)
[2022-03-30 03:17] LABS: ALT (SGPT) 10 U/L (8-55); AST (SGOT) 15 U/L (5-34); Alkaline Phosphatase 77 U/L (40-110); Anion Gap 12 mmol/L (10-20); BUN (Urea Nitrogen) 9 mg/dL (7.0-18.7); Bilirubin, Total 0.3 mg/dL (0.2-1.2); Calc. Creatinine Clearance 0 mL/min (70-130); Calcium 8.9 mg/dL (7.8-10.44); Carbon Dioxide 24 mmol/L (22-29); Chloride 106 mmol/L (98-107); Globulin 3.5 g/dL (2.4-3.5); Glucose 163 mg/dL (70-105); Potassium 3.5 mmol/L (3.5-5.1); Protein, Total 7.5 g/dL (6.0-8.3); Sodium 138 mmol/L (136-145)
[2022-03-30] MEDS ORDERED: Nitroglycerin 0.4 MG TAB 1 EACH ONE (03:30)
[2022-03-30] MEDS ORDERED: Aspirin Chewable 81 MG TAB ONE (03:30)
[2022-03-30] MEDS ORDERED: Nitroglycerin 2% Ointment 1 INCH/1 GM Packet ONE (03:30)
[2022-03-30] MEDS ORDERED: Enoxaparin Sodium 80 MG/0.8 ML SYRINGE ONE (04:16)
[2022-03-30] MEDS ORDERED: Acetaminophen 325 MG TAB PO PRN (04:48)
[2022-03-30] MEDS ORDERED: Ondansetron PF 4 MG/2 ML Vial IVP PRN (04:48)
[2022-03-30] MEDS ORDERED: Nitroglycerin 0.4 MG TAB (25 Tab Bottle) SL PRN (04:48)
[2022-03-30 05:26] LABS: Hemoglobin A1c 5.6 % (4.0-6.0)
[2022-03-30] MEDS: Carvedilol 3.125 MG TAB PO SCH ×2 (08:45→18:20)
[2022-03-30] MEDS ORDERED: Loratadine 10 MG TAB PO PRN (09:17)
[2022-03-30] MEDS ORDERED: HYDROcodone/Acetaminophen 5/325 mg Tablet PO PRN (09:17)
[2022-03-30] MEDS ORDERED: GUAIFENESIN SF SOLN 200 MG/10 ML UDCUP PO PRN (09:17)
[2022-03-30] MEDS ORDERED: Calcium Carbonate 500 MG ChewTAB PO PRN (09:17)
[2022-03-30] MEDS ORDERED: Moisturizing Cream (Eucerin) 113 GM JAR TOP PRN (09:17)
[2022-03-30] MEDS ORDERED: Loperamide HCl 2 MG CAP PO PRN (09:17)
[2022-03-30] MEDS ORDERED: Cepastat Lozenges 1 LOZ PO PRN (09:17)
[2022-03-30] MEDS ORDERED: Artificial Tear Sol 15 ML BOT EA EYE PRN (09:17)
[2022-03-30] MEDS ORDERED: hydrALAZINE 20 MG/ML VIAL SLOW IVP PRN (09:17)
[2022-03-30] MEDS ORDERED: Zolpidem Tartrate 5 MG TAB PO PRN (09:17)
[2022-03-30 15:16] LABS: Troponin I 0.013 ng/mL (< 0.028)
[2022-03-30 18:11] VITALS: BMI 29.0
[2022-03-30] MEDS: Clopidogrel Bisulfate 75 MG TAB PO SCH (18:15)
[2022-03-30] MEDS: Famotidine 20 MG TAB PO SCH ×2 (18:15→21:52)
[2022-03-30 19:05] LABS: Troponin I 0.013 ng/mL (< 0.028)
[2022-03-30] MEDS: Atorvastatin Calcium 40 MG TAB PO SCH (21:52)
[2022-03-30 21:53] LABS: Troponin I Less than 0.010 ng/mL (< 0.028)
[2022-03-31 04:56] LABS: #Basophils 0.1 thou/uL (0.0-0.2); #Eosinphils 0.4 thou/uL (0.0-0.7); #Lymphocytes 2.1 thou/uL (1.20-3.40); #Monocytes 0.4 thou/uL (0.11-0.59); %Basophils 1.2 % (0.0-1.0); %Eosinophils 7.7 % (0.0-10.0); %Lymphocytes 42.4 % (21.0-51.0); %Monocytes 7.8 % (0.0-10.0); %Neutrophils 40.9 % (42.0-75.0); Hemoglobin 11.7 g/dL (12.0-16.0); Mean Corpuscular Hemoglobin 27.6 pg (27.0-31.0); Mean Corpuscular Volume 89.1 fL (78.0-98.0); Mean Platelet Volume 8.3 fL (7.4-10.4); Platelet Count 199 thou/uL (130-400); RBC Distribution Width 21.1 % (11.5-14.5); Red Blood Cell (RBC) Count 4.25 mill/uL (4.20-5.40); White Blood Cell (WBC) Count 4.9 thou/uL (4.8-10.8)
[2022-03-31 05:18] LABS: Anion Gap 11 mmol/L (10-20); BUN (Urea Nitrogen) 10 mg/dL (7.0-18.7); Calc. Creatinine Clearance 111 mL/min (70-130); Carbon Dioxide 26 mmol/L (22-29); Cardiac Risk 5.6 (Less than 4.5); Chloride 104 mmol/L (98-107); Cholesterol 208 mg/dl (< 200 Desired); Glucose 132 mg/dL (70-105); HDL Cholesterol 37 mg/dL (>60 Neg Risk); LDL Cholesterol, Calculated 148 mg/dL; Potassium 3.8 mmol/L (3.5-5.1); Sodium 137 mmol/L (136-145); Triglycerides 115 mg/dL (Less than 150)
[2022-03-31] MEDS: Aspirin 81 mg Enteric Coated Tablet PO SCH (08:14)
[2022-03-31] MEDS: Famotidine 20 MG TAB PO SCH ×2 (08:14→21:00)
[2022-03-31] MEDS: Clopidogrel Bisulfate 75 MG TAB PO SCH (08:15)
[2022-03-31] MEDS: Carvedilol 3.125 MG TAB PO SCH ×2 (12:52→17:58)
[2022-03-31] MEDS: Enoxaparin Sodium 40 MG/0.4 ML SYRINGE SC SCH (12:55)
[2022-03-31] MEDS ORDERED: ADENOSINE 60 MG/20 ML VIAL ONE (13:53)
[2022-03-31] MEDS ORDERED: Communication Order-Pharmacy FS SCH (15:00)
[2022-03-31] MEDS: Atorvastatin Calcium 40 MG TAB PO SCH (21:00)
[2022-03-31] MEDS: Isosorbide Dinitrate 20 MG TAB PO SCH (21:00)
[2022-04-01 05:18] LABS: #Eosinphils 0.4 thou/uL (0.0-0.7); #Lymphocytes 2.1 thou/uL (1.20-3.40); #Monocytes 0.4 thou/uL (0.11-0.59); #Neutrophils 2.7 thou/uL (1.40-6.50); %Basophils 0.2 % (0.0-1.0); %Eosinophils 7.2 % (0.0-10.0); %Lymphocytes 37.5 % (21.0-51.0); %Monocytes 6.3 % (0.0-10.0); %Neutrophils 48.8 % (42.0-75.0); Hemoglobin 11.3 g/dL (12.0-16.0); Mean Corpuscular Hemoglobin 27.7 pg (27.0-31.0); Mean Corpuscular Volume 89.3 fL (78.0-98.0); Mean Platelet Volume 8.2 fL (7.4-10.4); Platelet Count 186 thou/uL (130-400); RBC Distribution Width 20.6 % (11.5-14.5); Red Blood Cell (RBC) Count 4.09 mill/uL (4.20-5.40); White Blood Cell (WBC) Count 5.6 thou/uL (4.8-10.8)
[2022-04-01 05:43] LABS: Anion Gap 13 mmol/L (10-20); BUN (Urea Nitrogen) 11 mg/dL (7.0-18.7); Calc. Creatinine Clearance 107 mL/min (70-130); Calcium 9.3 mg/dL (7.8-10.44); Carbon Dioxide 25 mmol/L (22-29); Chloride 102 mmol/L (98-107); Glucose 128 mg/dL (70-105); Potassium 3.9 mmol/L (3.5-5.1); Sodium 136 mmol/L (136-145)
[2022-04-01] MEDS: Famotidine 20 MG TAB PO SCH ×2 (08:21→21:01)
[2022-04-01] MEDS: Carvedilol 3.125 MG TAB PO SCH ×2 (08:21→16:37)
[2022-04-01] MEDS: Clopidogrel Bisulfate 75 MG TAB PO SCH (08:21)
[2022-04-01] MEDS: Aspirin 81 mg Enteric Coated Tablet PO SCH (08:21)
[2022-04-01] MEDS: Isosorbide Dinitrate 20 MG TAB PO SCH ×2 (08:21→21:02)
[2022-04-01] MEDS: Enoxaparin Sodium 40 MG/0.4 ML SYRINGE SC SCH (08:24)
[2022-04-01] MEDS: Atorvastatin Calcium 40 MG TAB PO SCH (21:02)
[2022-04-02] MEDS: Enoxaparin Sodium 40 MG/0.4 ML SYRINGE SC SCH (08:52)
[2022-04-02] MEDS: Aspirin 81 mg Enteric Coated Tablet PO SCH (08:52)
[2022-04-02] MEDS: Famotidine 20 MG TAB PO SCH ×2 (08:53→19:58)
[2022-04-02] MEDS: Clopidogrel Bisulfate 75 MG TAB PO SCH (08:53)
[2022-04-02] MEDS: Isosorbide Dinitrate 20 MG TAB PO SCH ×2 (08:53→19:58)
[2022-04-02] MEDS: Carvedilol 3.125 MG TAB PO SCH ×2 (08:53→16:36)
[2022-04-02] MEDS: Atorvastatin Calcium 40 MG TAB PO SCH (19:58)
[2022-04-03] MEDS: Aspirin 81 mg Enteric Coated Tablet PO SCH (05:32)
[2022-04-03] MEDS: Famotidine 20 MG TAB PO SCH ×2 (05:32→21:38)
[2022-04-03] MEDS: Clopidogrel Bisulfate 75 MG TAB PO SCH (05:32)
[2022-04-03] MEDS: Isosorbide Dinitrate 20 MG TAB PO SCH ×2 (05:32→21:33)
[2022-04-03] MEDS: Carvedilol 3.125 MG TAB PO SCH ×2 (05:32→16:35)
[2022-04-03] MEDS ORDERED: Iopamidol 370 76% 100 ML VIAL ONE (08:09)
[2022-04-03] MEDS ORDERED: Midazolam HCl 2 mg/2 ml Vial ONE (12:29)
[2022-04-03] MEDS ORDERED: Acetaminophen/Codeine 30-300mg Tablet PO PRN ×4 (13:16→13:28)
[2022-04-03] MEDS ORDERED: Sodium Chloride 0.9% 200 ML IV PRN ×2 (13:16→13:28)
[2022-04-03] MEDS ORDERED: Nitroglycerin 0.4 MG TAB (25 Tab Bottle) SL PRN ×2 (13:16→13:28)
[2022-04-03] MEDS: Atorvastatin Calcium 40 MG TAB PO SCH (21:33)
[2022-04-04 05:25] LABS: #Eosinphils 0.4 thou/uL (0.0-0.7); #Lymphocytes 2.1 thou/uL (1.20-3.40); #Monocytes 0.4 thou/uL (0.11-0.59); #Neutrophils 3.3 thou/uL (1.40-6.50); %Basophils 0.8 % (0.0-1.0); %Eosinophils 6.8 % (0.0-10.0); %Lymphocytes 33.5 % (21.0-51.0); %Monocytes 6.1 % (0.0-10.0); %Neutrophils 52.8 % (42.0-75.0); Hemoglobin 12.4 g/dL (12.0-16.0); Mean Corpuscular Hemoglobin 28.2 pg (27.0-31.0); Mean Platelet Volume 8.3 fL (7.4-10.4); Platelet Count 200 thou/uL (130-400); RBC Distribution Width 20.5 % (11.5-14.5); White Blood Cell (WBC) Count 6.2 thou/uL (4.8-10.8)
[2022-04-04 05:54] LABS: Anion Gap 12 mmol/L (10-20); BUN (Urea Nitrogen) 13 mg/dL (7.0-18.7); Calc. Creatinine Clearance 101 mL/min (70-130); Calcium 9.1 mg/dL (7.8-10.44); Carbon Dioxide 25 mmol/L (22-29); Chloride 104 mmol/L (98-107); Glucose 127 mg/dL (70-105); Magnesium 1.7 mg/dL (1.6-2.6); Potassium 3.9 mmol/L (3.5-5.1); Sodium 137 mmol/L (136-145)
[2022-04-04] MEDS: Aspirin 81 mg Enteric Coated Tablet PO SCH (08:51)
[2022-04-04] MEDS: Isosorbide Dinitrate 20 MG TAB PO SCH (08:51)
[2022-04-04] MEDS: Carvedilol 3.125 MG TAB PO SCH (08:52)
[2022-04-04] MEDS: Clopidogrel Bisulfate 75 MG TAB PO SCH (08:52)
[2022-04-04] MEDS: Famotidine 20 MG TAB PO SCH (08:56)
[2022-04-04] MEDS ORDERED: Electrolyte Replacement Protocol 1 EACH FS SCH (15:00)
[2022-04-04 15:25] VITALS: BP 145/73; TEMP 97.7
[2022-04-04] MEDS ORDERED: Electrolyte Replacement Protocol FS PRN (15:30)
[2022-04-04] MEDS ORDERED: Magnesium 2 GM/50 ML(in water) 2 GM in Premix Bag 1 BAG IVPB SCH (21:00)
[2022-04-05] MEDS ORDERED: Empagliflozin 10 MG TAB PO SCH (09:00)
== END 2022-04-04 18:20 | disposition home or self-care (01) | DRG 287 ==
LOC: ERS 02:09 → ERHOLD 04:16 → 2SW 04:24 → OBSVTOIN 03-31 13:09
PROVIDERS: ADMIT Internal Medicine; ATTEND Internal Medicine
PROC: 4A023N7 Measurement of Cardiac Sampling and Pressure, Left Heart, Percutaneous Approach (ICD-10-PCS; principal; 2022-04-03)
PROC: B2111ZZ Fluoroscopy of Multiple Coronary Arteries using Low Osmolar Contrast (ICD-10-PCS; 2022-04-03)
PROC: B2151ZZ Fluoroscopy of Left Heart using Low Osmolar Contrast (ICD-10-PCS; 2022-04-03)
DX: T82.855A Stenosis of coronary artery stent, initial encounter (principal); I25.110 Atherosclerotic heart disease of native coronary artery with unstable angina pectoris; I50.22 Chronic systolic (congestive) heart failure; Z20.822 Contact with and (suspected) exposure to COVID-19; T82.858A Stenosis of other vascular prosthetic devices, implants and grafts, initial encounter; E78.5 Hyperlipidemia, unspecified; E11.9 Type 2 diabetes mellitus without complications; F17.210 Nicotine dependence, cigarettes, uncomplicated; G51.0 Bell's palsy; I11.0 Hypertensive heart disease with heart failure; I34.0 Nonrheumatic mitral (valve) insufficiency; I25.5 Ischemic cardiomyopathy; Y83.1 Surgical operation with implant of artificial internal device as the cause of abnormal reaction of the patient, or of later complication, without mention of misadventure at the time of the procedure; Z95.1 Presence of aortocoronary bypass graft; Z95.5 Presence of coronary angioplasty implant and graft; Z79.899 Other long term (current) drug therapy; Z79.02 Long term (current) use of antithrombotics/antiplatelets; Z79.82 Long term (current) use of aspirin; Z91.14 Patient's other noncompliance with medication regimen; Z71.6 Tobacco abuse counseling
CPT/HCPCS: 36415; 71045; 78452; 80048; 80053; 80061; 83036; 83735; 84484; 85025; 93005; 93017; 93306; 93458; 93798; 94760; 96372; 99152; 99153; A9500; G0378; J0153; J1650; J2250; Q9967; U0003; U0005

== ENCOUNTER 2022-05-29 02:15 | Observation (INO) | payer SELFPAY ==
[2022-05-29] MEDS ORDERED: Morphine 4 MG/ML VIAL ONE (02:43)
[2022-05-29] MEDS ORDERED: Aspirin 325 MG TAB ONE (02:43)
[2022-05-29] MEDS ORDERED: Ondansetron PF 4 MG/2 ML Vial ONE (02:43)
[2022-05-29] MEDS ORDERED: Nitroglycerin 2% Ointment 1 INCH/1 GM Packet ONE ×2 (02:56→08:39)
[2022-05-29 03:17] LABS: #Eosinphils 0.2 thou/uL (0.0-0.7); #Monocytes 0.3 thou/uL (0.11-0.59); #Neutrophils 2.9 thou/uL (1.40-6.50); %Basophils 0.7 % (0.0-1.0); %Eosinophils 3.9 % (0.0-10.0); %Lymphocytes 36.8 % (21.0-51.0); %Monocytes 5.9 % (0.0-10.0); %Neutrophils 52.8 % (42.0-75.0); Hemoglobin 12.7 g/dL (12.0-16.0); Mean Corpuscular HGB CONC 33.7 g/dL (32.0-36.0); Mean Corpuscular Hemoglobin 32.4 pg (27.0-31.0); Mean Corpuscular Volume 96.2 fL (78.0-98.0); Mean Platelet Volume 8.8 fL (7.4-10.4); Platelet Count 206 thou/uL (130-400); RBC Distribution Width 16.5 % (11.5-14.5); Red Blood Cell (RBC) Count 3.91 mill/uL (4.20-5.40); White Blood Cell (WBC) Count 5.4 thou/uL (4.8-10.8)
[2022-05-29 03:36] LABS: ALT (SGPT) 10 U/L (8-55); AST (SGOT) 12 U/L (5-34); Albumin 4.6 g/dL (3.5-5.0); Alkaline Phosphatase 88 U/L (40-110); Anion Gap 13 mmol/L (10-20); BUN (Urea Nitrogen) 9 mg/dL (7.0-18.7); Bilirubin, Total 0.3 mg/dL (0.2-1.2); Calc. Creatinine Clearance 0 mL/min (70-130); Calcium 9.7 mg/dL (7.8-10.44); Carbon Dioxide 26 mmol/L (22-29); Chloride 104 mmol/L (98-107); Estimated GFR 95; Globulin 3.5 g/dL (2.4-3.5); Glucose 149 mg/dL (70-105); Potassium 3.6 mmol/L (3.5-5.1); Protein, Total 8.1 g/dL (6.0-8.3); Sodium 139 mmol/L (136-145)
[2022-05-29 03:58] LABS: CKMB 1.2 ng/mL (0-6.6)
[2022-05-29] MEDS ORDERED: HumaLOG 300 UNITS/3 ML VIAL SC PRN ×2 (05:13)
[2022-05-29] MEDS ORDERED: Guaifenesin DM 100-10/5 ML UDCUP PO PRN (05:13)
[2022-05-29] MEDS ORDERED: Bisacodyl 10 MG SUPP PR PRN (05:13)
[2022-05-29] MEDS ORDERED: Acetaminophen 650 MG Suppository PR PRN (05:13)
[2022-05-29] MEDS ORDERED: Bisacodyl 5 MG TAB PO PRN (05:13)
[2022-05-29] MEDS ORDERED: Dextrose 5% in Water 1,000 ML IV PRN (05:13)
[2022-05-29] MEDS ORDERED: Dextrose 50% Abboject 50 ML SYRINGE SLOW IVP PRN (05:13)
[2022-05-29] MEDS ORDERED: Ondansetron PF 4 MG/2 ML Vial IVP PRN (05:13)
[2022-05-29] MEDS ORDERED: Zolpidem Tartrate 5 MG TAB PO PRN (05:13)
[2022-05-29] MEDS ORDERED: Ondansetron ODT 4 MG TAB PO PRN (05:13)
[2022-05-29] MEDS ORDERED: Senokot S 8.6-50 MG TAB PO PRN (05:13)
[2022-05-29 07:41] LABS: Troponin I 0.421 ng/mL (< 0.028)
[2022-05-29] MEDS ORDERED: Famotidine 20 MG TAB ONE (08:39)
[2022-05-29] MEDS ORDERED: Aspirin 81 mg Enteric Coated Tablet ONE (08:39)
[2022-05-29] MEDS ORDERED: Enoxaparin Sodium 40 MG/0.4 ML SYRINGE ONE (08:39)
[2022-05-29] MEDS ORDERED: Famotidine/PF 20 mg/2ml Vial ONE (08:39)
[2022-05-29] MEDS ORDERED: Enoxaparin Sodium 40 MG/0.4 ML SYRINGE SC SCH (09:00)
[2022-05-29] MEDS: Famotidine/PF 20 mg/2ml Vial SLOW IVP SCH ×2 (09:08→19:50)
[2022-05-29] MEDS: Aspirin Chewable 81 MG TAB PO SCH (09:08)
[2022-05-29] MEDS: Famotidine 20 MG TAB PO SCH ×2 (09:08→20:22)
[2022-05-29] MEDS ORDERED: Enoxaparin Sodium 80 MG/0.8 ML SYRINGE ONE (09:16)
[2022-05-29 09:54] LABS: Troponin I 0.573 ng/mL (< 0.028)
[2022-05-29] MEDS: Nitroglycerin 2% Ointment 1 INCH/1 GM Packet TOP SCH ×3 (11:35→21:27)
[2022-05-29] MEDS ORDERED: Nitroglycerin 0.4 MG TAB (25 Tab Bottle) SL PRN (15:08)
[2022-05-29] MEDS ORDERED: Communication Order-Pharmacy FS SCH (16:30)
[2022-05-29 16:36] VITALS: BMI 29.9
[2022-05-29 17:18] LABS: Critical Call Chem Troponin I RESULT DECREASING; Troponin I 0.438 ng/mL (< 0.028)
[2022-05-29] MEDS ORDERED: Clopidogrel Bisulfate 300 MG TAB PO SCH (17:30)
[2022-05-29] MEDS: Carvedilol 6.25 MG TAB PO SCH (17:32)
[2022-05-29] MEDS: carBAMazepine 100 mg Chewable Tablet PO SCH (20:21)
[2022-05-29] MEDS: Isosorbide Dinitrate 20 MG TAB PO SCH (20:22)
[2022-05-29] MEDS ORDERED: Enoxaparin Sodium 80 MG/0.8 ML SYRINGE SC SCH (21:00)
[2022-05-29] MEDS ORDERED: Atorvastatin Calcium 40 MG TAB PO SCH (21:00)
[2022-05-30 01:22] LABS: SARS-CoV-2 NAA Rapid Test Not Detected (NotDetected)
[2022-05-30] MEDS: Famotidine/PF 20 mg/2ml Vial SLOW IVP SCH (04:28)
[2022-05-30 04:59] LABS: Anion Gap 13 mmol/L (10-20); BUN (Urea Nitrogen) 12 mg/dL (7.0-18.7); Calc. Creatinine Clearance 111 mL/min (70-130); Calcium 9.2 mg/dL (7.8-10.44); Carbon Dioxide 26 mmol/L (22-29); Chloride 105 mmol/L (98-107); Estimated GFR 99; Glucose 158 mg/dL (70-105); Potassium 3.7 mmol/L (3.5-5.1); Sodium 140 mmol/L (136-145)
[2022-05-30 05:00] LABS: #Basophils 0.1 thou/uL (0.0-0.2); #Eosinphils 0.2 thou/uL (0.0-0.7); #Lymphocytes 2.1 thou/uL (1.20-3.40); #Monocytes 0.3 thou/uL (0.11-0.59); #Neutrophils 2.3 thou/uL (1.40-6.50); %Basophils 1.1 % (0.0-1.0); %Eosinophils 4.4 % (0.0-10.0); %Lymphocytes 41.4 % (21.0-51.0); %Monocytes 6.6 % (0.0-10.0); %Neutrophils 46.4 % (42.0-75.0); Hemoglobin 12.6 g/dL (12.0-16.0); Mean Corpuscular Hemoglobin 31.8 pg (27.0-31.0); Mean Corpuscular Volume 96.6 fL (78.0-98.0); Mean Platelet Volume 8.5 fL (7.4-10.4); Platelet Count 189 thou/uL (130-400); RBC Distribution Width 16.3 % (11.5-14.5); Red Blood Cell (RBC) Count 3.96 mill/uL (4.20-5.40); White Blood Cell (WBC) Count 5.1 thou/uL (4.8-10.8)
[2022-05-30] MEDS: Carvedilol 6.25 MG TAB PO SCH ×2 (05:56→15:45)
[2022-05-30] MEDS: Isosorbide Dinitrate 20 MG TAB PO SCH (05:56)
[2022-05-30] MEDS: carBAMazepine 100 mg Chewable Tablet PO SCH (05:56)
[2022-05-30] MEDS: Famotidine 20 MG TAB PO SCH (05:56)
[2022-05-30] MEDS: Aspirin Chewable 81 MG TAB PO SCH (05:56)
[2022-05-30] MEDS ORDERED: Heparin 10,000 UNITS/ 10 ML VIAL ONE (06:36)
[2022-05-30] MEDS ORDERED: Lidocaine 1% (PF) 30 ML VIAL ONE (06:36)
[2022-05-30] MEDS ORDERED: Midazolam HCl 2 mg/2 ml Vial ONE (07:33)
[2022-05-30] MEDS ORDERED: hydrALAZINE 20 MG/ML VIAL SLOW IVP PRN (07:59)
[2022-05-30] MEDS ORDERED: Ferrous Sulfate 325 MG TAB PO SCH (08:00)
[2022-05-30] MEDS ORDERED: Nitroglycerin 100MG/250ML BOT 250 ML ONE (08:15)
[2022-05-30] MEDS ORDERED: TICAGRELOR 90 MG TABLET ONE (08:15)
[2022-05-30] MEDS ORDERED: hydrALAZINE 20 MG/ML VIAL ONE (08:31)
[2022-05-30] MEDS ORDERED: Lisinopril 10 MG TAB PO SCH (09:00)
[2022-05-30] MEDS ORDERED: Aspirin 81 mg Enteric Coated Tablet PO SCH (09:00)
[2022-05-30] MEDS ORDERED: Lisinopril 2.5 MG TAB PO SCH (09:00)
[2022-05-30] MEDS ORDERED: Empagliflozin 10 MG TAB PO SCH ×2 (09:00→11:00)
[2022-05-30] MEDS ORDERED: Acetaminophen 325 MG TAB ONE (09:32)
[2022-05-30] MEDS: Acetaminophen 325 MG TAB PO PRN ×2 (09:40→15:45)
[2022-05-30] MEDS ORDERED: Ondansetron PF 4 MG/2 ML Vial ONE (11:53)
[2022-05-30] MEDS: Nitroglycerin 2% Ointment 1 INCH/1 GM Packet TOP SCH ×2 (12:40→19:16)
[2022-05-30 15:43] VITALS: BP 143/76; TEMP 98.2
[2022-05-30] MEDS ORDERED: TICAGRELOR 90 MG TABLET PO SCH (21:00)
[2022-05-31] MEDS ORDERED: Clopidogrel Bisulfate 75 MG TAB PO SCH (09:00)
[2022-05-31] MEDS ORDERED: Empagliflozin 10 MG TAB PO SCH (09:00)
== END 2022-05-30 18:45 | disposition home or self-care (01) ==
LOC: ERS 02:15 → ERHOLD 04:13 → 2SW 16:29 → INTOOBSV 05-30 09:30 → OBSVTOIN 05-30 09:30
PROVIDERS: ADMIT Internal Medicine; ATTEND Internal Medicine
PROC: 027034Z Dilation of Coronary Artery, One Artery with Drug-eluting Intraluminal Device, Percutaneous Approach (ICD-10-PCS; principal; 2022-05-30)
PROC: 4A023N7 Measurement of Cardiac Sampling and Pressure, Left Heart, Percutaneous Approach (ICD-10-PCS; 2022-05-30)
PROC: B2111ZZ Fluoroscopy of Multiple Coronary Arteries using Low Osmolar Contrast (ICD-10-PCS; 2022-05-30)
PROC: B2131ZZ Fluoroscopy of Multiple Coronary Artery Bypass Grafts using Low Osmolar Contrast (ICD-10-PCS; 2022-05-30)
DX: T82.855A Stenosis of coronary artery stent, initial encounter (principal); I25.10 Atherosclerotic heart disease of native coronary artery without angina pectoris; I21.4 Non-ST elevation (NSTEMI) myocardial infarction; I11.0 Hypertensive heart disease with heart failure; I50.22 Chronic systolic (congestive) heart failure; I25.2 Old myocardial infarction; E11.9 Type 2 diabetes mellitus without complications; E78.5 Hyperlipidemia, unspecified; I25.5 Ischemic cardiomyopathy; Z87.891 Personal history of nicotine dependence; Z79.02 Long term (current) use of antithrombotics/antiplatelets; Z79.82 Long term (current) use of aspirin; Z79.899 Other long term (current) drug therapy; Z95.1 Presence of aortocoronary bypass graft; Z20.822 Contact with and (suspected) exposure to COVID-19; Y71.3 Surgical instruments, materials and cardiovascular devices (including sutures) associated with adverse incidents
CPT/HCPCS: 36415; 36416; 71045; 80048; 80053; 82553; 83880; 84484; 85025; 85347; 92928; 93005; 93880; 96374; 96375; 99152; 99153; C1769; C9600; G0378; J0360; J1644; J1650; J2001; J2250; J2270; J2405; Q0162; S0028; U0002

== ENCOUNTER 2023-11-02 19:46 | Observation (INO) | payer MEDICARE ==
[2023-11-03] MEDS ORDERED: Ondansetron PF 4 MG/2 ML Vial IVP PRN (03:18)
[2023-11-03] MEDS ORDERED: Nitroglycerin 0.4 MG TAB (25 Tab Bottle) SL PRN (03:20)
[2023-11-03 05:12] LABS: #Eosinphils 0.2 thou/uL (0.0-0.7); #Monocytes 0.3 thou/uL (0.11-0.59); #Neutrophils 2.7 thou/uL (1.40-6.50); %Basophils 0.4 % (0.0-1.0); %Eosinophils 3.5 % (0.0-10.0); %Lymphocytes 42.2 % (21.0-51.0); %Neutrophils 47.7 % (42.0-75.0); Hematocrit 38.2 % (36.0-47.0); Hemoglobin 12.3 g/dL (12.0-16.0); Mean Corpuscular HGB CONC 32.2 g/dL (32.0-36.0); Mean Corpuscular Hemoglobin 30.7 pg (27.0-31.0); Mean Corpuscular Volume 95.3 fl (78.0-98.0); Mean Platelet Volume 10.4 fL (7.4-10.4); Platelet Count 199 10x3/uL (130-400); RBC Distribution Width 12.6 % (11.5-14.5); Red Blood Cell (RBC) Count 4.01 mill/uL (4.20-5.40); White Blood Cell (WBC) Count 5.7 10x3/uL (4.8-10.8)
[2023-11-03 05:34] LABS: Anion Gap 14 mmol/L (10-20); BUN (Urea Nitrogen) 9 mg/dL (7.0-18.7); Calc. Creatinine Clearance 0 mL/min (70-130); Carbon Dioxide 27 mmol/L (22-29); Cardiac Risk 5.3 (Less than 4.5); Chloride 103 mmol/L (98-107); Cholesterol 186 mg/dl (< 200 Desired); Estimated GFR 100; Glucose 161 mg/dL (70-105); HDL Cholesterol 35 mg/dL (>60 Neg Risk); LDL Cholesterol, Calculated 118 mg/dL; Potassium 3.5 mmol/L (3.5-5.1); Sodium 140 mmol/L (136-145); Triglycerides 166 mg/dL (Less than 150)
[2023-11-03 05:37] LABS: Troponin I Less than 0.010 ng/mL (< 0.028)
[2023-11-03 07:37] VITALS: BMI 30.8
[2023-11-03] MEDS ORDERED: Clopidogrel Bisulfate 75 MG TAB PO SCH (09:00)
[2023-11-03] MEDS: Aspirin 81 mg Enteric Coated Tablet PO SCH (10:36)
[2023-11-03] MEDS: Clopidogrel Bisulfate 75 MG TAB PO SCH (10:36)
[2023-11-03] MEDS: Carvedilol 25 MG TAB PO SCH ×2 (10:37→20:07)
[2023-11-03] MEDS: carBAMazepine 100 mg Chewable Tablet PO SCH (10:37)
[2023-11-03] MEDS: Enoxaparin 40 MG (0.4 mL) SYRINGE SC SCH (10:37)
[2023-11-03] MEDS: Acetaminophen 325 MG TAB PO PRN ×2 (10:40→23:11)
[2023-11-03] MEDS ORDERED: Atorvastatin Calcium 40 MG TAB PO SCH ×2 (21:00)
[2023-11-04 04:39] LABS: #Eosinphils 0.2 thou/uL (0.0-0.7); #Monocytes 0.4 thou/uL (0.11-0.59); #Neutrophils 2.3 thou/uL (1.40-6.50); %Basophils 0.4 % (0.0-1.0); %Eosinophils 3.3 % (0.0-10.0); %Neutrophils 42.1 % (42.0-75.0); Hematocrit 35.2 % (36.0-47.0); Hemoglobin 11.7 g/dL (12.0-16.0); Mean Corpuscular HGB CONC 33.2 g/dL (32.0-36.0); Mean Corpuscular Volume 96.2 fl (78.0-98.0); Mean Platelet Volume 10.9 fL (7.4-10.4); Platelet Count 204 10x3/uL (130-400); RBC Distribution Width 12.5 % (11.5-14.5); Red Blood Cell (RBC) Count 3.66 mill/uL (4.20-5.40); White Blood Cell (WBC) Count 5.4 10x3/uL (4.8-10.8)
[2023-11-04 05:01] LABS: Anion Gap 13 mmol/L (10-20); BUN (Urea Nitrogen) 13 mg/dL (7.0-18.7); Calc. Creatinine Clearance 102 mL/min (70-130); Calcium 8.8 mg/dL (7.8-10.44); Carbon Dioxide 26 mmol/L (22-29); Chloride 102 mmol/L (98-107); Estimated GFR 87; Glucose 299 mg/dL (70-105); Magnesium 1.7 mg/dL (1.6-2.6); Potassium 3.6 mmol/L (3.5-5.1); Sodium 137 mmol/L (136-145)
[2023-11-04] MEDS: Acetaminophen 325 MG TAB PO PRN (07:54)
[2023-11-04] MEDS: Enoxaparin 40 MG (0.4 mL) SYRINGE SC SCH (07:54)
[2023-11-04] MEDS: carBAMazepine 100 mg Chewable Tablet PO SCH (07:55)
[2023-11-04] MEDS: Aspirin 81 mg Enteric Coated Tablet PO SCH (07:55)
[2023-11-04] MEDS: Clopidogrel Bisulfate 75 MG TAB PO SCH (07:55)
[2023-11-04] MEDS ORDERED: Iopamidol-370 76% 500 ML MDV (1 ML CHARGE) ONE (08:51)
[2023-11-04] MEDS ORDERED: Dextrose 50% Abboject 50 ML SYRINGE SLOW IVP PRN (09:32)
[2023-11-04] MEDS ORDERED: Glucagon 1 MG/ML KIT IM PRN (09:32)
[2023-11-04] MEDS ORDERED: HumaLOG 300 UNITS/3 ML VIAL SC PRN (09:32)
[2023-11-04] MEDS ORDERED: Dextrose 5% in Water 1,000 ML IV PRN (09:32)
[2023-11-04] MEDS ORDERED: ADENOSINE 60 MG/20 ML SDV ONE (10:42)
[2023-11-04] MEDS: Carvedilol 25 MG TAB PO SCH (12:08)
[2023-11-04] MEDS: HumaLOG 300 UNITS/3 ML VIAL SC PRN ×2 (12:53→17:37)
[2023-11-04 15:38] VITALS: BP 163/80; TEMP 98
[2023-11-04 15:51] LABS: BHCG - Serum Negative (NEGATIVE); Pregs Control Background? CLEAR/WHITE (CLR/WHITE); Pregs Control Bar Appear? YES (CONTROL BAR)
[2023-11-05] MEDS ORDERED: Isosorbide Mononitrate 30 MG ER.TAB PO SCH (09:00)
== END 2023-11-04 19:30 | disposition home or self-care (01) ==
LOC: 2SW 19:46
PROVIDERS: ADMIT Internal Medicine; ATTEND Family Medicine
DX: I25.10 Atherosclerotic heart disease of native coronary artery without angina pectoris (principal); I10 Essential (primary) hypertension; E11.9 Type 2 diabetes mellitus without complications; G43.909 Migraine, unspecified, not intractable, without status migrainosus; R53.1 Weakness; F17.290 Nicotine dependence, other tobacco product, uncomplicated; Z95.5 Presence of coronary angioplasty implant and graft; Z79.82 Long term (current) use of aspirin; Z79.899 Other long term (current) drug therapy
CPT/HCPCS: 71045; 71275; 74174; 78452; 80048 ×2; 80053; 80061; 82962 ×2; 83690; 83735; 83880; 84484 ×3; 84703; 85025 ×3; 93005 ×2; 93017; 96372 ×2; 96374; 96375; 96376; 99285; A9502; G0378 ×2; 36415; 36416; 93010; J0153; J1650; J1815; J2270; J2405; Q9967